=== PATIENT | male | born 1960 | race African-American/Black ===

== ENCOUNTER → 2017-02-08 | Outpatient (CLI) | payer MEDICARE ==
[~2017-02-08] MED LIST: ALBU18 IN; AMIO200T33 PO; ASPI81TA27 PO; ATEN50TA80; CARI-277 PO; FAM20T PO; FOLI1TAB6; IBU100LQ PO; LEVO125T66 PO; LISI40TA; LORA2TAB10 PO; MET50T GT; MULTTAB99 GT; NOR10T; QUET25TA37 PO
== END | disposition home or self-care (01) ==
LOC: Rad HDHVI 14:55
PROVIDERS: ATTEND Internal Medicine Cardiovascular Disease
DX: I11.0 Hypertensive heart disease with heart failure (principal); I50.9 Heart failure, unspecified; J44.9 Chronic obstructive pulmonary disease, unspecified; R06.01 Orthopnea; Z95.2 Presence of prosthetic heart valve; Z86.73 Personal history of transient ischemic attack (TIA), and cerebral infarction without residual deficits
CPT/HCPCS: 93306

== ENCOUNTER → 2017-04-04 | Outpatient (CLI) | payer MEDICARE ==
[2017-04-04 12:26] LABS: Urine Bilirubin Negative (Negative); Urine Blood Negative /uL (Negative); Urine Color Yellow (Yellow); Urine Glucose Normal (Normal); Urine Ketone Negative (Negative); Urine Nitrite Negative (Negative); Urine Urobilinogen Normal (Negative); Urine pH 5.5 (5.0-8.0)
[2017-04-04 12:35] LABS: Basophils # (auto) 0 uL; Basophils % (auto) 0.8 % (0.0-2.0); CONDITION Y; Eosinophils # (auto) 0.4 uL; Eosinophils % (auto) 6.9 % (0.0-7.0); Hematocrit 39.3 % (41.0-53.0); Hemoglobin 13.4 g/dL (13.5-17.5); Lymphocytes # (auto) 0.9 uL; Lymphocytes % (auto) 15.2 % (10.0-50.0); Mean Corpuscular Hgb Conc. 34.2 g/dL (32.0-36.0); Mean Corpuscular Volume 99.6 fL (80.0-100.0); Mean Platelet Volume 7.2 fL (7.4-10.4); Monocytes # (auto) 0.5 uL; Monocytes % (auto) 7.9 % (0.0-12.0); Neutrophils # (auto) 4.1 uL; Neutrophils % (auto) 69.2 % (37.0-80.0); Platelet Count (auto) 284 10^3/uL (140-450); Red Cell Distribution Width 14.9 % (11.6-16.0)
[2017-04-04 13:04] LABS: Albumin 3.7 g/dL (3.4-5.0); BUN/Creatinine Ratio 20.5; Bilirubin, Direct 0.2 mg/dL (0-0.2); Bilirubin, Total 0.5 mg/dL (0.2-1.0); Calcium 8.9 mg/dL (8.5-10.1); Potassium 4.5 mmol/L (3.5-5.1); Total Protein 7.8 g/dL (6.4-8.2)
== END | disposition home or self-care (01) ==
LOC: LAB 08:28
PROVIDERS: ATTEND Internal Medicine Cardiovascular Disease
DX: I10 Essential (primary) hypertension (principal); E78.00 Pure hypercholesterolemia, unspecified; K74.1 Hepatic sclerosis; E11.9 Type 2 diabetes mellitus without complications; E03.9 Hypothyroidism, unspecified; D64.9 Anemia, unspecified; E55.9 Vitamin D deficiency, unspecified; N39.0 Urinary tract infection, site not specified
CPT/HCPCS: 36415; 80048; 80061; 80076; 81003; 82306; 83036; 84443; 85025

== ENCOUNTER → 2017-06-20 | Outpatient (CLI) | payer MEDICARE | END | disposition home or self-care (01) | LOC: LAB 09:14 | PROVIDERS: ATTEND Internal Medicine Cardiovascular Disease | DX: E03.9 Hypothyroidism, unspecified (principal) | CPT/HCPCS: 36415; 84443 ==

== ENCOUNTER → 2017-08-01 | Outpatient (CLI) | payer MEDICARE | END | disposition home or self-care (01) | LOC: Rad HDHVI 11:02 | PROVIDERS: ATTEND Internal Medicine Cardiovascular Disease | DX: M85.88 Other specified disorders of bone density and structure, other site (principal); Z96.643 Presence of artificial hip joint, bilateral ==

== ENCOUNTER 2017-08-03 17:26 | Emergency (ER) | payer MEDICARE ==
[~2017-08-03] VITALS: Ht 180.3 cm; Wt 62.1 kg
[2017-08-03 18:12] VITALS: BP 117/79
[2017-08-03 19:02] LABS: Albumin 2.9 g/dL (3.4-5.0); BUN/Creatinine Ratio 13.7; Bilirubin, Total 0.7 mg/dL (0.2-1.0); Calcium 8.2 mg/dL (8.5-10.1); Potassium 4.4 mmol/L (3.5-5.1); Total Protein 7.7 g/dL (6.4-8.2)
[2017-08-03 19:18] LABS: Basophils # (auto) 0 uL; Basophils % (auto) 0.3 % (0.0-2.0); Eosinophils # (auto) 0.4 uL; Eosinophils % (auto) 5.8 % (0.0-7.0); Hematocrit 37.7 % (41.0-53.0); Hemoglobin 12.3 g/dL (13.5-17.5); Lymphocytes # (auto) 0.5 uL; Lymphocytes % (auto) 7.9 % (10.0-50.0); Mean Corpuscular Hemoglobin 34.2 pg (28.0-32.0); Mean Corpuscular Hgb Conc. 32.6 g/dL (32.0-36.0); Mean Corpuscular Volume 104.8 fL (80.0-100.0); Mean Platelet Volume 6.4 fL (6.9-10.8); Monocytes # (auto) 0.5 uL; Monocytes % (auto) 7.8 % (0.0-12.0); Neutrophils # (auto) 4.8 uL; Neutrophils % (auto) 78.2 % (37.0-80.0); Platelet Count (auto) 181 10^3/uL (140-450); Red Cell Distribution Width 13.5 % (11.8-14.3); White Blood Cell 6.1 10^3/uL (4.4-10.8)
== END 2017-08-03 23:05 | disposition left against medical advice (07) ==
LOC: ER 17:36
DX: R50.9 Fever, unspecified (principal); Z53.21 Procedure and treatment not carried out due to patient leaving prior to being seen by health care provider
CPT/HCPCS: 36415; 80053; 85025

== ENCOUNTER → 2017-11-16 | Outpatient (CLI) | payer MEDICARE ==
[~2017-11-16] MED LIST changes: -IBU100LQ PO; +IBUP100S11 PO
[2017-11-16 12:07] LABS: Urine Blood TRACE /uL (Negative); Urine Specific Gravity 1.026 (1.001-1.035)
[2017-11-16 12:10] LABS: Basophils # (auto) 0.1 uL; Basophils % (auto) 0.9 % (0.0-2.0); Eosinophils # (auto) 0.4 uL; Hematocrit 38.6 % (41.0-53.0); Hemoglobin 12.8 g/dL (13.5-17.5); Lymphocytes # (auto) 0.7 uL; Lymphocytes % (auto) 10.4 % (10.0-50.0); Mean Corpuscular Hemoglobin 31.6 pg (28.0-32.0); Mean Corpuscular Hgb Conc. 33.2 g/dL (32.0-36.0); Mean Corpuscular Volume 95.2 fL (80.0-100.0); Monocytes # (auto) 0.5 uL; Monocytes % (auto) 7.8 % (0.0-12.0); Neutrophils % (auto) 74.9 % (37.0-80.0); Nucleated Red Blood Cells % 0.6 %; Platelet Count (auto) 262 10^3/uL (140-450); Red Blood Cells 4.05 10^6/uL (4.5-5.90); Red Cell Distribution Width 14.8 % (11.8-14.3); White Blood Cell 6.7 10^3/uL (4.4-10.8)
[2017-11-16 12:23] LABS: Free T4 (Free Thyroxine) 1.02 ng/dL (0.89-1.76); Prostate Specific Antigen 0.4 ng/mL (0.0-4.0)
[2017-11-16 12:30] LABS: Albumin 3.6 g/dL (3.4-5.0); BUN/Creatinine Ratio 20.7; Bilirubin, Direct 0.2 mg/dL (0-0.2); Bilirubin, Total 0.7 mg/dL (0.2-1.0); Calcium 8.9 mg/dL (8.5-10.1); Potassium 4.2 mmol/L (3.5-5.1); Total Protein 8.6 g/dL (6.4-8.2)
== END | disposition home or self-care (01) ==
LOC: Rad HDHVI 07:59
PROVIDERS: ATTEND Internal Medicine Cardiovascular Disease
DX: I34.0 Nonrheumatic mitral (valve) insufficiency (principal); E78.00 Pure hypercholesterolemia, unspecified; D64.9 Anemia, unspecified; E11.9 Type 2 diabetes mellitus without complications; E03.9 Hypothyroidism, unspecified; E55.9 Vitamin D deficiency, unspecified; K74.1 Hepatic sclerosis; R53.81 Other malaise; R97.20 Elevated prostate specific antigen [PSA]; I10 Essential (primary) hypertension; D51.9 Vitamin B12 deficiency anemia, unspecified
CPT/HCPCS: 36415; 80048; 80061; 80076; 81003; 82306; 82607; 83036; 84153; 84439; 84443; 85025; 93306

== ENCOUNTER → 2018-02-21 | Outpatient (CLI) | payer MEDICARE ==
[2018-02-21 16:11] LABS: Basophils # (auto) 0.1 uL; Basophils % (auto) 1.4 % (0.0-2.0); Eosinophils # (auto) 0.7 uL; Eosinophils % (auto) 9.6 % (0.0-7.0); Hemoglobin 12.5 g/dL (13.5-17.5); Lymphocytes # (auto) 0.6 uL; Lymphocytes % (auto) 8.3 % (10.0-50.0); Mean Corpuscular Hemoglobin 31.4 pg (28.0-32.0); Mean Corpuscular Hgb Conc. 33.8 g/dL (32.0-36.0); Mean Corpuscular Volume 92.9 fL (80.0-100.0); Monocytes # (auto) 0.5 uL; Monocytes % (auto) 6.7 % (0.0-12.0); Neutrophils # (auto) 5.5 uL; Nucleated Red Blood Cells % 0.2 %; Platelet Count (auto) 224 10^3/uL (140-450); Red Blood Cells 3.99 10^6/uL (4.5-5.90); White Blood Cell 7.5 10^3/uL (4.4-10.8)
[2018-02-21 16:16] LABS: INR 0.98 (0.9-1.15); Prothrombin Time 10.7 sec (9.37-12.3)
[2018-02-21 16:28] LABS: Albumin 3.4 g/dL (3.4-5.0); BUN/Creatinine Ratio 15.1; Bilirubin, Total 0.5 mg/dL (0.2-1.0); CRP High Sensitivity 5.56 mg/dL (< 0.3); Calcium 8.9 mg/dL (8.5-10.1); Potassium 4.2 mmol/L (3.5-5.1); Total Protein 8.4 g/dL (6.4-8.2)
== END | disposition home or self-care (01) ==
LOC: Rad HDHVI 13:51
PROVIDERS: ATTEND Internal Medicine Cardiovascular Disease
DX: Z01.818 Encounter for other preprocedural examination (principal); R10.2 Pelvic and perineal pain; I10 Essential (primary) hypertension; E03.9 Hypothyroidism, unspecified; E11.9 Type 2 diabetes mellitus without complications; E78.00 Pure hypercholesterolemia, unspecified; Z96.643 Presence of artificial hip joint, bilateral
CPT/HCPCS: 36415; 72192; 80053; 85025; 85610; 85652; 85730; 86141

== ENCOUNTER → 2018-03-08 | Outpatient (CLI) | payer MEDICARE | END | disposition home or self-care (01) | LOC: RT 12:24 | DX: Z01.818 Encounter for other preprocedural examination (principal); I10 Essential (primary) hypertension; E03.9 Hypothyroidism, unspecified; E11.9 Type 2 diabetes mellitus without complications; E78.00 Pure hypercholesterolemia, unspecified | CPT/HCPCS: 36600; 82805 ==

== ENCOUNTER → 2018-03-13 | Outpatient (CLI) | payer MEDICARE ==
[2018-03-13 16:23] LABS: Partial Thromboplastin Time 31.5 sec (23.78-33.04); Prothrombin Time 10.7 sec (9.27-12.13)
[2018-03-13 16:31] LABS: Albumin 3.5 g/dL (3.4-5.0); BUN/Creatinine Ratio 12.5; Basophils # (auto) 0.1 uL; Basophils % (auto) 0.9 % (0.0-2.0); Bilirubin, Total 0.5 mg/dL (0.2-1.0); CRP High Sensitivity 7.06 mg/dL (< 0.3); Calcium 8.7 mg/dL (8.5-10.1); Eosinophils # (auto) 0.8 uL; Eosinophils % (auto) 9.9 % (0.0-7.0); Hemoglobin 12.1 g/dL (13.5-17.5); Lymphocytes # (auto) 0.9 uL; Mean Corpuscular Hemoglobin 31.5 pg (28.0-32.0); Mean Corpuscular Hgb Conc. 33.7 g/dL (32.0-36.0); Mean Corpuscular Volume 93.5 fL (80.0-100.0); Monocytes # (auto) 0.6 uL; Monocytes % (auto) 7.2 % (0.0-12.0); Neutrophils # (auto) 5.9 uL; Nucleated Red Blood Cells % 0.1 %; Platelet Count (auto) 241 10^3/uL (140-450); Potassium 3.7 mmol/L (3.5-5.1); Red Blood Cells 3.85 10^6/uL (4.5-5.90); Red Cell Distribution Width 14.9 % (11.8-14.3); Total Protein 8.6 g/dL (6.4-8.2); White Blood Cell 8.3 10^3/uL (4.4-10.8)
== END | disposition home or self-care (01) ==
LOC: LAB 14:59
PROVIDERS: ATTEND Internal Medicine Cardiovascular Disease
DX: M25.551 Pain in right hip (principal); E03.9 Hypothyroidism, unspecified; E78.00 Pure hypercholesterolemia, unspecified; E11.9 Type 2 diabetes mellitus without complications; I10 Essential (primary) hypertension; D68.9 Coagulation defect, unspecified; Z96.641 Presence of right artificial hip joint; Z79.82 Long term (current) use of aspirin
CPT/HCPCS: 36415; 80053; 85025; 85610; 85652; 85730; 86141

== ENCOUNTER 2018-03-20 13:15 | Emergency (ER) | payer MEDICARE ==
[~2018-03-20] VITALS: Ht 180.3 cm; Wt 63.5 kg
[2018-03-20] MEDS ORDERED: HYDROmorphone HCL 2 MG/ML VL IV ONE (15:45)
[2018-03-20] MEDS ORDERED: ONDANSETRON HCL 4 MG/2 ML VIAL IV ONE (15:45)
[2018-03-20] MEDS ORDERED: SODIUM CHLORIDE 0.9% 500 ML IV ONE (15:45)
[2018-03-20 16:46] LABS: Basophils # (auto) 0.1 uL; Basophils % (auto) 0.8 % (0.0-2.0); Eosinophils # (auto) 0.6 uL; Eosinophils % (auto) 7.5 % (0.0-7.0); Hematocrit 38.1 % (41.0-53.0); Hemoglobin 12.8 g/dL (13.5-17.5); Lymphocytes # (auto) 0.6 uL; Lymphocytes % (auto) 7.3 % (10.0-50.0); Mean Corpuscular Hemoglobin 31.2 pg (28.0-32.0); Mean Corpuscular Hgb Conc. 33.5 g/dL (32.0-36.0); Monocytes # (auto) 0.4 uL; Monocytes % (auto) 5.2 % (0.0-12.0); Neutrophils # (auto) 6.2 uL; Neutrophils % (auto) 79.2 % (37.0-80.0); Nucleated Red Blood Cells % 0.2 %; Platelet Count (auto) 245 10^3/uL (140-450); Red Cell Distribution Width 14.7 % (11.8-14.3); White Blood Cell 7.8 10^3/uL (4.4-10.8)
[2018-03-20 17:01] LABS: Albumin 3.2 g/dL (3.4-5.0); BUN/Creatinine Ratio 12.7; Calcium 8.5 mg/dL (8.5-10.1); Magnesium 1.7 mg/dL (1.6-2.6)
[2018-03-20 17:04] LABS: Bilirubin, Total 0.3 mg/dL (0.2-1.0); Total Protein 8.5 g/dL (6.4-8.2)
[2018-03-20 17:26] LABS: INR 0.98 (0.9-1.15); Partial Thromboplastin Time 30.3 sec (23.78-33.04); Prothrombin Time 10.5 sec (9.27-12.13)
[2018-03-20] MEDS ORDERED: HYDROcodone-ACET 10/325MG TAB PO ONE (19:00)
[2018-03-20] MEDS ORDERED: MORPHINE SULF INJ 2 MG/ML SYRINGE 1ML ONE (20:54)
[2018-03-20] MEDS ORDERED: MORPHINE SULFATE 8mg/ml INJ SDV IV ONE (21:00)
[2018-03-20 21:47] VITALS: BP 153/87
== END 2018-03-20 22:31 | disposition left against medical advice (07) ==
LOC: ER 13:15
DX: T84.51XA Infection and inflammatory reaction due to internal right hip prosthesis, initial encounter (principal); M00.851 Arthritis due to other bacteria, right hip; I12.9 Hypertensive chronic kidney disease with stage 1 through stage 4 chronic kidney disease, or unspecified chronic kidney disease; N18.3 Chronic kidney disease, stage 3 (moderate); J44.9 Chronic obstructive pulmonary disease, unspecified; Z79.82 Long term (current) use of aspirin; Z86.73 Personal history of transient ischemic attack (TIA), and cerebral infarction without residual deficits; Z87.11 Personal history of peptic ulcer disease; Z95.1 Presence of aortocoronary bypass graft; Z96.643 Presence of artificial hip joint, bilateral; Z90.49 Acquired absence of other specified parts of digestive tract; Z88.1 Allergy status to other antibiotic agents
CPT/HCPCS: 36415; 73502; 73700; 80053; 83735; 85025; 85610; 85730; 94761; 96374; 96375; 99285; J1170; J2270; J2405; J7030

== ENCOUNTER → 2018-03-22 | Outpatient (CLI) | payer MEDICARE ==
[~2018-03-22] MED LIST changes: +ONDANSETRON HCL 4 MG/2 ML VIAL IV ONE; +ONDANSETRON HCL 4 MG/2 ML VIAL ONE
[2018-03-22 14:15] VITALS: BP 111/67
[2018-03-22 15:15] VITALS: BP 129/83
== END | disposition home or self-care (01) ==
LOC: Rad HDHVI 14:09
PROVIDERS: ATTEND Internal Medicine Cardiovascular Disease
DX: Z01.818 Encounter for other preprocedural examination (principal); I13.10 Hypertensive heart and chronic kidney disease without heart failure, with stage 1 through stage 4 chronic kidney disease, or unspecified chronic kidney disease; E11.22 Type 2 diabetes mellitus with diabetic chronic kidney disease; N18.3 Chronic kidney disease, stage 3 (moderate); E03.9 Hypothyroidism, unspecified; J44.9 Chronic obstructive pulmonary disease, unspecified; I70.0 Atherosclerosis of aorta; M25.551 Pain in right hip; E78.00 Pure hypercholesterolemia, unspecified; Z79.82 Long term (current) use of aspirin; Z90.49 Acquired absence of other specified parts of digestive tract; Z96.641 Presence of right artificial hip joint; Z95.1 Presence of aortocoronary bypass graft; Z86.73 Personal history of transient ischemic attack (TIA), and cerebral infarction without residual deficits
CPT/HCPCS: 71046; 93005; 96374; G0463; J2405

== ENCOUNTER 2018-08-17 16:21 | Emergency (ER) | payer MEDICARE, MEDICAID ==
[~2018-08-17 16:21] MED LIST changes: -ONDANSETRON HCL 4 MG/2 ML VIAL IV ONE; -ONDANSETRON HCL 4 MG/2 ML VIAL ONE
[2018-08-17 17:42] VITALS: BP 137/84
== END 2018-08-17 17:13 | disposition home or self-care (01) ==
LOC: EDBD 16:21 → ER 16:21 → EDUNIT# 16:21 → ER 17:13
DX: S76.011A Strain of muscle, fascia and tendon of right hip, initial encounter (principal); J44.9 Chronic obstructive pulmonary disease, unspecified; I10 Essential (primary) hypertension; E07.9 Disorder of thyroid, unspecified; Z86.73 Personal history of transient ischemic attack (TIA), and cerebral infarction without residual deficits; Z79.82 Long term (current) use of aspirin; Z79.899 Other long term (current) drug therapy; Z88.1 Allergy status to other antibiotic agents; W10.9XXA Fall (on) (from) unspecified stairs and steps, initial encounter; Y93.89 Activity, other specified; Y99.8 Other external cause status; Y92.89 Other specified places as the place of occurrence of the external cause
CPT/HCPCS: 73502

== ENCOUNTER → 2018-08-27 | Outpatient (CLI) | payer MEDICARE, MEDICAID | END | disposition home or self-care (01) | LOC: Rad HDHVI 14:03 | PROVIDERS: ATTEND Internal Medicine Cardiovascular Disease | DX: I08.1 Rheumatic disorders of both mitral and tricuspid valves (principal); I71.1 Thoracic aortic aneurysm, ruptured | CPT/HCPCS: 93306 ==

== ENCOUNTER 2019-01-08 18:33 | Emergency (ER) | payer MEDICARE, MEDICAID ==
[~2019-01-08] VITALS: Ht 152.4 cm; Wt 65.8 kg
[2019-01-08 18:43] VITALS: BP 120/73
[2019-01-08] MEDS ORDERED: ACETAMINOPHEN 325 MG TAB PO ONE (19:00)
[2019-01-08 19:16] LABS: Basophils # (auto) 0.1 uL; Basophils % (auto) 0.6 % (0.0-2.0); Eosinophils # (auto) 0.2 uL; Eosinophils % (auto) 1.6 % (0.0-7.0); Hematocrit 37.7 % (41.0-53.0); Hemoglobin 12.5 g/dL (13.5-17.5); Lymphocytes # (auto) 0.5 uL; Lymphocytes % (auto) 4.3 % (10.0-50.0); Mean Corpuscular Hemoglobin 31.3 pg (28.0-32.0); Mean Corpuscular Hgb Conc. 33.1 g/dL (32.0-36.0); Mean Corpuscular Volume 94.7 fL (80.0-100.0); Monocytes % (auto) 8.5 % (0.0-12.0); Neutrophils # (auto) 10.1 uL; Platelet Count (auto) 236 10^3/uL (140-450); Red Blood Cells 3.99 10^6/uL (4.5-5.90); Red Cell Distribution Width 13.7 % (11.8-14.3); White Blood Cell 11.9 10^3/uL (4.4-10.8)
[2019-01-08 19:37] LABS: Alanine Aminotransferase 76 U/L (16-61); Albumin 2.8 g/dL (3.4-5.0); Anion Gap 6 (5-15); Aspartate Aminotransferase 30 U/L (15-37); BUN/Creatinine Ratio 18.6; Blood Urea Nitrogen 19 mg/dL (7-18); Calcium 8.2 mg/dL (8.5-10.1); Carbon Dioxide 22 mmol/L (21-32); Chloride 110 mmol/L (98-107); GFR African American 96 mL/min; GFR Non-African American 80 mL/min; Glucose 117 mg/dL (74-106); INR 1.07 (0.9-1.15); Partial Thromboplastin Time 30.7 sec (23.78-33.04); Prothrombin Time 11.4 sec (9.27-12.13); Sodium 138 mmol/L (136-145)
[2019-01-08 19:47] LABS: Alkaline Phosphatase 202 U/L (45-117); Bilirubin, Total 1.4 mg/dL (0.2-1.0); Total Protein 7.5 g/dL (6.4-8.2)
== END 2019-01-08 21:20 | disposition home or self-care (01) ==
LOC: EDBD 18:33 → ER 18:37
DX: R07.89 Other chest pain (principal); J44.9 Chronic obstructive pulmonary disease, unspecified; I10 Essential (primary) hypertension; E07.9 Disorder of thyroid, unspecified; Z88.1 Allergy status to other antibiotic agents; Z79.899 Other long term (current) drug therapy; Z86.73 Personal history of transient ischemic attack (TIA), and cerebral infarction without residual deficits; Z90.49 Acquired absence of other specified parts of digestive tract; Z96.641 Presence of right artificial hip joint; Z95.1 Presence of aortocoronary bypass graft
CPT/HCPCS: 36415; 71045; 80053; 83735; 83880; 84484; 85025; 85610; 85730; 93005

== ENCOUNTER → 2019-01-09 | Outpatient (CLI) | payer MEDICARE, MEDICAID ==
[2019-01-09 15:44] LABS: Basophils # (auto) 0 uL; Basophils % (auto) 0.3 % (0.0-2.0); Eosinophils # (auto) 0.3 uL; Eosinophils % (auto) 1.9 % (0.0-7.0); Hematocrit 38.2 % (41.0-53.0); Hemoglobin 12.5 g/dL (13.5-17.5); Lymphocytes # (auto) 0.6 uL; Lymphocytes % (auto) 4.5 % (10.0-50.0); Mean Corpuscular Hemoglobin 31.4 pg (28.0-32.0); Mean Corpuscular Hgb Conc. 32.8 g/dL (32.0-36.0); Mean Corpuscular Volume 95.8 fL (80.0-100.0); Monocytes # (auto) 1.2 uL; Monocytes % (auto) 8.6 % (0.0-12.0); Neutrophils # (auto) 12.1 uL; Neutrophils % (auto) 84.7 % (37.0-80.0); Nucleated Red Blood Cells % 0.1 %; Platelet Count (auto) 267 10^3/uL (140-450); Red Blood Cells 3.99 10^6/uL (4.5-5.90); Red Cell Distribution Width 14.2 % (11.8-14.3); White Blood Cell 14.3 10^3/uL (4.4-10.8)
== END | disposition home or self-care (01) ==
LOC: LAB 13:26
PROVIDERS: ATTEND Internal Medicine Cardiovascular Disease
DX: R70.0 Elevated erythrocyte sedimentation rate (principal); D64.9 Anemia, unspecified; I10 Essential (primary) hypertension
CPT/HCPCS: 36415; 85025; 85652

== ENCOUNTER → 2019-01-15 | Outpatient (CLI) | payer MEDICARE, BC | END | disposition home or self-care (01) | LOC: Rad HDHVI 14:11 | PROVIDERS: ATTEND Internal Medicine Cardiovascular Disease | DX: I08.3 Combined rheumatic disorders of mitral, aortic and tricuspid valves (principal); I11.9 Hypertensive heart disease without heart failure; R00.2 Palpitations | CPT/HCPCS: 93306 ==

== ENCOUNTER 2019-01-24 10:01 | Inpatient (IN) | payer BC, MEDICARE, MEDICAID ==
[~2019-01-24] VITALS: Ht 172.7 cm; Wt 89.0 kg
[2019-01-24] MEDS ORDERED: cefTRIAXone 1GM/50ML D5W 50 ML IV ONE (10:30)
[2019-01-24] MEDS ORDERED: IOHEXOL 300 MG/ML 100ML BOTTLE IJ ONE (10:36)
[2019-01-24 11:20] LABS: Basophils # (auto) 0.1 uL; Basophils % (auto) 0.4 % (0.0-2.0); Eosinophils # (auto) 0.2 uL; Eosinophils % (auto) 1.4 % (0.0-7.0); Hematocrit 39.7 % (41.0-53.0); Hemoglobin 12.8 g/dL (13.5-17.5); Lymphocytes # (auto) 0.6 uL; Lymphocytes % (auto) 3.8 % (10.0-50.0); Mean Corpuscular Hemoglobin 30.1 pg (28.0-32.0); Mean Corpuscular Hgb Conc. 32.3 g/dL (32.0-36.0); Mean Corpuscular Volume 93.1 fL (80.0-100.0); Monocytes % (auto) 5.7 % (0.0-12.0); Neutrophils % (auto) 88.7 % (37.0-80.0); Platelet Count (auto) 362 10^3/uL (140-450); Red Blood Cells 4.26 10^6/uL (4.5-5.90); Red Cell Distribution Width 13.3 % (11.8-14.3); White Blood Cell 16.9 10^3/uL (4.4-10.8)
[2019-01-24 11:28] LABS: Alanine Aminotransferase 45 U/L (16-61); Albumin 2.8 g/dL (3.4-5.0); Anion Gap 8 (5-15); Blood Urea Nitrogen 21 mg/dL (7-18); Carbon Dioxide 21 mmol/L (21-32); Chloride 106 mmol/L (98-107); Glucose 103 mg/dL (74-106); Potassium 3.8 mmol/L (3.5-5.1); Sodium 135 mmol/L (136-145)
[2019-01-24 11:33] LABS: Alkaline Phosphatase 256 U/L (45-117); Aspartate Aminotransferase 26 U/L (15-37); BUN/Creatinine Ratio 18.8; Bilirubin, Total 0.5 mg/dL (0.2-1.0); GFR African American 87 mL/min; GFR Non-African American 72 mL/min; Total Protein 8.5 g/dL (6.4-8.2)
[2019-01-24 11:34] LABS: INR 1.08 (0.9-1.15); Prothrombin Time 11.5 sec (9.27-12.13)
[2019-01-24] MEDS ORDERED: ONDANSETRON HCL 4 MG/2 ML VIAL IV ONE (12:30)
[2019-01-24] MEDS ORDERED: HYDROcodone-ACET 5/325MG TAB PO ONE (12:30)
[2019-01-24] MEDS ORDERED: LEVOTHYROXINE SODIUM 50 MCG TAB PO ONE (16:00)
[2019-01-24] MEDS ORDERED: CLINDAMYCIN 600MG IV 50 ML IV ONE (16:15)
[2019-01-24] MEDS ORDERED: MORPHINE SULF INJ 2 MG/ML SYRINGE 1ML IV ONE (16:45)
[2019-01-24] MEDS ORDERED: NITROGLYCERIN 0.4 MG SL TAB SL PRN (17:00)
[2019-01-24] MEDS ORDERED: MORPHINE SULF INJ 2 MG/ML SYRINGE 1ML IV PRN (17:00)
[2019-01-24] MEDS ORDERED: VANCOMYCIN 1GM/250ML 250 ML IV ONE (17:00)
--- NOTE | 2019-01-24 18:41 | NUR ---
PRN MED NEB ASSESSMENT. PT DENIES SOB. NO DISTRESS NOTED AT THIS TIME. POX 95% ON RA HR 82 RR 18. BS ARE CLEAR AND DIMINISHED. TX NOT GIVEN.
--- NOTE | 2019-01-24 20:00 | NUR ---
Patient arrived on unit. Patient awake and alert. Patient is severely hard of hearing and vision impaired. Notice in patient room about hearing and vision impairment placed. Attempted to obtain phone number of family to update on status. Patient was not able to comprehend request. Patient able to see objects within reach but was not able to read written text. Patient orientated to room, call light within patient's reach. Bed locked in lowest position. Will continue to monitor.
[2019-01-24] MEDS: KETOROLAC TROMETH 30 MG/ML 1ML VIAL IV PRN (20:30)
[2019-01-24 22:00] VITALS: BP 110/61
[2019-01-24] MEDS: ATORVASTATIN 20 MG TAB PO SCH (22:29)
[2019-01-24] MEDS: ZOLPIDEM TARTRATE 5 MG TAB PO SCH (22:29)
[2019-01-24] MEDS: PREGABALIN 25 MG CAP PO SCH (22:30)
[2019-01-24] MEDS: METOPROLOL TARTRATE 25 MG TAB PO SCH (22:30)
[2019-01-25] MEDS: KETOROLAC TROMETH 30 MG/ML 1ML VIAL IV PRN ×3 (02:37→18:24)
[2019-01-25 02:49] VITALS: BP 110/59
[2019-01-25 04:49] VITALS: BP 115/48
--- NOTE | 2019-01-25 07:26 | NUR ---
PT. ASSESSED FOR PRN. MED NEB TX. , PT. SLEEPING AT THIS TIME, NO RESP. DISTRESS OR SOB NOTED. HR=68,SPO2 95% ON RA. BS. ARE CLEAR. PRN. TX. NOT INDICATED AT THIS TIME, PT. MAY CALL IF NEEDED.
[2019-01-25 08:10] VITALS: BP 104/62
[2019-01-25] MEDS: PREGABALIN 25 MG CAP PO SCH ×2 (08:46→21:33)
[2019-01-25] MEDS: cefTRIAXone 1GM/50ML D5W 50 ML IV SCH (08:46)
[2019-01-25] MEDS: LORazepam 0.5 MG TAB PO PRN ×2 (08:47→18:24)
[2019-01-25] MEDS: LEVOTHYROXINE SODIUM 100 MCG TAB PO SCH (08:47)
[2019-01-25] MEDS: METOPROLOL TARTRATE 25 MG TAB PO SCH ×2 (08:58→21:33)
[2019-01-25] MEDS: AMIODARONE HCL 200 MG TAB PO SCH (08:59)
[2019-01-25] MEDS: LISINOPRIL 20 MG TAB PO SCH (08:59)
--- NOTE | 2019-01-25 09:21 | NUR ---
ROUNDING Dr Dodson rounding on patient. New orders received and noted.
[2019-01-25] MEDS ORDERED: DOCUSATE SOD 100 MG CAP PO PRN (09:30)
--- NOTE | 2019-01-25 10:45 | NUR ---
SHERRY IN TO VISIT PATIENT
[2019-01-25 12:19] VITALS: BP 99/54
[2019-01-25 16:31] VITALS: BP 106/71
[2019-01-25] MEDS: ALBUTEROL SULF 2.5 MG/0.5ML(0.5%) NEB SOLN NEB PRN (18:24)
[2019-01-25] MEDS: ZOLPIDEM TARTRATE 5 MG TAB PO SCH (21:33)
[2019-01-25] MEDS: ATORVASTATIN 20 MG TAB PO SCH (21:33)
[2019-01-25 22:00] VITALS: BP 102/63
[2019-01-26] MEDS: KETOROLAC TROMETH 30 MG/ML 1ML VIAL IV PRN ×4 (00:40→21:20)
[2019-01-26 04:30] VITALS: BP 92/59
--- NOTE | 2019-01-26 07:50 | NUR ---
Opening Shift Note Assumed care of patient, awake and alert and oriented. Patient deaf, and using white board to write on. No S/S of distress/SOB. C/O headache, will administer PRN pain meds. Instructed on POC and to call for assist PRN, will continue to monitor for changes.
[2019-01-26] MEDS: LORazepam 0.5 MG TAB PO PRN ×2 (07:54→16:00)
--- NOTE | 2019-01-26 08:28 | NUR ---
DR Dodson paged and made aware that patient was stating vision was becoming worse. New order received for artificial tears, will continue to monitor.
[2019-01-26 08:30] VITALS: BP 106/62
[2019-01-26] MEDS: cefTRIAXone 1GM/50ML D5W 50 ML IV SCH (10:09)
[2019-01-26] MEDS: PREGABALIN 25 MG CAP PO SCH ×2 (10:10→21:29)
[2019-01-26] MEDS: LEVOTHYROXINE SODIUM 100 MCG TAB PO SCH (10:11)
[2019-01-26] MEDS: METOPROLOL TARTRATE 25 MG TAB PO SCH ×2 (10:11→21:19)
[2019-01-26] MEDS: LISINOPRIL 20 MG TAB PO SCH (10:11)
[2019-01-26] MEDS: AMIODARONE HCL 200 MG TAB PO SCH (10:11)
[2019-01-26] MEDS: ARTIFICIAL TEARS 15ml EACHEYE PRN ×3 (10:44→23:48)
[2019-01-26 13:00] VITALS: BP 109/64
[2019-01-26 17:00] VITALS: BP 111/62
--- NOTE | 2019-01-26 18:13 | NUR ---
RT NOTE PRN ASSESSMENT DONE PT SITTING UP IN BED NO DISTRESS NOTED. PT B/S ARE CLEAR.
[2019-01-26] MEDS: Ensure HIGH Protein Chocolate 8oz Bottle PO SCH ×2 (18:23→21:21)
--- NOTE | 2019-01-26 19:03 | NUR ---
Patient care and report handed off to Malia LOCK.
[2019-01-26] MEDS: ALBUTEROL SULF 2.5 MG/0.5ML(0.5%) NEB SOLN NEB PRN (19:39)
--- NOTE | 2019-01-26 20:15 | NUR ---
Opening Shift Note Assumed care of pt, sitting up in bed with family at bedside, awake and alert x4. No S/S of distress or SOB, no pain noted or reported at this time. Respirations are even and unlabored. Pt. is deaf, used white board to update pt. on POC and instructed to call for assistance as needed, pt. verbalized understanding. Bed locked in lowest position, side rails up x2, call light within reach. Will continue to monitor Q1HR and PRN.
[2019-01-26] MEDS: ZOLPIDEM TARTRATE 5 MG TAB PO SCH (21:18)
[2019-01-26] MEDS: ATORVASTATIN 20 MG TAB PO SCH (21:19)
[2019-01-26 22:00] VITALS: BP 110/61
[2019-01-27] MEDS: LORazepam 0.5 MG TAB PO PRN ×3 (04:22→21:19)
[2019-01-27] MEDS: KETOROLAC TROMETH 30 MG/ML 1ML VIAL IV PRN ×4 (04:22→22:29)
[2019-01-27 05:00] VITALS: BP 94/50
[2019-01-27] MEDS: Ensure HIGH Protein Chocolate 8oz Bottle PO SCH ×5 (06:00→21:21)
--- NOTE | 2019-01-27 07:14 | NUR ---
Respiratory note: PT IS IN NO DISTRESS. HEART RATE-71, RESP RATE-16. MEDNEB NOT INDICATED AT THIS TIME. RN WILL BE NOTIFIED.
[2019-01-27 08:00] VITALS: BP 91/52
--- NOTE | 2019-01-27 08:00 | NUR ---
Opening Shift Note Assumed care of patient, awake and alert and oriented. Patient deaf, and using white board to write on. No S/S of distress/SOB. Instructed on POC and to call for assist PRN, will continue to monitor for changes.
[2019-01-27] MEDS: AMIODARONE HCL 200 MG TAB PO SCH (10:33)
[2019-01-27] MEDS: PREGABALIN 25 MG CAP PO SCH ×2 (10:34→21:19)
[2019-01-27] MEDS: LEVOTHYROXINE SODIUM 100 MCG TAB PO SCH (10:34)
[2019-01-27] MEDS: cefTRIAXone 1GM/50ML D5W 50 ML IV SCH (10:34)
[2019-01-27] MEDS: LISINOPRIL 20 MG TAB PO SCH (10:35)
[2019-01-27] MEDS: METOPROLOL TARTRATE 25 MG TAB PO SCH ×2 (10:35→21:20)
[2019-01-27] MEDS: ARTIFICIAL TEARS 15ml EACHEYE PRN ×3 (10:36→22:29)
[2019-01-27 12:30] VITALS: BP 120/72
--- NOTE | 2019-01-27 15:40 | NUR ---
Midline dressing change performed aseptically due to dressing coming off partially. Patient tolerated procedure well, no s/s of infection noted to site. Will continue to monitor.
[2019-01-27 16:50] VITALS: BP 117/74
--- NOTE | 2019-01-27 18:08 | NUR ---
EKG 12-lead EKG done due to change in tele monitor of ST elevation. Patient in bed resting calmly on no c/o any CP or discomfort. Dr Dodson made aware of strip and NNO. Will continue to monitor.
--- NOTE | 2019-01-27 18:10 | NUR ---
Respiratory note: PT ASSESSED FOR PRN MED NEB TX. HR 68, RR 16, SPO2 97% ON R/A, BS CLEAR T/O. NO SIGNS OF ANY RESPIRATORY DISTRESS NOTED. ADVISED T TO PLEASE CALL IF NEEDED.
--- NOTE | 2019-01-27 19:02 | NUR ---
Patient care and report handed off to Malia LOCK.
--- NOTE | 2019-01-27 19:05 | NUR ---
Opening Shift Note Assumed care of pt, resting in bed watching television, awake and alert x4. No S/S of distress or SOB, no pain noted or reported at this time. Respirations are even and unlabored. Pt. is deaf, used white board to update pt. on POC and instructed to call for assistance as needed, pt. verbalized understanding. Bed locked in lowest position, side rails up x2, call light within reach. Will continue to monitor Q1HR and PRN.
[2019-01-27] MEDS: ATORVASTATIN 20 MG TAB PO SCH (21:20)
[2019-01-27] MEDS: ZOLPIDEM TARTRATE 5 MG TAB PO SCH (21:20)
[2019-01-27 21:39] VITALS: BP 118/67
[2019-01-28] MEDS: KETOROLAC TROMETH 30 MG/ML 1ML VIAL IV PRN ×4 (04:59→22:38)
[2019-01-28 05:08] VITALS: BP 125/65
[2019-01-28] MEDS: Ensure HIGH Protein Chocolate 8oz Bottle PO SCH ×4 (06:13→21:23)
[2019-01-28 08:20] VITALS: BP 105/68
[2019-01-28 09:10] VITALS: BP 105/68
[2019-01-28] MEDS: LISINOPRIL 20 MG TAB PO SCH (10:00)
[2019-01-28] MEDS: METOPROLOL TARTRATE 25 MG TAB PO SCH ×2 (10:00→21:23)
[2019-01-28] MEDS: cefTRIAXone 1GM/50ML D5W 50 ML IV SCH (10:23)
[2019-01-28] MEDS: AMIODARONE HCL 200 MG TAB PO SCH (10:23)
[2019-01-28] MEDS: PREGABALIN 25 MG CAP PO SCH ×2 (10:23→21:23)
[2019-01-28] MEDS: LEVOTHYROXINE SODIUM 100 MCG TAB PO SCH (10:23)
--- NOTE | 2019-01-28 11:42 | NUR ---
Respiratory note: PT ASSESSED FOR PRN MED NEB TX. POX 96% ON RA, RR 16, HR 86. B/S ARE CLEAR AND DIMINISHED THROUGHOUT. MED NEB TX IS NO INDICATED AT THIS TIME. NO SOB NOTED.
[2019-01-28 11:47] LABS: Basophils # (auto) 0.1 uL; Basophils % (auto) 0.4 % (0.0-2.0); Eosinophils # (auto) 0.3 uL; Eosinophils % (auto) 2.7 % (0.0-7.0); Hematocrit 33.8 % (41.0-53.0); Lymphocytes # (auto) 0.9 uL; Lymphocytes % (auto) 6.6 % (10.0-50.0); Mean Corpuscular Hemoglobin 29.8 pg (28.0-32.0); Mean Corpuscular Hgb Conc. 32.6 g/dL (32.0-36.0); Mean Corpuscular Volume 91.7 fL (80.0-100.0); Monocytes # (auto) 1.1 uL; Monocytes % (auto) 8.7 % (0.0-12.0); Neutrophils # (auto) 10.6 uL; Neutrophils % (auto) 81.6 % (37.0-80.0); Platelet Count (auto) 325 10^3/uL (140-450); Red Blood Cells 3.69 10^6/uL (4.5-5.90); Red Cell Distribution Width 13.2 % (11.8-14.3)
[2019-01-28 12:01] LABS: Calcium 8.6 mg/dL (8.5-10.1)
[2019-01-28 12:05] VITALS: BP 131/71
[2019-01-28] MEDS: LORazepam 0.5 MG TAB PO PRN (12:33)
--- NOTE | 2019-01-28 14:36 | NUR ---
NUTRITION ASSESSMENT NOTES Please refer to link notes of nutrition screen form filed under the intervention section of the plan of care for further details. Est. Needs: 1900 kcal to 2200 kcal (30-35 kcal/kgBW), 63 gms to 75 gms pro (1.0-1.2 gms/kgBW). Will continue to monitor pertinent labs and reassess nutrient need prn Thank you. Addendum: 01/28/19 at [address] Amended: Links added.
[2019-01-28 17:00] VITALS: BP 126/79
[2019-01-28] MEDS: HYDROcodone-ACET 10/325MG TAB PO PRN (20:09)
[2019-01-28] MEDS: ARTIFICIAL TEARS 15ml EACHEYE PRN (20:09)
[2019-01-28 21:17] VITALS: BP 121/71
[2019-01-28] MEDS: ZOLPIDEM TARTRATE 5 MG TAB PO SCH (21:21)
[2019-01-28] MEDS: ATORVASTATIN 20 MG TAB PO SCH (21:21)
--- NOTE | 2019-01-28 22:44 | NUR ---
Respiratory note: PT SEEN AND ASSESSED FOR PRN MED NEB TX AT 2244. TX NOT INDICATED AT THIS TIME. PT DISPLAYING NO SIGNS OF DISTRESS. HR 61 RR 18 POX 96% ON ROOM AIR. BREATH SOUNDS WERE CLEAR AND DIMINISHED BILATERALLY. PT AWARE TO CALL FOR RT IF ANY DISTRESS OCCURS.
[2019-01-29] MEDS: HYDROcodone-ACET 10/325MG TAB PO PRN ×4 (03:33→22:04)
[2019-01-29 05:00] VITALS: BP 117/64
[2019-01-29] MEDS: Ensure HIGH Protein Chocolate 8oz Bottle PO SCH ×4 (06:27→22:03)
[2019-01-29] MEDS: LEVOTHYROXINE SODIUM 25 MCG TAB PO SCH (06:37)
[2019-01-29] MEDS: LEVOTHYROXINE SODIUM 100 MCG TAB PO SCH (06:37)
[2019-01-29] MEDS: KETOROLAC TROMETH 30 MG/ML 1ML VIAL IV PRN ×2 (07:33→16:55)
[2019-01-29 08:30] VITALS: BP 98/66
[2019-01-29] MEDS: METOPROLOL TARTRATE 25 MG TAB PO SCH ×2 (09:39→22:00)
[2019-01-29] MEDS: LISINOPRIL 20 MG TAB PO SCH (09:43)
[2019-01-29] MEDS: PREGABALIN 25 MG CAP PO SCH ×2 (09:44→22:00)
[2019-01-29] MEDS: AMIODARONE HCL 200 MG TAB PO SCH (09:44)
[2019-01-29] MEDS: LORazepam 0.5 MG TAB PO PRN ×2 (09:44→18:39)
[2019-01-29] MEDS: cefTRIAXone 1GM/50ML D5W 50 ML IV SCH (09:45)
--- NOTE | 2019-01-29 10:00 | NUR ---
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 REASSESSED BP. BP 116/54. LOPRESSOR GIVEN, ZESTRIL HELD. PT REPORTS PAIN IN EYES AND FACE, PRN PAIN MEDICATION, GIVEN WILL CONTINUE TO MONITOR.
[2019-01-29 13:25] VITALS: BP 112/72
--- NOTE | 2019-01-29 15:00 | NUR ---
Respiratory note: PT ASSESSED FOR MEDNEB TX. PT IN NO RESPIRATORY DISTRESS. SPO2 92% ON RA HR 72 RR 14 B/S CLEAR. PT AWARE TO HAVE RT PAGE IF THEY BECOME SOB.
[2019-01-29] MEDS: ARTIFICIAL TEARS 15ml EACHEYE PRN ×2 (16:43→22:06)
[2019-01-29 16:44] VITALS: BP 120/62
--- NOTE | 2019-01-29 21:20 | NUR ---
Respiratory note: PT ASSESSED FOR PRN MED NEB TX. HR 75, RR 18, SPO2 95% ON R/A, BS CLEAR. NO SIGNS OF ANY RESPIRATORY DISTRESS NOTED. ADVISED PT TO PLEASE CALL IF TX IS NEEDED.
[2019-01-29 22:00] VITALS: BP 122/52
[2019-01-29] MEDS: ZOLPIDEM TARTRATE 5 MG TAB PO SCH (22:04)
[2019-01-29] MEDS: ATORVASTATIN 20 MG TAB PO SCH (22:04)
[2019-01-30 05:00] VITALS: BP 109/60
[2019-01-30] MEDS: Ensure HIGH Protein Chocolate 8oz Bottle PO SCH ×4 (05:58→21:57)
[2019-01-30] MEDS: LEVOTHYROXINE SODIUM 100 MCG TAB PO SCH (07:00)
[2019-01-30] MEDS: LEVOTHYROXINE SODIUM 25 MCG TAB PO SCH (07:00)
[2019-01-30] MEDS: HYDROcodone-ACET 10/325MG TAB PO PRN ×2 (07:01→17:12)
[2019-01-30] MEDS: ARTIFICIAL TEARS 15ml EACHEYE PRN ×2 (07:02→17:12)
[2019-01-30 08:17] VITALS: BP 120/74
--- NOTE | 2019-01-30 08:24 | NUR ---
LEFT MESSAGE FOR DR VERDE. PT EYES STILL VERY RED AND SWOLLEN, NOTIFIED MD AND REQUESTED TOPICAL MEDICINE FOR EYES, WILL CONTINUE TO MONITOR.
[2019-01-30] MEDS: cefTRIAXone 1GM/50ML D5W 50 ML IV SCH (09:19)
[2019-01-30] MEDS: PREGABALIN 25 MG CAP PO SCH ×2 (09:19→21:56)
[2019-01-30] MEDS: METOPROLOL TARTRATE 25 MG TAB PO SCH ×2 (09:20→21:57)
[2019-01-30] MEDS: LISINOPRIL 20 MG TAB PO SCH (09:20)
[2019-01-30] MEDS: AMIODARONE HCL 200 MG TAB PO SCH (09:21)
[2019-01-30] MEDS: LORazepam 0.5 MG TAB PO PRN (09:23)
[2019-01-30 12:17] VITALS: BP 114/65
--- NOTE | 2019-01-30 13:13 | NUR ---
NO WORD FROM DR VERDE YET, AWAITING CALL BACK.
--- NOTE | 2019-01-30 13:22 | NUR ---
Respiratory note: ASSESSED PT FOR PRN MEDNEB TX. HR 65, RR 16, POX 96% ON ROOM AIR. BREATH SOUNDS CLEAR/DIMINISHED THROUGHOUT. NO S/S OF RESPIRATORY DISTRESS. MEDNEB TX NOT INDICATED AT THIS TIME. ADVISED PT TO CALL FOR RT IF FEELING SOB.
--- NOTE | 2019-01-30 14:00 | NUR ---
PT SLEEPING IN BED, WILL CONTINUE TO MONITOR.
[2019-01-30 16:49] VITALS: BP 125/73
--- NOTE | 2019-01-30 17:42 | NUR ---
LEFT DR VERDE ANOTHER MESSAGE NOTIFYING THAT PT IS REQUESTING TORADOL FOR PAIN, AWAITING CALL BACK, WILL CONTINUE TO MONITOR.
--- NOTE | 2019-01-30 19:05 | NUR ---
AT BEDSIDE SPEAKING TO PATIENT AND HIS , DISCUSSING PLAN OF CARE.
--- NOTE | 2019-01-30 19:30 | NUR ---
DR VERDE LEFT MESSAGE TO GIVE TORADOL 30 MG IV Q 6HRS. NO FURTHER ORDERS.
[2019-01-30] MEDS: KETOROLAC TROMETH 30 MG/ML 1ML VIAL IV PRN (20:45)
[2019-01-30] MEDS: ATORVASTATIN 20 MG TAB PO SCH (21:57)
[2019-01-30] MEDS: ZOLPIDEM TARTRATE 5 MG TAB PO SCH (21:57)
[2019-01-30 22:34] VITALS: BP 104/56
[2019-01-31 05:38] VITALS: BP 100/65
[2019-01-31] MEDS: Ensure HIGH Protein Chocolate 8oz Bottle PO SCH ×4 (05:59→22:00)
--- NOTE | 2019-01-31 06:45 | NUR ---
IV Right hand found pulled out in bed IV catheter fully intact. No bleeding noted from site.
[2019-01-31] MEDS: LEVOTHYROXINE SODIUM 100 MCG TAB PO SCH (06:46)
[2019-01-31] MEDS: LEVOTHYROXINE SODIUM 25 MCG TAB PO SCH (06:46)
[2019-01-31] MEDS: ARTIFICIAL TEARS 15ml EACHEYE PRN ×2 (06:48→15:41)
[2019-01-31] MEDS: LORazepam 0.5 MG TAB PO PRN ×2 (08:25→15:47)
[2019-01-31 08:30] VITALS: BP 131/70
[2019-01-31] MEDS: cefTRIAXone 1GM/50ML D5W 50 ML IV SCH (09:33)
[2019-01-31] MEDS: AMIODARONE HCL 200 MG TAB PO SCH (09:34)
[2019-01-31] MEDS: KETOROLAC TROMETH 30 MG/ML 1ML VIAL IV PRN ×2 (09:34→15:41)
[2019-01-31] MEDS: PREGABALIN 25 MG CAP PO SCH ×2 (09:34→21:57)
[2019-01-31] MEDS: METOPROLOL TARTRATE 25 MG TAB PO SCH ×2 (09:35→21:56)
[2019-01-31] MEDS: LISINOPRIL 20 MG TAB PO SCH (09:35)
--- NOTE | 2019-01-31 12:34 | NUR ---
Nutrition Follow-up Notes Wt.: 64.3 kg as of yesterday. Pt's in isolation room, asleep, no immediate family member at bedside during rounds earlier. Pr's no signs of distress noted earlier, currently on 2 gms Na diet with Ensure High Prot 1 carton QID, has inadequate PO intake aeb <60% ave. consumed meals (x5) in last 2.5 days d/t pt refused, per nursing. Est. Needs: 1900 kcal to 2200 kcal (30-35 kcal/kgBW), 63 gms to 75 gms pro (1.0-1.2 gms/kgBW). Will continue to monitor pertinent labs and reassess nutrient need prn Labs: No new labs since 01/28/19 pertinent labs wnl except fo BUN 38 H Skin: [place] scale 19, low risk, skin intact per registered respiratory technician. GI: Pt had 1 BM yesterday per registered respiratory technician. PES: Altered nutrition related lab values r/t current/chronic medical condition aeb elev. BUN and mild hypoalbuminemia Will continue to monitor PO intake, skin status, pertinent labs and weight trend. F/u in 3 to 5 days. Rec.: 1.) Continue close supervision and feeding assistance prn during meals. 2.) If pt's PO intake remains inadequate (<50%), consider appetite stimulant prn if medically appropriate. 3.) Refer pt to CDE/RD for further nutrition education and weight monitoring upon discharge. 4.) Continue current plan of care.
[2019-01-31 12:45] VITALS: BP 102/67
[2019-01-31 16:04] VITALS: BP 102/67
[2019-01-31 17:10] VITALS: BP 115/70
--- NOTE | 2019-01-31 17:20 | NUR ---
Spoke with Kalpana and asked about patient's allergy regarding gentamicin, per pt had S/E of hearing loss and kidney failure when had Gentamicin. Pharmacist Whitney made aware.
[2019-01-31 17:33] LABS: Basophils # (auto) 0.1 uL; Basophils % (auto) 0.5 % (0.0-2.0); Eosinophils # (auto) 0.5 uL; Eosinophils % (auto) 3.4 % (0.0-7.0); Hemoglobin 11.3 g/dL (13.5-17.5); Lymphocytes # (auto) 0.9 uL; Lymphocytes % (auto) 6.2 % (10.0-50.0); Mean Corpuscular Hemoglobin 29.9 pg (28.0-32.0); Mean Corpuscular Hgb Conc. 32.4 g/dL (32.0-36.0); Mean Corpuscular Volume 92.4 fL (80.0-100.0); Monocytes # (auto) 1.2 uL; Monocytes % (auto) 8.4 % (0.0-12.0); Neutrophils % (auto) 81.5 % (37.0-80.0); Platelet Count (auto) 401 10^3/uL (140-450); Red Blood Cells 3.78 10^6/uL (4.5-5.90); Red Cell Distribution Width 13.2 % (11.8-14.3); White Blood Cell 14.7 10^3/uL (4.4-10.8)
[2019-01-31 17:38] LABS: Chloride 100 mmol/L (98-107); Potassium 4.4 mmol/L (3.5-5.1); Sodium 130 mmol/L (136-145)
[2019-01-31 17:42] LABS: Albumin 2.5 g/dL (3.4-5.0); Anion Gap 7 (5-15); Blood Urea Nitrogen 24 mg/dL (7-18); Calcium 8.8 mg/dL (8.5-10.1); Carbon Dioxide 23 mmol/L (21-32); Glucose 98 mg/dL (74-106)
[2019-01-31 17:45] LABS: Alanine Aminotransferase 64 U/L (16-61); Aspartate Aminotransferase 30 U/L (15-37); GFR African American 103 mL/min; GFR Non-African American 86 mL/min
[2019-01-31 17:48] LABS: Alkaline Phosphatase 298 U/L (45-117); Bilirubin, Total 0.5 mg/dL (0.2-1.0); Total Protein 8.1 g/dL (6.4-8.2)
[2019-01-31] MEDS: TOBRAMYCIN SULF 0.3% OPTH(EYE) SOLN 5ML EACHEYE SCH ×2 (18:13→21:55)
--- NOTE | 2019-01-31 18:22 | NUR ---
Respiratory note: ASSESSMENT FOR PRN MED NEB TX, PT PRESENTING NO RESPIRATORY DISTRESS AT THIS TIME. HR 67, SPO2 97% ON ROOM AIR, RR 17, BS CLEAR/DIMINISHED. PT AWARE TO HAVE RN PAGE RT FOR MED NEB TX IF NEEDED, WILL CONTINUE TO MONITOR.
--- NOTE | 2019-01-31 19:30 | NUR ---
OPENING SHIFT NOTE ASSUMED CARE, LAYING ON BED WITH NO SIGNS OF DISTRESS, STILL WITH PERIORBITAL EDEMA AND REDNESS OF BOTH EYES, ON ROOM AIR, SPO2 91%, MIDLINE TO THE LEFT UPPER ARM PATENT AND INTACT. BED IN LOWEST POSITION WITH SIDE RAILS UP, BED ALARM ON AND CALL LIGHT WITHIN REACH. WILL CONTINUE CARE.
--- NOTE | 2019-01-31 19:30 | NUR ---
Patient care and report handed off to Ashley LOCK.
[2019-01-31] MEDS: ATORVASTATIN 20 MG TAB PO SCH (21:56)
[2019-01-31] MEDS: ZOLPIDEM TARTRATE 5 MG TAB PO SCH (21:56)
[2019-01-31 21:58] VITALS: BP 122/65
[2019-01-31] MEDS: HYDROcodone-ACET 10/325MG TAB PO PRN (21:58)
--- NOTE | 2019-02-01 00:10 | NUR ---
AMBULATED TO THE RESTROOM WITH MINIMAL ASSIST, NO BM NOTED.
[2019-02-01] MEDS: KETOROLAC TROMETH 30 MG/ML 1ML VIAL IV PRN ×2 (00:21→12:59)
[2019-02-01] MEDS: TOBRAMYCIN SULF 0.3% OPTH(EYE) SOLN 5ML EACHEYE SCH ×6 (02:46→22:00)
[2019-02-01] MEDS: LORazepam 0.5 MG TAB PO PRN ×2 (02:48→18:23)
[2019-02-01 04:34] VITALS: BP 111/67
[2019-02-01] MEDS: Ensure HIGH Protein Chocolate 8oz Bottle PO SCH ×4 (06:00→22:00)
[2019-02-01] MEDS: LEVOTHYROXINE SODIUM 100 MCG TAB PO SCH (06:18)
[2019-02-01] MEDS: LEVOTHYROXINE SODIUM 25 MCG TAB PO SCH (06:19)
--- NOTE | 2019-02-01 08:00 | NUR ---
Patient asleep, no acute distress noted. Bed alarm on.
[2019-02-01 09:08] VITALS: BP 103/54
--- NOTE | 2019-02-01 09:30 | NUR ---
Called the Pharmacy that Lyrica is counted at 10, counted again at 10. Discrepancy as per Pyxis. Pulled out 1. Charge Nurse Missael made aware.
[2019-02-01] MEDS: cefTRIAXone 1GM/50ML D5W 50 ML IV SCH (09:38)
[2019-02-01] MEDS: PREGABALIN 25 MG CAP PO SCH ×2 (09:38→20:31)
[2019-02-01] MEDS: METOPROLOL TARTRATE 25 MG TAB PO SCH ×2 (09:39→22:00)
[2019-02-01] MEDS: LISINOPRIL 20 MG TAB PO SCH (09:40)
[2019-02-01] MEDS: HYDROcodone-ACET 10/325MG TAB PO PRN (09:40)
--- NOTE | 2019-02-01 09:40 | NUR ---
Patient stated he has headache. Jaroso 10/325 PO given for pain as ordered. .
[2019-02-01] MEDS: AMIODARONE HCL 200 MG TAB PO SCH (09:43)
--- NOTE | 2019-02-01 10:34 | NUR ---
RT NOTE: PT DECLINED NEED FOR TX AT THIS TIME. NO SIGNS OF RESPIRATORY DISTRESS. LUNG SOUNDS CLEAR T/O. ON RA SPO2 97 HR 61 RR 12. PT AWARE THAT HE CAN CALL FOR TX IF NEED ARISES. WILL CONTINUE TO MONITOR.
[2019-02-01 12:39] VITALS: BP 114/65
--- NOTE | 2019-02-01 12:59 | NUR ---
Ketorolac IVP given for pain as ordered.
--- NOTE | 2019-02-01 15:50 | NUR ---
Patient on physical therapy, walking on the hallway using walker, assisted by the physical therapist.
[2019-02-01 16:51] VITALS: BP 117/67
[2019-02-01] MEDS: ARTIFICIAL TEARS 15ml EACHEYE PRN (18:27)
--- NOTE | 2019-02-01 19:10 | NUR ---
PT ASSESSED FOR PRN BREATHING TX. TX IS NOT INDICATED AT THIS TIME. NO ACUTE DISTRESS NOTED. HR 67 RR 20 96% ON ROOM AIR. B/S ARE CLEAR THROUGHOUT. PT AWARE TO PAGE IF TX IS NEEDED.
[2019-02-01 20:00] VITALS: BP 103/54
[2019-02-01] MEDS: ZOLPIDEM TARTRATE 5 MG TAB PO SCH (20:31)
[2019-02-01] MEDS: ATORVASTATIN 20 MG TAB PO SCH (20:32)
[2019-02-01 23:00] VITALS: BP 123/61
[2019-02-02] MEDS: KETOROLAC TROMETH 30 MG/ML 1ML VIAL IV PRN ×4 (00:20→22:45)
[2019-02-02] MEDS: TOBRAMYCIN SULF 0.3% OPTH(EYE) SOLN 5ML EACHEYE SCH ×6 (02:00→21:39)
[2019-02-02 04:57] VITALS: BP 112/56
[2019-02-02] MEDS: LEVOTHYROXINE SODIUM 100 MCG TAB PO SCH (06:12)
[2019-02-02] MEDS: Ensure HIGH Protein Chocolate 8oz Bottle PO SCH ×4 (06:12→21:40)
[2019-02-02] MEDS: LEVOTHYROXINE SODIUM 25 MCG TAB PO SCH (06:13)
--- NOTE | 2019-02-02 06:14 | NUR ---
PT STATES HE KEEPS HIS EYE DROPS IN THE TOP DRAWER OF HIS HOSPITAL DRESSER;BUT A SEARCH REVEALS NOTHING. EYE DROPS ARE NOT IN PT'S CASSETTE;WILL NOTIFY PHARMACY .
[2019-02-02] MEDS: LORazepam 0.5 MG TAB PO PRN ×3 (06:28→22:10)
--- NOTE | 2019-02-02 07:35 | NUR ---
Patient in bed, asleep at this time. No acute distress noted.
--- NOTE | 2019-02-02 08:30 | NUR ---
Patient sitting on bed, breakfast at bedside table.
[2019-02-02 09:00] VITALS: BP 102/60
--- NOTE | 2019-02-02 10:27 | NUR ---
Patient stated he's in pain, at 8/10 at this time. Toradol IVP given for pain as ordered.
[2019-02-02] MEDS: PREGABALIN 25 MG CAP PO SCH ×2 (10:30→21:31)
[2019-02-02] MEDS: AMIODARONE HCL 200 MG TAB PO SCH (10:30)
[2019-02-02] MEDS: LISINOPRIL 20 MG TAB PO SCH (10:32)
[2019-02-02] MEDS: METOPROLOL TARTRATE 25 MG TAB PO SCH ×2 (10:32→21:35)
--- NOTE | 2019-02-02 10:58 | NUR ---
Respiratory note: ASSESSED PATIENT FOR PRN BREATHING TX. PATIENT IS AWAKE AND ALERT, NO RESPIRATORY DISTRESS IS NOTED AT THIS TIME. PATIENT IS ON ROOM AIR, SP02 95%, HR 69, RR 18, AND BREATH SOUNDS ARE CLEAR. PATIENT UNDERSTANDS TO HAVE RT PAGED IF BREATHING TX IS NEEDED. WILL CONTINUE TO MONITOR PATIENT.
--- NOTE | 2019-02-02 11:06 | NUR ---
Dr. Dodson came over. made aware patient still complained of eye pain (patient has conjunctivitis both eyes). Dr. Dodson said he put in orders for blood culture.
[2019-02-02 11:17] LABS: Basophils # (auto) 0.1 uL; Basophils % (auto) 0.4 % (0.0-2.0); Eosinophils # (auto) 0.4 uL; Eosinophils % (auto) 3.2 % (0.0-7.0); Hematocrit 31.7 % (41.0-53.0); Hemoglobin 10.6 g/dL (13.5-17.5); Lymphocytes # (auto) 0.6 uL; Lymphocytes % (auto) 4.6 % (10.0-50.0); Mean Corpuscular Hemoglobin 30.1 pg (28.0-32.0); Mean Corpuscular Hgb Conc. 33.4 g/dL (32.0-36.0); Mean Corpuscular Volume 90.1 fL (80.0-100.0); Monocytes % (auto) 7.6 % (0.0-12.0); Neutrophils # (auto) 11.2 uL; Neutrophils % (auto) 84.2 % (37.0-80.0); Nucleated Red Blood Cells % 0.1 %; Platelet Count (auto) 372 10^3/uL (140-450); Red Blood Cells 3.51 10^6/uL (4.5-5.90); Red Cell Distribution Width 13.4 % (11.8-14.3); White Blood Cell 13.3 10^3/uL (4.4-10.8)
[2019-02-02 11:38] LABS: Albumin 2.4 g/dL (3.4-5.0); Calcium 8.6 mg/dL (8.5-10.1); Potassium 4.1 mmol/L (3.5-5.1)
[2019-02-02 11:43] LABS: BUN/Creatinine Ratio 27.4; Bilirubin, Total 0.5 mg/dL (0.2-1.0); Total Protein 7.6 g/dL (6.4-8.2)
[2019-02-02 12:58] VITALS: BP 118/71
--- NOTE | 2019-02-02 15:20 | NUR ---
Patient asleep at this time. No acute distress noted.
--- NOTE | 2019-02-02 16:00 | NUR ---
Ativan PO given for anxiety as ordered.
[2019-02-02] MEDS: ARTIFICIAL TEARS 15ml EACHEYE PRN (16:02)
--- NOTE | 2019-02-02 16:02 | NUR ---
Tears Naturale eye drops administered as ordered.
--- NOTE | 2019-02-02 16:46 | NUR ---
Patient stated he's in pain, at 8/10 at this time. Toradol IVP given for pain as ordered.
[2019-02-02 16:59] VITALS: BP 101/65
--- NOTE | 2019-02-02 19:25 | NUR ---
Opening Shift Note Assumed care of patient from day shift HAYDE Dejesus. Patient is A/O X4 with even and unlabored respirations. No S/S of distress/SOB or pain at this time. He uses a hearing amplifier and prefers writing paper to assist with hearing. Bed is in lowest position, locked, and call light is in reach. Patient instructed on POC and to call for assist PRN, will continue to monitor for changes Q1hr and PRN.
--- NOTE | 2019-02-02 19:29 | NUR ---
Respiratory note: ASSESSED PT FOR PRN MED NEB AT THIS TIME, PT DENIES SOB AT THIS TIME, NO RESP DISTRESS NOTED, NO TX INDICATED, PULSE OX 95% ON RA, HR 75, RR 20, BILATERAL BS CLEAR.
[2019-02-02] MEDS: ATORVASTATIN 20 MG TAB PO SCH (21:31)
[2019-02-02] MEDS: ZOLPIDEM TARTRATE 5 MG TAB PO SCH (21:31)
[2019-02-02 21:44] VITALS: BP 105/64
--- NOTE | 2019-02-02 22:00 | NUR ---
Ensure Ensure is at administered. Patient placed at bedside and states that he will drink it later.
--- NOTE | 2019-02-03 | NUR ---
Telemetry Reading SR with a 1st degree heart block. 61 bpm
[2019-02-03] MEDS: TOBRAMYCIN SULF 0.3% OPTH(EYE) SOLN 5ML EACHEYE SCH ×6 (02:14→21:22)
--- NOTE | 2019-02-03 04:05 | NUR ---
Telemetry Reading SR with a 1st degree heart block. 62 bpm
[2019-02-03 04:32] VITALS: BP 110/65
[2019-02-03] MEDS: KETOROLAC TROMETH 30 MG/ML 1ML VIAL IV PRN ×3 (05:21→20:23)
[2019-02-03] MEDS: Ensure HIGH Protein Chocolate 8oz Bottle PO SCH ×4 (05:25→21:22)
--- NOTE | 2019-02-03 05:25 | NUR ---
ENSURE PATIENT REFUSED 0600 ENSURE. 2200 ENSURE STILL AT BEDSIDE. PATIENT STATES THAT HE DOES NOT WANT IT RIGHT NOW BUT MAY DRINK IT LATER.
[2019-02-03] MEDS: LEVOTHYROXINE SODIUM 100 MCG TAB PO SCH (06:28)
[2019-02-03] MEDS: LEVOTHYROXINE SODIUM 25 MCG TAB PO SCH (06:28)
--- NOTE | 2019-02-03 07:25 | NUR ---
CLOSING NOTE CARE TRANSFERRED TO DAY SHIFT HAYDE NOLAN
--- NOTE | 2019-02-03 07:30 | NUR ---
Patient in bed, asleep. No acute distress noted.
[2019-02-03 08:00] VITALS: BP 108/51
[2019-02-03 09:18] VITALS: BP 110/65
[2019-02-03] MEDS: LORazepam 0.5 MG TAB PO PRN ×2 (09:37→18:30)
--- NOTE | 2019-02-03 09:37 | NUR ---
Patient is anxious, asked for Ativan. Ativan PO given for anxiety as ordered.
[2019-02-03] MEDS: LISINOPRIL 20 MG TAB PO SCH (09:38)
[2019-02-03] MEDS: AMIODARONE HCL 200 MG TAB PO SCH (09:38)
[2019-02-03] MEDS: PREGABALIN 25 MG CAP PO SCH ×2 (09:38→21:20)
[2019-02-03] MEDS: METOPROLOL TARTRATE 25 MG TAB PO SCH ×2 (09:39→21:21)
--- NOTE | 2019-02-03 09:40 | NUR ---
Patient stated he feels the pain is going back. Explained to patient the Toradol IVP is not yet due at this time. Patient verbalized understanding.
--- NOTE | 2019-02-03 10:08 | NUR ---
Respiratory note: ASSESSED PT FOR PRN TX PT WAS ASLEEP, NO RESP DISTRESS NOTED. HR 70, RR 16, SPO2 98% ON ROOM AIR. BS ARE CLEAR, NO INDICATION FOR TX AT THIS TIME. PT KNOWS TO HAVE RT PAGED IF TX IS NEEDED.
--- NOTE | 2019-02-03 11:29 | NUR ---
Patient stated he's in pain. Toradol IVP given for pain as ordered.
[2019-02-03] MEDS: ARTIFICIAL TEARS 15ml EACHEYE PRN (11:32)
--- NOTE | 2019-02-03 11:32 | NUR ---
Tears Naturale for dry eyes administered as ordered.
[2019-02-03 11:51] LABS: Basophils # (auto) 0 uL; Basophils % (auto) 0.4 % (0.0-2.0); Eosinophils # (auto) 0.6 uL; Eosinophils % (auto) 4.1 % (0.0-7.0); Hematocrit 31.5 % (41.0-53.0); Hemoglobin 10.5 g/dL (13.5-17.5); Lymphocytes # (auto) 0.6 uL; Lymphocytes % (auto) 4.8 % (10.0-50.0); Mean Corpuscular Hemoglobin 30.2 pg (28.0-32.0); Mean Corpuscular Hgb Conc. 33.2 g/dL (32.0-36.0); Mean Corpuscular Volume 90.8 fL (80.0-100.0); Monocytes # (auto) 1.1 uL; Monocytes % (auto) 7.9 % (0.0-12.0); Neutrophils % (auto) 82.8 % (37.0-80.0); Platelet Count (auto) 398 10^3/uL (140-450); Red Blood Cells 3.47 10^6/uL (4.5-5.90); Red Cell Distribution Width 13.4 % (11.8-14.3); White Blood Cell 13.3 10^3/uL (4.4-10.8)
[2019-02-03 12:00] VITALS: BP 120/66
[2019-02-03 16:00] VITALS: BP 108/67
--- NOTE | 2019-02-03 20:30 | NUR ---
ENSURE & DINNER PATIENTS 1800 ENSURE AND DINNER IS STILL AT BEDSIDE UNTOUCHED. PATIENT STATES THAT HE IS IN TOO MUCH PAIN TO EAT. PAIN MEDICATION ADMINISTERED AND ICE APPLIED TO EYES. PATIENT REMOVED ICE STATES IT DOES NOT HELP.
--- NOTE | 2019-02-03 21:00 | NUR ---
Respiratory note: PT ASSESSED FOR PRN MED NEB TX. HR 96, RR 16, SPO2 95% ON R/A, BS CLEAR T/O. NO SIGNS PF ANY RESPIRATORY DISTRESS NOTED. ADVISED PT TO PLEASE CALL IF TX IS NEEDED.
[2019-02-03] MEDS: ATORVASTATIN 20 MG TAB PO SCH (21:20)
[2019-02-03] MEDS: ZOLPIDEM TARTRATE 5 MG TAB PO SCH (21:20)
[2019-02-03 22:00] VITALS: BP 114/65
[2019-02-04] MEDS: TOBRAMYCIN SULF 0.3% OPTH(EYE) SOLN 5ML EACHEYE SCH ×4 (02:00→15:26)
[2019-02-04] MEDS: KETOROLAC TROMETH 30 MG/ML 1ML VIAL IV PRN ×3 (02:34→17:27)
[2019-02-04 04:56] VITALS: BP 90/50
--- NOTE | 2019-02-04 05:22 | NUR ---
Respiratory note: PT NOT IN NEED OF MED NEB AT THIS TIME. PT IN NO DISTRESS. PT ADVISED TO NOTIFY RN IF SOB OCCURS. HEART RATE-65, RESP RATE-16, BS CLEAR TO DIM BILATERALLY.
[2019-02-04] MEDS: Ensure HIGH Protein Chocolate 8oz Bottle PO SCH ×4 (06:00→20:55)
[2019-02-04] MEDS: LEVOTHYROXINE SODIUM 25 MCG TAB PO SCH (06:33)
[2019-02-04] MEDS: LEVOTHYROXINE SODIUM 100 MCG TAB PO SCH (06:33)
--- NOTE | 2019-02-04 07:08 | NUR ---
CLOSING NOTE PATIENT IN NO DISTRESS. CARE TRANSFERRED TO DAY SHIFT HAYDE CANTU
--- NOTE | 2019-02-04 07:30 | NUR ---
Morning note patient resting in bed with eyes closed, respirations even and unlabored. Bed in low locked position with x2 side rails up. Call light within reach. Will continue to monitor q1hr & PRN.
[2019-02-04 08:00] VITALS: BP 120/72
[2019-02-04] MEDS: AMIODARONE HCL 200 MG TAB PO SCH (09:02)
[2019-02-04] MEDS: METOPROLOL TARTRATE 25 MG TAB PO SCH ×2 (09:02→20:41)
[2019-02-04] MEDS: LORazepam 0.5 MG TAB PO PRN ×3 (09:02→22:25)
[2019-02-04] MEDS: PREGABALIN 25 MG CAP PO SCH ×2 (09:02→20:41)
[2019-02-04] MEDS: LISINOPRIL 20 MG TAB PO SCH (09:03)
--- NOTE | 2019-02-04 10:45 | NUR ---
Patient's spouse at bedside updated on POC.
[2019-02-04 12:00] VITALS: BP 118/74
--- NOTE | 2019-02-04 14:02 | NUR ---
Patient requesting Ativan patient states "I feel like I'm withdrawing and that happens after 6 hours." Informed patient that the medication cannot be administered at this time due to MD's orders. Patient verbalized understanding. Informed patient of next available dose per MD's orders. Patient verbalized understanding.
--- NOTE | 2019-02-04 14:45 | NUR ---
RE: patient requesting to speak with MD Notified Dr. Dodson that patient is requesting to speak with him regarding the status of vision and POC. Will continue to monitor q1hr & PRN.
--- NOTE | 2019-02-04 15:28 | NUR ---
MD was at bedside - Dr. West LEIGH spoke with the patient and this RN. Orders received and read back to verify. Patient's concerns and questions addressed. Will continue to monitor q1hr & PRN.
--- NOTE | 2019-02-04 15:29 | NUR ---
RE: eye assessment Patient's left and right eye are noted to be puffy, right greater than the left. Left and right sclera is red. Patient has a constant clear drainage noted from both eyes. Patient states "my eyes were more watery the other day. Today they are still watery but not as bad." No foul odor or discolored drainage noted at this time. Patient rates the pain a 7/10 that is constant. Patient states "the other days I couldn't even open my eyes. The light made it worst. Today I can open my eyes at least but my vision in my right eye is blurry and really hard to see out of." Patient medicated per MD's orders. Dr. Dodson aware of patient's left and right eye status. Patient instructed again on fall precautions due to high fall risk. Patient verbalized understanding. Instructed patient to notify staff using the call light any time patient needs to exit the hospital bed. Patient verbalized understanding. Call light within reach. Bed in low locked position with x2 side rails up. Will continue to monitor q1hr & PRN.
[2019-02-04] MEDS ORDERED: IOHEXOL 300 MG/ML 100ML BOTTLE IJ ONE (15:54)
--- NOTE | 2019-02-04 16:10 | NUR ---
Patient off unit to radiology via wheelchair. No distress noted.
[2019-02-04 17:00] VITALS: BP 123/75
--- NOTE | 2019-02-04 18:45 | NUR ---
End of shift patient resting in bed with even and unlabored respirations, no distress noted. Bed in low locked position with x2 side rails, call light within reach.
[2019-02-04 20:20] VITALS: BP 104/71
[2019-02-04] MEDS: ZOLPIDEM TARTRATE 5 MG TAB PO SCH (20:40)
[2019-02-04] MEDS: ATORVASTATIN 20 MG TAB PO SCH (20:41)
[2019-02-04] MEDS: NEOMYCIN-POLYMY-DEXAMETH 0.1% OPTH(EYE) SUSP 5ML EACHEYE SCH (20:41)
--- NOTE | 2019-02-04 21:12 | NUR ---
NOTIFIED DR VERDE, THAT PATIENT DOESN'T HAVE ANY PAIN MEDICATIONS ORDER. TELEPHONE ORDER FROM DR. VERDE TO REORDER TORADOL 30MG IV Q6HRS PRN. ORDER PLACED.
--- NOTE | 2019-02-04 21:13 | NUR ---
MIDLINE DRESSING CHANGED USING ASEPTIC TECHNIQUE.
[2019-02-04] MEDS ORDERED: KETOROLAC TROMETH 30 MG/ML 1ML VIAL IV PRN (21:15)
--- NOTE | 2019-02-04 22:31 | NUR ---
PER PHARMACY PATIENT CANNOT HAVE ANYMORE TORADOL IV SINCE HE'S HAD IT FOR 5 DAYS. DISCONTINUED TORADOL AND TRAMADOL 100MG PO Q6H PRN PLACED PER TEL. ORDER BY DR. VERDE.
--- NOTE | 2019-02-04 22:35 | NUR ---
PT SEEN AND ASSESSED FOR PRN MED NEB TX AT 2235. TX NOT INDICATED AT THIS TIME. PT IS NOT DISPLAYING ANY SIGNS OF DISTRESS. PT WAS SLEEPING WHEN ENTERING THE ROOM. HR 63 RR 18 POX 96% ON ROOM AIR. BREATH SOUNDS WERE CLEAR AND DIMINISHED BILATERALLY. PT AWARE TO CALL FOR RT IF ANY DISTRESS OCCURS.
--- NOTE | 2019-02-04 22:50 | NUR ---
REPORT RECEIVED FROM KOBE LOCK, WILL ASSUME PT CARE.
[2019-02-05] MEDS: traMADol HCL 50 MG TAB PO PRN ×2 (01:14→08:22)
[2019-02-05 05:00] VITALS: BP 115/63
--- NOTE | 2019-02-05 05:22 | NUR ---
Respiratory note: PT NOT IN NEED OF MEDNEB AT THIS TIME. NO SOB OR DISTRESS. PT INFORMED TO NOTIFY NURSE IF SOB OCCURS. CLEAR BREATH SOUNDS BILATERALLY.
[2019-02-05] MEDS: Ensure HIGH Protein Chocolate 8oz Bottle PO SCH ×4 (05:36→21:42)
[2019-02-05] MEDS: LEVOTHYROXINE SODIUM 25 MCG TAB PO SCH (05:50)
[2019-02-05] MEDS: LEVOTHYROXINE SODIUM 100 MCG TAB PO SCH (05:50)
[2019-02-05] MEDS: PREGABALIN 25 MG CAP PO SCH ×2 (08:13→21:43)
[2019-02-05] MEDS: AMIODARONE HCL 200 MG TAB PO SCH (08:13)
[2019-02-05] MEDS: LISINOPRIL 20 MG TAB PO SCH (08:13)
[2019-02-05] MEDS: NEOMYCIN-POLYMY-DEXAMETH 0.1% OPTH(EYE) SUSP 5ML EACHEYE SCH ×2 (08:13→21:42)
[2019-02-05] MEDS: METOPROLOL TARTRATE 25 MG TAB PO SCH ×2 (08:14→21:43)
[2019-02-05 09:00] VITALS: BP 110/61
[2019-02-05] MEDS: LORazepam 0.5 MG TAB PO PRN ×3 (09:41→21:46)
--- NOTE | 2019-02-05 09:42 | NUR ---
Patient refusing breakfast meal at this time patient states "I'm probably not going to eat it right now. I feel like crap right now." Will continue to monitor q1hr & PRN.
--- NOTE | 2019-02-05 11:18 | NUR ---
Patient refusing physical therapy This RN notified by German, geophysical observer, that patient is refusing physical therapy at this time because he is not feeling well at this time.
--- NOTE | 2019-02-05 11:31 | NUR ---
RE: Pain management Informed Dr. Dodson that patient is reporting pain medication is not adequately managing his pain. Will wait for orders.
--- NOTE | 2019-02-05 11:59 | NUR ---
Patient resting in bed with even and unlabored respirations no distress noted. Fall precautions in place, bed in low locked position with x2 side rails up. Call light within reach. Will continue to monitor q1hr & PRN.
[2019-02-05 12:48] VITALS: BP 119/69
--- NOTE | 2019-02-05 13:01 | NUR ---
PT 1st AM visit, patient requested from this PTT to comeback after an hour. 2nd AM visit, patient refused to be OOB with c/o not feeling well and his eyes are hurting. Addendum: 02/05/19 at 1302 by INES WAYNE PTT Amended: Links added.
--- NOTE | 2019-02-05 14:29 | NUR ---
Nutrition Follow-up Notes Wt.: 64.3 kg as of yesterday. Pt's in isolation room, asleep, no signs of distress noted earlier, currently on 2 gms Na diet with Ensure High Prot 1 carton QID, has inadequate PO intake aeb <50% ave. consumed meals (x5) in last 2.5 days d/t pt refused, per nursing. Est. Needs: 1900 kcal to 2200 kcal (30-35 kcal/kgBW), 63 gms to 75 gms pro (1.0-1.2 gms/kgBW). Will continue to monitor pertinent labs and reassess nutrient need prn Labs: No new labs since 02/02/19 Na 134 L, BUN 20 H, ALP 275 H, Alb 2.4 L Skin: [place] scale 18, mod risk, skin intact per documentation spec. GI: Pt had 1 BM yesterday per documentation spec. PES: Altered nutrition related lab values r/t current/chronic medical condition aeb elev. BUN and mild hypoalbuminemia Will continue to monitor PO intake, skin status, pertinent labs and weight trend. F/u in 3 to 5 days. Rec.: 1.) Continue close supervision and feeding assistance prn during meals. 2.) Consider to continue monitoring pertinent labs;If Albumin level continues trending down, consider Prostat 1 pkt BID. 3.) If pt's PO intake remains inadequate (<50%), consider appetite stimulant prn if medically appropriate. 4.) Refer pt to RD for further nutrition education and weight monitoring upon discharge. 5.) Continue current plan of care.
--- NOTE | 2019-02-05 15:08 | NUR ---
Orders received - pain management Orders received and read back to verify.
--- NOTE | 2019-02-05 16:48 | NUR ---
MD was at bedside - Dr. West LIEGH to schedule patient an appointment with an workers compensation specialist. stated "I want the appointment to be STAT so that he goes straight from here to there."
[2019-02-05 17:23] VITALS: BP 119/72
--- NOTE | 2019-02-05 18:14 | NUR ---
RE: eye appointment Patient's called for a status update. Password obtained. Update given. Patient has a 1400 eye appointment that has been scheduled per the . Patient's stated "I got a message that an appointment had been scheduled for him."
[2019-02-05] MEDS: HYDROcodone-ACET 10/325MG TAB PO PRN (18:45)
--- NOTE | 2019-02-05 19:26 | NUR ---
Care endorsed to HAYDE Tyson.
--- NOTE | 2019-02-05 20:00 | NUR ---
RECEIVED PT IN BED, A/O X4, IN NO ACUTE DISTRESS, DENIES PAIN AT THIS TIME. BILATERAL CONJUNCTIVA APPEARS RED, EYES TEARY, EYE LIDS SWOLLEN. POC REVIEWED WITH PT, VERBALIZED UNDERSTANDING. CALL LIGHT WITHIN REACH, ENCOURAGED TO CALL IF HELP IS NEEDED, SIDE RAILS UP X2, BED IN LOWEST, LOCKED POSITION, NON SKID SOCKS ON. CONTINUE CARE.
--- NOTE | 2019-02-05 20:30 | NUR ---
IV insertion IV access obtained, via clean sterile technique by inserting 22 gauge catheter at L HAND after 1 attempt(s). IV secured properly. No trauma to site. Patient tolerated well. NOTE: IV removal IV DC'd with clean sterile technique, catheter fully intact. Pressure dressing applied to site. Patient tolerated well. NOTE:
[2019-02-05] MEDS: ZOLPIDEM TARTRATE 5 MG TAB PO SCH (21:42)
[2019-02-05] MEDS: ATORVASTATIN 20 MG TAB PO SCH (21:43)
[2019-02-05 22:00] VITALS: BP 121/62
--- NOTE | 2019-02-05 22:00 | NUR ---
pt assessed for prn tx. no resp distress noted. pt denies sob. tx not indicated at this time. pt is aware to page if tx needed. hr 60 rr 18 93% on room air. b/s clear but decreased
[2019-02-06] MEDS: HYDROcodone-ACET 10/325MG TAB PO PRN (02:50)
[2019-02-06 05:08] VITALS: BP 112/62
--- NOTE | 2019-02-06 05:58 | NUR ---
pt assessed for prn hhn tx. pt is on room air, spo2 94%, hr 57, rr 16. no s/s of respiratory distress. breathing tx not indicated at this time. will continue to monitor.
[2019-02-06] MEDS: LEVOTHYROXINE SODIUM 25 MCG TAB PO SCH (06:19)
[2019-02-06] MEDS: LEVOTHYROXINE SODIUM 100 MCG TAB PO SCH (06:19)
[2019-02-06] MEDS: Ensure HIGH Protein Chocolate 8oz Bottle PO SCH (06:19)
[2019-02-06] MEDS: LORazepam 0.5 MG TAB PO PRN ×2 (06:20→11:59)
--- NOTE | 2019-02-06 08:00 | NUR ---
Opening Shift Note Assumed care of patient, awake. Patient is deaf and communicates thru sign languages and thru writings. No S/S of distress/SOB or pain. Instructed on POC and to call for assist PRN, will continue to monitor for changes Q1hr and PRN.
[2019-02-06 08:33] VITALS: BP 112/62
[2019-02-06 09:00] VITALS: BP 106/68
[2019-02-06] MEDS: PREGABALIN 25 MG CAP PO SCH (09:43)
[2019-02-06] MEDS: NEOMYCIN-POLYMY-DEXAMETH 0.1% OPTH(EYE) SUSP 5ML EACHEYE SCH (09:43)
[2019-02-06] MEDS: AMIODARONE HCL 200 MG TAB PO SCH (09:44)
[2019-02-06] MEDS: LISINOPRIL 20 MG TAB PO SCH (09:44)
[2019-02-06] MEDS: METOPROLOL TARTRATE 25 MG TAB PO SCH (09:45)
--- NOTE | 2019-02-06 10:46 | NUR ---
PAGED DR. VERDE REGARDING POSSIBLE DISCHARGE PLANNING TODAY. WAITING FOR CALL BACK.
--- NOTE | 2019-02-06 11:11 | NUR ---
Dr. Dodson returned call, orders received. Patient is for discharge today. To follow up with his office in 1-2 weeks and follow up with Opthalmologist Dr. Velasquez today at 2:00pm.
[2019-02-06 11:29] VITALS: BP 105/69
--- NOTE | 2019-02-06 12:45 | NUR ---
Discharge instructions given as ordered. Encourage to follow up with PMD Dr. Dodson on 02/18/19 at 10:50am as instructed. For follow up with Opthalmologist Guy Dean today at 02/06/19 at 2:00pm #[phone] located at [address] [place] [address]. All questions and concerns addressed. Patient verbalized understanding. Medication reconciliation form completed and copy given to patient. IV removed with catheter intact, pressure dressing applied. Telemetry unit returned to [facility]. Patient taken to vehicle via wheelchair with all personal belongings, accompanied by staff and family member. No distress noted at time of departure.
[2019-02-06 13:00] VITALS: BP 124/71
== END 2019-02-06 12:45 | disposition home or self-care (01) | DRG 603 ==
LOC: EDBD 10:01 → ER 10:06 → TELE 17:13 → TELE-CENTR 19:41
PROVIDERS: ADMIT Internal Medicine Cardiovascular Disease; ATTEND Internal Medicine Cardiovascular Disease
DX: L03.213 Periorbital cellulitis (principal); E44.0 Moderate protein-calorie malnutrition; I10 Essential (primary) hypertension; E89.0 Postprocedural hypothyroidism; H05.20 Unspecified exophthalmos; Z96.643 Presence of artificial hip joint, bilateral; F32.9 Major depressive disorder, single episode, unspecified; I67.2 Cerebral atherosclerosis; J44.9 Chronic obstructive pulmonary disease, unspecified; Z86.73 Personal history of transient ischemic attack (TIA), and cerebral infarction without residual deficits; Z86.79 Personal history of other diseases of the circulatory system; Z87.11 Personal history of peptic ulcer disease; Z95.1 Presence of aortocoronary bypass graft; Z79.899 Other long term (current) drug therapy; Z90.49 Acquired absence of other specified parts of digestive tract; Z86.14 Personal history of Methicillin resistant Staphylococcus aureus infection
CPT/HCPCS: 36415; 70450; 70470; 70482; 71045; 80048; 80053; 82140; 84439; 84443; 84484; 85025; 85610; 85652; 85730; 87040; 87081; 93005; 93306; 94640; 94761; 96365; 96367; 96375; A6257; G0378; J0696; J1885; J2405; J3490

== ENCOUNTER → 2019-04-12 | Outpatient (CLI) | payer BC, MEDICARE ==
[2019-04-12 11:45] LABS: Urine Blood Negative /uL (Negative); Urine Specific Gravity 1.016 (1.001-1.035)
[2019-04-12 11:48] LABS: Hemoglobin 13.5 g/dL (13.5-17.5); Mean Corpuscular Hemoglobin 30.7 pg (28.0-32.0); Platelet Count (auto) 209 10^3/uL (140-450); Red Cell Distribution Width 16.8 % (11.8-14.3); White Blood Cell 8.2 10^3/uL (4.4-10.8)
[2019-04-12 11:58] LABS: Free T4 (Free Thyroxine) 2.57 ng/dL (0.89-1.76); Prostate Specific Antigen 0.62 ng/mL (0.0-4.0)
[2019-04-12 12:06] LABS: Albumin 3.6 g/dL (3.4-5.0); Bilirubin, Total 0.5 mg/dL (0.2-1.0); Calcium 9.4 mg/dL (8.5-10.1); Total Protein 7.3 g/dL (6.4-8.2)
[2019-04-12 12:13] LABS: Band Neutrophils % (manual) 0; Basophils % (manual) 0 (0.0-2.0); Blast Cells 0; Metamyelocytes % 0; Myelocytes % 0; Promyelocytes % 0; Reactive Lymphocytes 0
[2019-04-12 16:19] LABS: Eosinophils % (manual) 3 (0-7); Lymphocytes % (manual) 16 (10.0-50.0); Monocytes % (manual) 3 (0-12)
== END | disposition home or self-care (01) ==
LOC: Rad HDHVI 07:56
PROVIDERS: ATTEND Internal Medicine Cardiovascular Disease
DX: Z00.00 Encounter for general adult medical examination without abnormal findings (principal); E03.9 Hypothyroidism, unspecified; E55.9 Vitamin D deficiency, unspecified; C61 Malignant neoplasm of prostate; E29.1 Testicular hypofunction; D51.9 Vitamin B12 deficiency anemia, unspecified; N39.0 Urinary tract infection, site not specified; I11.0 Hypertensive heart disease with heart failure; I50.23 Acute on chronic systolic (congestive) heart failure; R42 Dizziness and giddiness; Z79.899 Other long term (current) drug therapy
CPT/HCPCS: 36415; 80053; 80061; 81003; 82306; 82607; 83036; 84153; 84403; 84439; 84443; 85007; 85027; 93306

== ENCOUNTER → 2019-11-20 | Outpatient (CLI) | payer BC, MEDICARE ==
[~2019-11-20] MED LIST changes: +ASPI-404 PO; -ASPI81TA27 PO
== END | disposition home or self-care (01) ==
LOC: Rad HDHVI 08:14
PROVIDERS: ATTEND Internal Medicine Cardiovascular Disease
DX: I67.2 Cerebral atherosclerosis (principal); G31.9 Degenerative disease of nervous system, unspecified; I67.82 Cerebral ischemia; M87.9 Osteonecrosis, unspecified; I50.9 Heart failure, unspecified; S09.90XA Unspecified injury of head, initial encounter; W19.XXXA Unspecified fall, initial encounter; Y93.89 Activity, other specified; Y92.89 Other specified places as the place of occurrence of the external cause; Y99.8 Other external cause status
CPT/HCPCS: 70450

== ENCOUNTER 2020-06-05 19:12 | Emergency (ER) | payer BC, MEDICARE ==
[~2020-06-05] VITALS: Ht 182.9 cm; Wt 74.8 kg
[~2020-06-05 19:12] MED LIST changes: -ASPI-404 PO; +ASPI-543 PO; -FAM20T PO; +FAMO20TA10 PO; -LISI40TA; +LISI40TA11; -LORA2TAB10 PO; +LORA2TAB12 PO
[2020-06-06] MEDS ORDERED: SODIUM CHLORIDE 0.9% 2,000 ML IV ONE (00:45)
[2020-06-06] MEDS ORDERED: MVI in SODIUM CHLORIDE 0.9% 1,010 ML ONE (01:35)
[2020-06-06] MEDS ORDERED: THIAMINE 100mg/ml INJ (200mg/2ml VIAL) ONE (01:35)
[2020-06-06 02:17] LABS: Urine Bacteria NONE SEEN /hpf (None Seen); Urine Blood Negative /uL (Negative); Urine Specific Gravity 1.006 (1.001-1.035); Urine WBC <1 /hpf (0 - 3)
[2020-06-06 02:26] LABS: Amphetamine Screen, Urine NEGATIVE (NEGATIVE); Barbiturate Scree,Urine NEGATIVE (NEGATIVE); Benzodiazephine Screen, Urine NEGATIVE (NEGATIVE); Cannabinoid Screen, Urine NEGATIVE (NEGATIVE); Cocaine Screen, Urine NEGATIVE (NEGATIVE); Opiate Scree,Urine NEGATIVE (NEGATIVE); Phencyclidine Screen, Urine NEGATIVE (NEGATIVE)
[2020-06-06 04:08] LABS: Basophils # (auto) 0.1 10 ^3/uL (0-0.2); Basophils % (auto) 1.2 % (0.0-2.0); Eosinophils # (auto) 0.5 10 ^3/uL (0-0.8); Eosinophils % (auto) 7.7 % (0.0-7.0); Hematocrit 37.6 % (41.0-53.0); Hemoglobin 12.6 g/dL (13.5-17.5); Lymphocytes # (auto) 1.2 10 ^3/uL (0.4-5.4); Lymphocytes % (auto) 18.2 % (10.0-50.0); Mean Corpuscular Hemoglobin 32.9 pg (28.0-32.0); Mean Corpuscular Hgb Conc. 33.4 g/dL (32.0-36.0); Mean Corpuscular Volume 98.6 fL (80.0-100.0); Monocytes # (auto) 0.6 10 ^3/uL (0-1.3); Monocytes % (auto) 8.5 % (0.0-12.0); Neutrophils # (auto) 4.3 10 ^3/uL (1.6-8.6); Neutrophils % (auto) 64.4 % (37.0-80.0); Platelet Count (auto) 171 10^3/uL (140-450); Red Blood Cells 3.81 10^6/uL (4.5-5.90); Red Cell Distribution Width 14.6 % (11.8-14.3); White Blood Cell 6.7 10^3/uL (4.4-10.8)
[2020-06-06 04:22] LABS: Acetaminophen < 2.0 ug/mL (10-30); Albumin 3.1 g/dL (3.4-5.0); Calcium 7.6 mg/dL (8.5-10.1); Magnesium 1.8 mg/dL (1.6-2.6); Potassium 3.6 mmol/L (3.5-5.1); Salicylate < 1.7 mg/dL (2.8-20.0)
[2020-06-06 04:27] LABS: BUN/Creatinine Ratio 18.2; Bilirubin, Total 1.1 mg/dL (0.2-1.0); Total Protein 6.2 g/dL (6.4-8.2)
[2020-06-06] MEDS ORDERED: LORazepam 0.5 MG TAB PO ONE (07:30)
[2020-06-06 10:30] VITALS: BP 157/80
[2020-06-06] MEDS ORDERED: FOLIC ACID 1 MG, MULTIPLE VITAMIN 10 ML, MAGNESIUM SULF SDV 50% 8 MEQ, THIAMINE INJ 100... INJ SCH ×5 (12:00)
== END 2020-06-06 10:50 | disposition home or self-care (01) ==
LOC: EDUNIT# 19:12 → EDBD 19:12 → ER 19:12
DX: S01.01XA Laceration without foreign body of scalp, initial encounter (principal); F10.129 Alcohol abuse with intoxication, unspecified; I11.0 Hypertensive heart disease with heart failure; I50.9 Heart failure, unspecified; J44.9 Chronic obstructive pulmonary disease, unspecified; E07.9 Disorder of thyroid, unspecified; F13.20 Sedative, hypnotic or anxiolytic dependence, uncomplicated; Y90.9 Presence of alcohol in blood, level not specified; X58.XXXA Exposure to other specified factors, initial encounter; Y93.89 Activity, other specified; Y92.89 Other specified places as the place of occurrence of the external cause; Y99.8 Other external cause status
CPT/HCPCS: 36415; 70450; 80053; 80307; 80320; 80329; 81001; 83735; 85025; 93005; 96361; 96365; 96366; 99285; J3411; J3475; J7030

== ENCOUNTER → 2020-08-20 | Outpatient (CLI) | payer BC, MEDICARE ==
[~2020-08-20] VITALS: Ht 180.3 cm; Wt 63.5 kg
[~2020-08-20] MED LIST changes: +ADENOSINE 53 MG in GIVE UN-DILUTED 0 ML IV ONE; +ADENOSINE 90 MG/30 ML INJ IV ONE
== END | disposition home or self-care (01) ==
LOC: Rad HDHVI 09:07
PROVIDERS: ATTEND Internal Medicine Cardiovascular Disease
DX: I11.0 Hypertensive heart disease with heart failure (principal); I50.33 Acute on chronic diastolic (congestive) heart failure; E78.5 Hyperlipidemia, unspecified; E11.9 Type 2 diabetes mellitus without complications; Z95.2 Presence of prosthetic heart valve; Z82.49 Family history of ischemic heart disease and other diseases of the circulatory system
CPT/HCPCS: 78452; 93005; 96374; 96375; A9500; J0153

== ENCOUNTER → 2020-08-27 | Outpatient (CLI) | payer BC, MEDICARE ==
[~2020-08-27] MED LIST changes: -ADENOSINE 53 MG in GIVE UN-DILUTED 0 ML IV ONE; -ADENOSINE 90 MG/30 ML INJ IV ONE
== END | disposition home or self-care (01) ==
LOC: Rad HDHVI 13:12
PROVIDERS: ATTEND Internal Medicine Cardiovascular Disease
DX: I50.33 Acute on chronic diastolic (congestive) heart failure (principal); R00.2 Palpitations
CPT/HCPCS: 93306

== ENCOUNTER → 2020-08-31 | Outpatient (CLI) | payer BC, MEDICARE ==
[2020-08-31 12:33] LABS: Potassium 3.5 mmol/L (3.5-5.1)
[2020-08-31 12:48] LABS: Albumin 3.5 g/dL (3.4-5.0); BUN/Creatinine Ratio 16.8; Bilirubin, Total 0.6 mg/dL (0.2-1.0); Calcium 8.4 mg/dL (8.5-10.1); Free T4 (Free Thyroxine) 1.38 ng/dL (0.89-1.76); Total Protein 7.2 g/dL (6.4-8.2)
[2020-08-31 12:49] LABS: Prostate Specific Antigen 0.5 ng/mL (0.0-4.0)
[2020-08-31 12:51] LABS: Urine Blood Negative /uL (Negative); Urine Specific Gravity 1.018 (1.001-1.035)
[2020-08-31 13:09] LABS: Basophils # (auto) 0.1 10 ^3/uL (0-0.2); Basophils % (auto) 1.2 % (0.0-2.0); Eosinophils # (auto) 0.8 10 ^3/uL (0-0.8); Eosinophils % (auto) 9.9 % (0.0-7.0); Hematocrit 41.3 % (41.0-53.0); Lymphocytes # (auto) 1.3 10 ^3/uL (0.4-5.4); Lymphocytes % (auto) 15.5 % (10.0-50.0); Mean Corpuscular Hemoglobin 32.6 pg (28.0-32.0); Mean Corpuscular Hgb Conc. 33.9 g/dL (32.0-36.0); Monocytes # (auto) 0.6 10 ^3/uL (0-1.3); Monocytes % (auto) 6.8 % (0.0-12.0); Neutrophils # (auto) 5.6 10 ^3/uL (1.6-8.6); Neutrophils % (auto) 66.6 % (37.0-80.0); Nucleated Red Blood Cells % 0.1 %; Platelet Count (auto) 190 10^3/uL (140-450); Red Cell Distribution Width 13.5 % (11.8-14.3); White Blood Cell 8.5 10^3/uL (4.4-10.8)
== END | disposition home or self-care (01) ==
LOC: LAB 08:25
PROVIDERS: ATTEND Internal Medicine Cardiovascular Disease
DX: C61 Malignant neoplasm of prostate (principal); D51.3 Other dietary vitamin B12 deficiency anemia; I10 Essential (primary) hypertension; E11.9 Type 2 diabetes mellitus without complications; E55.9 Vitamin D deficiency, unspecified; D64.9 Anemia, unspecified; R00.2 Palpitations; R53.1 Weakness; R30.0 Dysuria
CPT/HCPCS: 36415; 80053; 80061; 81003; 82306; 82607; 83036; 84153; 84403; 84439; 84443; 85025

== ENCOUNTER → 2021-01-13 | Outpatient (CLI) | payer BC, MEDICARE ==
[~2021-01-13] MED LIST changes: +LEVO125T PO; -LEVO125T66 PO
[2021-01-13 11:41] LABS: Basophils # (auto) 0.1 10 ^3/uL (0-0.2); Basophils % (auto) 0.8 % (0.0-2.0); Eosinophils # (auto) 0.5 10 ^3/uL (0-0.8); Eosinophils % (auto) 5.8 % (0.0-7.0); Hemoglobin 14.3 g/dL (13.5-17.5); Lymphocytes # (auto) 1.1 10 ^3/uL (0.4-5.4); Mean Corpuscular Hemoglobin 33.8 pg (28.0-32.0); Mean Corpuscular Hgb Conc. 34.9 g/dL (32.0-36.0); Mean Corpuscular Volume 96.9 fL (80.0-100.0); Monocytes # (auto) 0.6 10 ^3/uL (0-1.3); Monocytes % (auto) 7.1 % (0.0-12.0); Neutrophils % (auto) 73.3 % (37.0-80.0); Nucleated Red Blood Cells % 0.2 %; Platelet Count (auto) 190 10^3/uL (140-450); Red Blood Cells 4.23 10^6/uL (4.5-5.90); Red Cell Distribution Width 14.2 % (11.8-14.3); White Blood Cell 8.2 10^3/uL (4.4-10.8)
[2021-01-13 11:54] LABS: Potassium 4.4 mmol/L (3.5-5.1); Urine Blood TRACE /uL (Negative)
[2021-01-13 11:56] LABS: Free T4 (Free Thyroxine) 1.56 ng/dL (0.89-1.76); Prostate Specific Antigen 0.53 ng/mL (0.0-4.0)
[2021-01-13 12:13] LABS: Albumin 3.9 g/dL (3.4-5.0); Bilirubin, Total 0.7 mg/dL (0.2-1.0); Total Protein 7.8 g/dL (6.4-8.2)
== END | disposition home or self-care (01) ==
LOC: LAB 08:37
PROVIDERS: ATTEND Internal Medicine Cardiovascular Disease
DX: C61 Malignant neoplasm of prostate (principal); D51.3 Other dietary vitamin B12 deficiency anemia; I10 Essential (primary) hypertension; E11.9 Type 2 diabetes mellitus without complications; E55.9 Vitamin D deficiency, unspecified; D64.9 Anemia, unspecified; R00.2 Palpitations; R53.1 Weakness; R30.0 Dysuria
CPT/HCPCS: 36415; 80053; 80061; 81003; 82306; 82607; 83036; 84153; 84403; 84439; 84443; 85025

== ENCOUNTER 2021-01-15 14:05 | Inpatient (IN) | payer BC, MEDICARE ==
[~2021-01-15] VITALS: Ht 175.3 cm; Wt 63.0 kg
[2021-01-15] MEDS ORDERED: ONDANSETRON HCL 4 MG/2 ML VIAL IV ONE ×2 (15:45→19:00)
[2021-01-15] MEDS ORDERED: MORPHINE SULFATE 4 MG/ML SYR/VIAL IV ONE (15:45)
[2021-01-15 16:49] LABS: Basophils # (auto) 0.1 10 ^3/uL (0-0.2); Basophils % (auto) 0.7 % (0.0-2.0); Eosinophils # (auto) 0.2 10 ^3/uL (0-0.8); Eosinophils % (auto) 1.4 % (0.0-7.0); Hematocrit 41.3 % (41.0-53.0); Hemoglobin 13.9 g/dL (13.5-17.5); Lymphocytes # (auto) 0.9 10 ^3/uL (0.4-5.4); Lymphocytes % (auto) 8.8 % (10.0-50.0); Mean Corpuscular Hemoglobin 32.7 pg (28.0-32.0); Mean Corpuscular Hgb Conc. 33.8 g/dL (32.0-36.0); Mean Corpuscular Volume 96.8 fL (80.0-100.0); Monocytes # (auto) 0.7 10 ^3/uL (0-1.3); Monocytes % (auto) 6.9 % (0.0-12.0); Neutrophils # (auto) 8.8 10 ^3/uL (1.6-8.6); Neutrophils % (auto) 82.2 % (37.0-80.0); Nucleated Red Blood Cells % 0.1 %; Platelet Count (auto) 210 10^3/uL (140-450); Red Blood Cells 4.26 10^6/uL (4.5-5.90); White Blood Cell 10.7 10^3/uL (4.4-10.8)
[2021-01-15 17:09] LABS: Alanine Aminotransferase 49 U/L (16-61); Albumin 3.5 g/dL (3.4-5.0); Anion Gap 11 (5-15); Aspartate Aminotransferase 59 U/L (15-37); BUN/Creatinine Ratio 26.8; Blood Urea Nitrogen 22 mg/dL (7-18); Calcium 7.9 mg/dL (8.5-10.1); Carbon Dioxide 22 mmol/L (21-32); Chloride 105 mmol/L (98-107); GFR African American 123 mL/min; GFR Non-African American 102 mL/min; Glucose 88 mg/dL (74-106); INR 1.13 (0.9-1.15); Partial Thromboplastin Time 24.8 sec (23.0-31.2); Potassium 3.4 mmol/L (3.5-5.1); Sodium 138 mmol/L (136-145)
[2021-01-15 17:11] LABS: Alkaline Phosphatase 83 U/L (45-117); Bilirubin, Total 1.5 mg/dL (0.2-1.0); Total Protein 6.9 g/dL (6.4-8.2)
[2021-01-15] MEDS ORDERED: MORPHINE SULF INJ 2 MG/ML SYRINGE 1ML IV PRN ×2 (18:30→20:15)
[2021-01-15] MEDS ORDERED: NITROGLYCERIN 0.4 MG SL TAB SL PRN ×2 (18:30→20:15)
[2021-01-15] MEDS ORDERED: HYDROmorphone HCL 2 MG/ML VL IV ONE (19:00)
[2021-01-15] MEDS ORDERED: FOLIC ACID 1 MG TAB PO ONE (20:15)
[2021-01-15] MEDS ORDERED: ALUM & MAG HYDROX-SIMETH LIQ(MAALOX) 30 ML PO PRN (20:15)
[2021-01-15] MEDS ORDERED: CALCIUM GLUC 1,000mg/50ml-NS 50 ML IV ONE (20:15)
[2021-01-15] MEDS ORDERED: CLINDAMYCIN 600MG IV 50 ML IV ONE (20:15)
[2021-01-15] MEDS ORDERED: ONDANSETRON HCL 4 MG/2 ML VIAL IV PRN (20:15)
[2021-01-15] MEDS ORDERED: POTASSIUM CHL 20MEQ/100ML 100 ML IV ONE (20:15)
[2021-01-15] MEDS ORDERED: THIAMINE HCL 100 MG TAB PO ONE (20:15)
[2021-01-15] MEDS ORDERED: ACETAMINOPHEN 325 MG TAB PO PRN (20:15)
[2021-01-15] MEDS ORDERED: cefTRIAXone 1GM/50ML D5W 50 ML IV ONE (20:15)
[2021-01-15] MEDS ORDERED: DOCUSATE SOD 100 MG CAP PO PRN (20:15)
[2021-01-15] MEDS ORDERED: MAGNESIUM SULFATE 1GM/100ML 100 ML IV ONE (20:15)
[2021-01-15] MEDS ORDERED: MULTIPLE VITAMINS W/ MINERALS TAB PO ONE (20:15)
[2021-01-15] MEDS ORDERED: hydrALAZINE HCL 20 MG/ML VL IV PRN (20:15)
[2021-01-15] MEDS ORDERED: THIAMINE 100mg/ml INJ (200mg/2ml VIAL) IV ONE (20:15)
[2021-01-15 21:00] VITALS: BP 126/81
[2021-01-15] MEDS: LORazepam 2MG/ML-1ML VIAL IV PRN (21:57)
[2021-01-15] MEDS: METOPROLOL TARTRATE 50 MG TAB PO SCH (22:00)
[2021-01-15] MEDS: CLINDAMYCIN 600MG IV 50 ML IV SCH (22:00)
[2021-01-15] MEDS: QUEtiapine FUMARATE 25 MG TAB PO SCH (22:01)
[2021-01-15] MEDS: FAMOTIDINE 20 MG TAB PO SCH (22:02)
[2021-01-15 23:30] LABS: Cholesterol 99 mg/dL (< 200); HDL Cholesterol 43 mg/dL (40-59); LDL Cholesterol 25 mg/dL (< 100); Triglycerides 243 mg/dL (< 150)
[2021-01-15] MEDS: chlordiazePOXIDE HCL 25 MG CAP PO SCH (23:46)
[2021-01-16] MEDS: MORPHINE SULF INJ 2 MG/ML SYRINGE 1ML IV PRN ×5 (00:05→18:50)
[2021-01-16] MEDS: HYDROcodone-ACET 5/325MG TAB PO PRN ×2 (01:08→16:52)
[2021-01-16] MEDS: LORazepam 2MG/ML-1ML VIAL IV PRN ×2 (04:03→13:26)
[2021-01-16] MEDS: chlordiazePOXIDE HCL 25 MG CAP PO SCH ×4 (04:15→22:56)
[2021-01-16 05:19] VITALS: BP 107/62
[2021-01-16] MEDS: CLINDAMYCIN 600MG IV 50 ML IV SCH ×3 (06:27→22:57)
[2021-01-16 08:00] VITALS: BP 106/62
[2021-01-16] MEDS: CALCIUM W/VIT D (600MG/400IU) TAB PO SCH ×2 (08:00→18:40)
[2021-01-16 08:50] VITALS: BP 105/67
[2021-01-16] MEDS: cefTRIAXone 1GM/50ML D5W 50 ML IV SCH (09:30)
[2021-01-16] MEDS: CARISOPRODOL 350 MG TAB PO SCH (10:00)
[2021-01-16] MEDS: FOLIC ACID 1 MG TAB PO SCH (10:00)
[2021-01-16] MEDS: MULTIPLE VITAMINS W/ MINERALS TAB PO SCH (10:00)
[2021-01-16] MEDS: FAMOTIDINE 20 MG TAB PO SCH ×2 (10:00→22:56)
[2021-01-16] MEDS: THIAMINE HCL 100 MG TAB PO SCH (10:00)
[2021-01-16] MEDS: ENOXAPARIN SOD 40 MG/0.4 ML SYRINGE SC SCH (10:00)
[2021-01-16] MEDS: LISINOPRIL 20 MG TAB PO SCH (10:00)
[2021-01-16] MEDS: AMIODARONE HCL 200 MG TAB PO SCH (10:00)
[2021-01-16] MEDS: METOPROLOL TARTRATE 50 MG TAB PO SCH ×2 (10:00→22:07)
[2021-01-16] MEDS: ASPirin-EC 81 mg tab PO SCH (10:00)
[2021-01-16 10:23] LABS: Basophils # (auto) 0 10 ^3/uL (0-0.2); Basophils % (auto) 0.3 % (0.0-2.0); Eosinophils # (auto) 0.1 10 ^3/uL (0-0.8); Eosinophils % (auto) 0.7 % (0.0-7.0); Hematocrit 37.4 % (41.0-53.0); Hemoglobin 13.1 g/dL (13.5-17.5); Lymphocytes # (auto) 0.7 10 ^3/uL (0.4-5.4); Lymphocytes % (auto) 7.3 % (10.0-50.0); Mean Corpuscular Hemoglobin 33.4 pg (28.0-32.0); Mean Corpuscular Volume 95.3 fL (80.0-100.0); Monocytes % (auto) 10.6 % (0.0-12.0); Neutrophils # (auto) 7.5 10 ^3/uL (1.6-8.6); Neutrophils % (auto) 81.1 % (37.0-80.0); Platelet Count (auto) 176 10^3/uL (140-450); Red Blood Cells 3.92 10^6/uL (4.5-5.90); Red Cell Distribution Width 13.7 % (11.8-14.3); White Blood Cell 9.2 10^3/uL (4.4-10.8)
[2021-01-16 10:40] LABS: Albumin 3.3 g/dL (3.4-5.0); Anion Gap 8 (5-15); Calcium 8.3 mg/dL (8.5-10.1); Carbon Dioxide 24 mmol/L (21-32); Chloride 104 mmol/L (98-107); Glucose 133 mg/dL (74-106); Magnesium 2.4 mg/dL (1.6-2.6); Potassium 3.6 mmol/L (3.5-5.1); Sodium 136 mmol/L (136-145)
[2021-01-16 10:51] LABS: Alanine Aminotransferase 44 U/L (16-61); Alkaline Phosphatase 87 U/L (45-117); Aspartate Aminotransferase 42 U/L (15-37); BUN/Creatinine Ratio 22.8; Bilirubin, Total 1.2 mg/dL (0.2-1.0); Blood Urea Nitrogen 26 mg/dL (7-18); GFR African American 84 mL/min; GFR Non-African American 70 mL/min; Phosphorus 4.3 mg/dL (2.5-4.90); Total Protein 6.6 g/dL (6.4-8.2)
[2021-01-16 12:35] VITALS: BP 98/55
[2021-01-16 14:15] LABS: Partial Thromboplastin Time 35.8 sec (23.0-31.2)
[2021-01-16 16:41] VITALS: BP 101/59
[2021-01-16 22:00] VITALS: BP 109/67
[2021-01-16] MEDS: QUEtiapine FUMARATE 25 MG TAB PO SCH (22:57)
[2021-01-16] MEDS: LORazepam 0.5 MG TAB PO PRN (23:02)
[2021-01-17] MEDS: MORPHINE SULF INJ 2 MG/ML SYRINGE 1ML IV PRN (01:18)
[2021-01-17 05:00] VITALS: BP 82/44
[2021-01-17] MEDS: CLINDAMYCIN 600MG IV 50 ML IV SCH (06:37)
[2021-01-17] MEDS ORDERED: SODIUM CHLORIDE 0.9% 500 ML IV ONE (08:00)
[2021-01-17] MEDS: HYDROcodone-ACET 5/325MG TAB PO PRN (08:35)
[2021-01-17] MEDS: ASPirin-EC 81 mg tab PO SCH (08:36)
[2021-01-17] MEDS: MULTIPLE VITAMINS W/ MINERALS TAB PO SCH (08:36)
[2021-01-17] MEDS: FAMOTIDINE 20 MG TAB PO SCH (08:37)
[2021-01-17] MEDS: THIAMINE HCL 100 MG TAB PO SCH (08:37)
[2021-01-17] MEDS: ENOXAPARIN SOD 40 MG/0.4 ML SYRINGE SC SCH (08:37)
[2021-01-17] MEDS: LORazepam 0.5 MG TAB PO PRN (08:37)
[2021-01-17] MEDS: CALCIUM W/VIT D (600MG/400IU) TAB PO SCH (08:38)
[2021-01-17] MEDS: AMIODARONE HCL 200 MG TAB PO SCH (08:38)
[2021-01-17] MEDS: CARISOPRODOL 350 MG TAB PO SCH (08:38)
[2021-01-17] MEDS: LISINOPRIL 20 MG TAB PO SCH (08:39)
[2021-01-17] MEDS: METOPROLOL TARTRATE 50 MG TAB PO SCH (08:39)
[2021-01-17] MEDS: cefTRIAXone 1GM/50ML D5W 50 ML IV SCH (08:40)
[2021-01-17] MEDS: FOLIC ACID 1 MG TAB PO SCH (09:02)
[2021-01-17 09:10] VITALS: BP 95/61
[2021-01-17] MEDS ORDERED: chlordiazePOXIDE HCL 25 MG CAP PO SCH (10:00)
[2021-01-17 10:33] VITALS: BP 95/61
[2021-01-17 12:53] VITALS: BP 91/52
[2021-01-18] MEDS ORDERED: chlordiazePOXIDE HCL 25 MG CAP PO SCH (07:00)
== END 2021-01-17 13:00 | disposition home or self-care (01) | DRG 562 ==
LOC: EDBD 14:05 → ER 14:05 → TELE 18:22 → TELE-CENTR 21:00
PROVIDERS: ADMIT Hospitalist; ATTEND Hospitalist
DX: S42.202A Unspecified fracture of upper end of left humerus, initial encounter for closed fracture (principal); J69.0 Pneumonitis due to inhalation of food and vomit; I50.30 Unspecified diastolic (congestive) heart failure; I16.9 Hypertensive crisis, unspecified; R64 Cachexia; F11.20 Opioid dependence, uncomplicated; E78.5 Hyperlipidemia, unspecified; G89.4 Chronic pain syndrome; F41.9 Anxiety disorder, unspecified; F32.9 Major depressive disorder, single episode, unspecified; F17.200 Nicotine dependence, unspecified, uncomplicated; W10.8XXA Fall (on) (from) other stairs and steps, initial encounter; Z20.822 Contact with and (suspected) exposure to COVID-19; E03.9 Hypothyroidism, unspecified; J44.9 Chronic obstructive pulmonary disease, unspecified; I11.0 Hypertensive heart disease with heart failure; H91.90 Unspecified hearing loss, unspecified ear; F10.129 Alcohol abuse with intoxication, unspecified; Z79.899 Other long term (current) drug therapy; Z86.73 Personal history of transient ischemic attack (TIA), and cerebral infarction without residual deficits; Z90.49 Acquired absence of other specified parts of digestive tract; Z86.79 Personal history of other diseases of the circulatory system; Z87.11 Personal history of peptic ulcer disease; Z95.1 Presence of aortocoronary bypass graft; Z95.2 Presence of prosthetic heart valve; Z88.1 Allergy status to other antibiotic agents; Y93.89 Activity, other specified; Y92.89 Other specified places as the place of occurrence of the external cause; Y99.8 Other external cause status; Z68.20 Body mass index [BMI] 20.0-20.9, adult
CPT/HCPCS: 36415; 70450; 71045; 72192; 73060; 80053; 80061; 82306; 83735; 83880; 84100; 84443; 84484; 85025; 85610; 85730; 87040; 87426; 96374; 96375; 96376; G0378; J0696; J2405; J3480; J3490

== ENCOUNTER 2021-01-29 13:27 | Inpatient (IN) | payer BC, MEDICARE ==
[~2021-01-29] VITALS: Ht 180.3 cm; Wt 56.0 kg
[2021-01-29] MEDS ORDERED: diphenhdrAMINE HCL 25 MG CAP PO PRN (15:00)
[2021-01-29] MEDS ORDERED: MORPHINE SULF INJ 2 MG/ML SYRINGE 1ML IV PRN (15:00)
[2021-01-29] MEDS ORDERED: NITROGLYCERIN 0.4 MG SL TAB SL PRN (15:00)
[2021-01-29] MEDS ORDERED: ALBUTEROL SULF 2.5 MG/0.5ML(0.5%) NEB SOLN NEB SCH (15:00)
[2021-01-29] MEDS ORDERED: IBUPROFEN 800 MG TAB PO PRN (15:00)
[2021-01-29] MEDS ORDERED: LORazepam 0.5 MG TAB PO PRN (15:00)
[2021-01-29 15:49] VITALS: BP 133/83
[2021-01-29 16:26] LABS: Basophils # (auto) 0 10 ^3/uL (0-0.2); Basophils % (auto) 0.4 % (0.0-2.0); Eosinophils # (auto) 0.7 10 ^3/uL (0-0.8); Eosinophils % (auto) 6.5 % (0.0-7.0); Hematocrit 35.6 % (41.0-53.0); Hemoglobin 12.3 g/dL (13.5-17.5); Lymphocytes # (auto) 0.9 10 ^3/uL (0.4-5.4); Lymphocytes % (auto) 8.9 % (10.0-50.0); Mean Corpuscular Hemoglobin 33.3 pg (28.0-32.0); Mean Corpuscular Hgb Conc. 34.5 g/dL (32.0-36.0); Mean Corpuscular Volume 96.4 fL (80.0-100.0); Monocytes # (auto) 0.7 10 ^3/uL (0-1.3); Neutrophils # (auto) 8.1 10 ^3/uL (1.6-8.6); Neutrophils % (auto) 77.2 % (37.0-80.0); Platelet Count (auto) 306 10^3/uL (140-450); Red Blood Cells 3.69 10^6/uL (4.5-5.90); Red Cell Distribution Width 15.1 % (11.8-14.3); White Blood Cell 10.5 10^3/uL (4.4-10.8)
[2021-01-29 16:48] LABS: Albumin 3.4 g/dL (3.4-5.0); BUN/Creatinine Ratio 15.2; Calcium 8.5 mg/dL (8.5-10.1)
[2021-01-29] MEDS: HYDROcodone-ACET 10/325MG TAB PO PRN (16:48)
[2021-01-29 16:50] LABS: Bilirubin, Total 0.8 mg/dL (0.2-1.0); Total Protein 7.5 g/dL (6.4-8.2)
[2021-01-29 19:45] VITALS: BP 133/83
[2021-01-29 20:00] VITALS: BP 124/73
[2021-01-29] MEDS: PREGABALIN CAPSULE 75 MG CAP PO SCH (21:50)
[2021-01-29 22:00] VITALS: BP 124/73
[2021-01-30 05:00] VITALS: BP 107/64
[2021-01-30] MEDS: ALBUTEROL SULF 2.5 MG/0.5ML(0.5%) NEB SOLN NEB SCH ×5 (06:19→23:59)
[2021-01-30] MEDS: LEVOTHYROXINE SODIUM 50 MCG TAB PO SCH (06:38)
[2021-01-30] MEDS: HYDROcodone-ACET 10/325MG TAB PO PRN (06:39)
[2021-01-30 09:00] VITALS: BP 116/79
[2021-01-30] MEDS: AMIODARONE HCL 200 MG TAB PO SCH (09:10)
[2021-01-30] MEDS: amLODIPine BESYLATE 5 MG TAB PO SCH (09:11)
[2021-01-30] MEDS: PREGABALIN CAPSULE 75 MG CAP PO SCH ×2 (09:11→21:54)
[2021-01-30] MEDS: METOPROLOL SUCCINATE XL 50 MG TAB PO SCH (09:12)
[2021-01-30] MEDS: LISINOPRIL 20 MG TAB PO SCH (09:13)
[2021-01-30] MEDS ORDERED: HYDROmorphone HCL 2 MG/ML VL IV PRN (10:30)
[2021-01-30] MEDS: HYDROmorphone HCL 2 MG/ML VL IV PRN ×2 (10:50→21:54)
[2021-01-30 11:11] LABS: INR 1.1 (0.9-1.15)
[2021-01-30 13:00] VITALS: BP 105/69
[2021-01-30] MEDS: IBUPROFEN 800 MG TAB PO PRN (15:26)
[2021-01-30 16:32] VITALS: BP 107/64
[2021-01-30 21:44] VITALS: BP 117/75
[2021-01-31] MEDS: IBUPROFEN 800 MG TAB PO PRN ×2 (01:06→10:20)
[2021-01-31 04:47] VITALS: BP 95/54
[2021-01-31] MEDS: LEVOTHYROXINE SODIUM 50 MCG TAB PO SCH (06:31)
[2021-01-31] MEDS: HYDROcodone-ACET 10/325MG TAB PO PRN ×2 (06:31→14:41)
[2021-01-31] MEDS: ALBUTEROL SULF 2.5 MG/0.5ML(0.5%) NEB SOLN NEB SCH ×3 (06:46→18:35)
[2021-01-31] MEDS: HYDROmorphone HCL 2 MG/ML VL IV PRN ×2 (07:59→16:52)
[2021-01-31 09:00] VITALS: BP 115/70
[2021-01-31] MEDS: AMIODARONE HCL 200 MG TAB PO SCH (10:10)
[2021-01-31] MEDS: PREGABALIN CAPSULE 75 MG CAP PO SCH ×2 (10:10→21:22)
[2021-01-31] MEDS: amLODIPine BESYLATE 5 MG TAB PO SCH (10:10)
[2021-01-31] MEDS: METOPROLOL SUCCINATE XL 50 MG TAB PO SCH (10:11)
[2021-01-31] MEDS ORDERED: ALBUTEROL SULF 2.5 MG/0.5ML(0.5%) NEB SOLN ONE (11:45)
[2021-01-31] MEDS: LISINOPRIL 20 MG TAB PO SCH (12:32)
[2021-01-31 13:00] VITALS: BP 122/71
[2021-01-31 17:00] VITALS: BP 108/72
[2021-01-31 22:00] VITALS: BP 110/73
[2021-02-01] MEDS: ALBUTEROL SULF 2.5 MG/0.5ML(0.5%) NEB SOLN NEB SCH ×4 (00:07→21:12)
[2021-02-01] MEDS: HYDROmorphone HCL 2 MG/ML VL IV PRN ×2 (00:58→20:17)
[2021-02-01 05:00] VITALS: BP 91/61
[2021-02-01] MEDS: LEVOTHYROXINE SODIUM 50 MCG TAB PO SCH (06:19)
[2021-02-01] MEDS: IBUPROFEN 800 MG TAB PO PRN (06:42)
[2021-02-01 07:07] LABS: Basophils # (auto) 0.1 10 ^3/uL (0-0.2); Basophils % (auto) 0.8 % (0.0-2.0); Eosinophils # (auto) 0.7 10 ^3/uL (0-0.8); Eosinophils % (auto) 7.8 % (0.0-7.0); Hematocrit 34.8 % (41.0-53.0); Hemoglobin 11.9 g/dL (13.5-17.5); Lymphocytes # (auto) 1.4 10 ^3/uL (0.4-5.4); Lymphocytes % (auto) 14.3 % (10.0-50.0); Mean Corpuscular Hemoglobin 32.6 pg (28.0-32.0); Mean Corpuscular Hgb Conc. 34.1 g/dL (32.0-36.0); Mean Corpuscular Volume 95.7 fL (80.0-100.0); Monocytes # (auto) 0.7 10 ^3/uL (0-1.3); Monocytes % (auto) 7.2 % (0.0-12.0); Neutrophils # (auto) 6.7 10 ^3/uL (1.6-8.6); Neutrophils % (auto) 69.9 % (37.0-80.0); Platelet Count (auto) 258 10^3/uL (140-450); Red Blood Cells 3.64 10^6/uL (4.5-5.90); Red Cell Distribution Width 14.6 % (11.8-14.3); White Blood Cell 9.5 10^3/uL (4.4-10.8)
[2021-02-01 07:24] LABS: INR 1.09 (0.9-1.15)
[2021-02-01 07:28] LABS: Albumin 3.2 g/dL (3.4-5.0); Calcium 8.6 mg/dL (8.5-10.1); Potassium 3.9 mmol/L (3.5-5.1)
[2021-02-01 07:31] LABS: BUN/Creatinine Ratio 19.8
[2021-02-01 07:37] LABS: Bilirubin, Total 0.7 mg/dL (0.2-1.0); Total Protein 7.3 g/dL (6.4-8.2)
[2021-02-01 09:58] VITALS: BP 116/75
[2021-02-01] MEDS: amLODIPine BESYLATE 5 MG TAB PO SCH (10:24)
[2021-02-01] MEDS: PREGABALIN CAPSULE 75 MG CAP PO SCH ×2 (10:24→22:02)
[2021-02-01] MEDS: AMIODARONE HCL 200 MG TAB PO SCH (10:24)
[2021-02-01] MEDS: LISINOPRIL 20 MG TAB PO SCH (10:25)
[2021-02-01] MEDS: METOPROLOL SUCCINATE XL 50 MG TAB PO SCH (10:25)
[2021-02-01] MEDS: HYDROcodone-ACET 10/325MG TAB PO PRN (11:08)
[2021-02-01 13:00] VITALS: BP 111/71
[2021-02-01 16:49] VITALS: BP 124/76
[2021-02-01 22:00] VITALS: BP 111/77
[2021-02-01] MEDS: ZOLPIDEM TARTRATE 5 MG TAB PO PRN (23:04)
[2021-02-02 05:00] VITALS: BP 113/80
[2021-02-02] MEDS: LEVOTHYROXINE SODIUM 50 MCG TAB PO SCH (06:21)
[2021-02-02] MEDS ORDERED: ALBUTEROL SULF 2.5 MG/0.5ML(0.5%) NEB SOLN ONE (06:26)
[2021-02-02] MEDS: ALBUTEROL SULF 2.5 MG/0.5ML(0.5%) NEB SOLN NEB SCH ×4 (07:06→19:47)
[2021-02-02] MEDS: HYDROmorphone HCL 2 MG/ML VL IV PRN ×2 (08:42→18:57)
[2021-02-02] MEDS: LISINOPRIL 20 MG TAB PO SCH (08:43)
[2021-02-02] MEDS: AMIODARONE HCL 200 MG TAB PO SCH (08:43)
[2021-02-02] MEDS: amLODIPine BESYLATE 5 MG TAB PO SCH (08:43)
[2021-02-02] MEDS: METOPROLOL SUCCINATE XL 50 MG TAB PO SCH (08:44)
[2021-02-02] MEDS: PREGABALIN CAPSULE 75 MG CAP PO SCH ×2 (08:46→21:31)
[2021-02-02 09:00] VITALS: BP_SYST 119; BP_SYST 168; BP_DIAS 80; BP_DIAS 81
[2021-02-02] MEDS: HYDROcodone-ACET 10/325MG TAB PO PRN ×2 (12:48→15:25)
[2021-02-02 12:59] VITALS: BP 119/76
[2021-02-02 17:00] VITALS: BP 128/81
[2021-02-02 21:41] VITALS: BP 118/74
[2021-02-02] MEDS: ZOLPIDEM TARTRATE 5 MG TAB PO PRN (21:59)
[2021-02-03] MEDS: ALBUTEROL SULF 2.5 MG/0.5ML(0.5%) NEB SOLN NEB SCH ×4 (00:05→18:38)
[2021-02-03 04:54] VITALS: BP 94/64
[2021-02-03] MEDS: LEVOTHYROXINE SODIUM 50 MCG TAB PO SCH (06:58)
[2021-02-03 09:00] VITALS: BP 118/74
[2021-02-03] MEDS: amLODIPine BESYLATE 5 MG TAB PO SCH (10:54)
[2021-02-03] MEDS: METOPROLOL SUCCINATE XL 50 MG TAB PO SCH (10:54)
[2021-02-03] MEDS: LISINOPRIL 20 MG TAB PO SCH (10:54)
[2021-02-03] MEDS: AMIODARONE HCL 200 MG TAB PO SCH (10:55)
[2021-02-03] MEDS: PREGABALIN CAPSULE 75 MG CAP PO SCH (10:55)
[2021-02-03] MEDS: HYDROmorphone HCL 2 MG/ML VL IV PRN (10:56)
[2021-02-03] MEDS ORDERED: ALBUTEROL SULF 2.5 MG/0.5ML(0.5%) NEB SOLN ONE ×2 (12:01→18:13)
[2021-02-03 13:00] VITALS: BP 105/69
[2021-02-03] MEDS: HYDROcodone-ACET 10/325MG TAB PO PRN (15:43)
[2021-02-03 16:47] VITALS: BP 123/93
[2021-02-03 18:47] VITALS: BP 118/74
== END 2021-02-03 19:56 | disposition home or self-care (01) | DRG 563 ==
LOC: CENTRAL 13:57
PROVIDERS: ADMIT Internal Medicine Cardiovascular Disease; ATTEND Internal Medicine Cardiovascular Disease
DX: S42.202A Unspecified fracture of upper end of left humerus, initial encounter for closed fracture (principal); M87.852 Other osteonecrosis, left femur; M87.851 Other osteonecrosis, right femur; Z20.822 Contact with and (suspected) exposure to COVID-19; I11.0 Hypertensive heart disease with heart failure; I50.9 Heart failure, unspecified; Z96.643 Presence of artificial hip joint, bilateral; E78.5 Hyperlipidemia, unspecified; E89.0 Postprocedural hypothyroidism; M19.012 Primary osteoarthritis, left shoulder; Z95.2 Presence of prosthetic heart valve; Z88.8 Allergy status to other drugs, medicaments and biological substances; Z79.899 Other long term (current) drug therapy
CPT/HCPCS: 36415; 71045; 73200; 80053; 85025; 85610; 85730; 86850; 86900; 86901; 87081; 87426; 94640; G0378

== ENCOUNTER → 2021-02-17 | Outpatient (CLI) | payer BC, MEDICARE ==
[~2021-02-17] MED LIST changes: +AMLO-489 PO; +CHOL200021 PO; +DIPH25CA66 PO; +FLUO0.054 TOP; +IBUP800T27 PO; +LORA-655 PO; +METO25TA93 PO; +ZOLP10TA PO
== END | disposition home or self-care (01) ==
LOC: Rad HDHVI 12:37
PROVIDERS: ATTEND Internal Medicine Cardiovascular Disease
DX: Z01.818 Encounter for other preprocedural examination (principal); I51.7 Cardiomegaly
CPT/HCPCS: 71046

== ENCOUNTER → 2021-02-18 | Outpatient (CLI) | payer MEDICARE, BC ==
[2021-02-18 15:24] LABS: Urine Blood Negative /uL (Negative); Urine Specific Gravity 1.014 (1.001-1.035)
[2021-02-18 15:34] LABS: BUN/Creatinine Ratio 17.1; Calcium 8.6 mg/dL (8.5-10.1); Potassium 3.7 mmol/L (3.5-5.1)
[2021-02-18 15:37] LABS: Bilirubin, Total 0.7 mg/dL (0.2-1.0); Total Protein 7.9 g/dL (6.4-8.2)
[2021-02-18 15:47] LABS: Basophils # (auto) 0.1 10 ^3/uL (0-0.2); Basophils % (auto) 1.1 % (0.0-2.0); Eosinophils # (auto) 0.5 10 ^3/uL (0-0.8); Eosinophils % (auto) 4.2 % (0.0-7.0); Hematocrit 39.9 % (41.0-53.0); Hemoglobin 13.4 g/dL (13.5-17.5); Lymphocytes % (auto) 9.4 % (10.0-50.0); Mean Corpuscular Hemoglobin 31.9 pg (28.0-32.0); Mean Corpuscular Hgb Conc. 33.5 g/dL (32.0-36.0); Mean Corpuscular Volume 95.2 fL (80.0-100.0); Monocytes # (auto) 0.9 10 ^3/uL (0-1.3); Monocytes % (auto) 7.9 % (0.0-12.0); Neutrophils # (auto) 8.6 10 ^3/uL (1.6-8.6); Neutrophils % (auto) 77.4 % (37.0-80.0); Nucleated Red Blood Cells % 0.1 %; Platelet Count (auto) 267 10^3/uL (140-450); Red Blood Cells 4.19 10^6/uL (4.5-5.90); Red Cell Distribution Width 14.2 % (11.8-14.3); White Blood Cell 11.1 10^3/uL (4.4-10.8)
[2021-02-18 16:08] LABS: INR 1.12 (0.9-1.15); Partial Thromboplastin Time 31.7 sec (23.0-31.2)
== END | disposition home or self-care (01) ==
LOC: Rad HDHVI 11:09
PROVIDERS: ATTEND Internal Medicine Cardiovascular Disease
DX: Z01.812 Encounter for preprocedural laboratory examination (principal); I11.0 Hypertensive heart disease with heart failure; I50.30 Unspecified diastolic (congestive) heart failure
CPT/HCPCS: 36415; 80053; 81003; 85025; 85610; 85730

== ENCOUNTER → 2021-02-18 | Outpatient (CLI) | payer BC, MEDICARE ==
[~2021-02-18] VITALS: Ht 180.3 cm; Wt 59.4 kg
== END | disposition home or self-care (01) ==
LOC: LAB 12:35 → EDSTATUS 02-23 07:00
PROVIDERS: ATTEND Orthopaedic Surgery Sports Medicine
DX: Z01.818 Encounter for other preprocedural examination (principal); I50.9 Heart failure, unspecified; I72.8 Aneurysm of other specified arteries; I25.810 Atherosclerosis of coronary artery bypass graft(s) without angina pectoris; Z93.0 Tracheostomy status; D68.8 Other specified coagulation defects; Z79.899 Other long term (current) drug therapy; Z88.8 Allergy status to other drugs, medicaments and biological substances; Z20.822 Contact with and (suspected) exposure to COVID-19; Z98.890 Other specified postprocedural states

== ENCOUNTER 2021-02-21 09:17 | Inpatient (IN) | payer BC, MEDICARE ==
[~2021-02-21] VITALS: Ht 180.3 cm; Wt 60.9 kg
[~2021-02-21 09:17] MED LIST changes: -ASPI-543 PO; -ATEN50TA80; -CARI-277 PO; -FAMO20TA10 PO; -FOLI1TAB6; -IBUP100S11 PO; -LORA2TAB12 PO; -MET50T GT; -MULTTAB99 GT; -QUET25TA37 PO
[2021-02-21] MEDS ORDERED: SODIUM CHLORIDE 0.9% 1,000 ML IV ONE (09:30)
[2021-02-21 10:11] LABS: Albumin 3.7 g/dL (3.4-5.0); Anion Gap 7 (5-15); Blood Urea Nitrogen 17 mg/dL (7-18); Calcium 8.7 mg/dL (8.5-10.1); Carbon Dioxide 24 mmol/L (21-32); Chloride 104 mmol/L (98-107); Glucose 95 mg/dL (74-106); Potassium 3.9 mmol/L (3.5-5.1); Sodium 135 mmol/L (136-145)
[2021-02-21 10:14] LABS: Basophils # (auto) 0.1 10 ^3/uL (0-0.2); Basophils % (auto) 0.9 % (0.0-2.0); Eosinophils # (auto) 0.8 10 ^3/uL (0-0.8); Eosinophils % (auto) 9.4 % (0.0-7.0); Hematocrit 38.3 % (41.0-53.0); Hemoglobin 12.9 g/dL (13.5-17.5); Lymphocytes # (auto) 0.9 10 ^3/uL (0.4-5.4); Lymphocytes % (auto) 11.4 % (10.0-50.0); Mean Corpuscular Hemoglobin 31.5 pg (28.0-32.0); Mean Corpuscular Hgb Conc. 33.7 g/dL (32.0-36.0); Mean Corpuscular Volume 93.6 fL (80.0-100.0); Monocytes # (auto) 0.6 10 ^3/uL (0-1.3); Monocytes % (auto) 7.3 % (0.0-12.0); Neutrophils # (auto) 5.7 10 ^3/uL (1.6-8.6); Nucleated Red Blood Cells % 0.1 %; Red Blood Cells 4.09 10^6/uL (4.5-5.90); Red Cell Distribution Width 13.6 % (11.8-14.3)
[2021-02-21 10:17] LABS: Alanine Aminotransferase 24 U/L (16-61); Alkaline Phosphatase 83 U/L (45-117); Aspartate Aminotransferase 17 U/L (15-37); BUN/Creatinine Ratio 17.5; Bilirubin, Total 0.4 mg/dL (0.2-1.0); GFR African American 101 mL/min; GFR Non-African American 84 mL/min; Total Protein 7.8 g/dL (6.4-8.2)
[2021-02-21 10:28] LABS: INR 1.07 (0.9-1.15); Partial Thromboplastin Time 30.8 sec (23.0-31.2)
[2021-02-21] MEDS ORDERED: MORPHINE SULFATE INJECTION 2 MG/ML SYRG IV ONE (11:45)
[2021-02-21] MEDS ORDERED: ONDANSETRON HCL 4 MG/2 ML VIAL IV ONE (11:45)
[2021-02-21] MEDS ORDERED: ALBUTEROL SULF 2.5 MG/0.5ML(0.5%) NEB SOLN NEB ONE (12:15)
[2021-02-21] MEDS ORDERED: IPRATROPIUM BROM 0.5 MG/2.5ML INH SOL NEB ONE (12:15)
[2021-02-21 12:30] LABS: Urine Bacteria NONE SEEN /hpf (None Seen); Urine Blood Negative /uL (Negative); Urine Specific Gravity 1.007 (1.001-1.035); Urine WBC <1 /hpf (0 - 3)
[2021-02-21] MEDS ORDERED: MORPHINE SULFATE INJECTION 2 MG/ML SYRG IV PRN (14:15)
[2021-02-21] MEDS ORDERED: diphenhdrAMINE HCL 25 MG CAP PO PRN (14:15)
[2021-02-21] MEDS: HYDROcodone-ACET 10/325MG TAB PO SCH ×2 (14:15→15:05)
[2021-02-21] MEDS ORDERED: NITROGLYCERIN 0.4 MG SL TAB SL PRN (14:15)
[2021-02-21] MEDS: ALBUTEROL SULF 2.5 MG/0.5ML(0.5%) NEB SOLN NEB SCH ×2 (14:30→22:02)
[2021-02-21] MEDS: HYDROcodone-ACET 10/325MG TAB PO PRN (16:31)
[2021-02-21] MEDS: LORazepam 0.5 MG TAB PO SCH ×2 (18:16→22:03)
[2021-02-21 18:32] VITALS: BP 144/85
[2021-02-21] MEDS: ZOLPIDEM TARTRATE 5 MG TAB PO SCH (22:01)
[2021-02-21] MEDS: AMIODARONE HCL 200 MG TAB PO SCH (22:02)
[2021-02-21] MEDS: IBUPROFEN 800 MG TAB PO SCH (22:02)
[2021-02-21 23:03] VITALS: BP 130/67
[2021-02-22 01:21] VITALS: BP 130/67
[2021-02-22 05:32] VITALS: BP 135/90
[2021-02-22] MEDS: LORazepam 0.5 MG TAB PO SCH ×4 (06:14→21:42)
[2021-02-22] MEDS: LEVOTHYROXINE SODIUM 100 MCG TAB PO SCH (06:15)
[2021-02-22] MEDS: ALBUTEROL SULF 2.5 MG/0.5ML(0.5%) NEB SOLN NEB SCH ×3 (06:31→19:39)
[2021-02-22 08:00] VITALS: BP 124/74
[2021-02-22] MEDS: amLODIPine BESYLATE 5 MG TAB PO SCH (08:40)
[2021-02-22] MEDS: AMIODARONE HCL 200 MG TAB PO SCH ×2 (08:40→21:42)
[2021-02-22] MEDS: LISINOPRIL 20 MG TAB PO SCH (08:41)
[2021-02-22] MEDS: METOPROLOL SUCCINATE XL 50 MG TAB PO SCH (08:41)
[2021-02-22] MEDS: HYDROmorphone HCL 2 MG/ML VL IV PRN ×2 (10:17→21:41)
[2021-02-22 12:00] VITALS: BP 139/71
[2021-02-22 16:00] VITALS: BP 107/65
[2021-02-22] MEDS: ZOLPIDEM TARTRATE 5 MG TAB PO SCH (21:42)
[2021-02-22] MEDS: IBUPROFEN 800 MG TAB PO SCH ×2 (21:42→21:57)
[2021-02-22 22:00] VITALS: BP 138/86
[2021-02-23 05:00] VITALS: BP 106/68
[2021-02-23] MEDS: LORazepam 0.5 MG TAB PO SCH ×4 (05:10→21:35)
[2021-02-23] MEDS: LEVOTHYROXINE SODIUM 100 MCG TAB PO SCH (05:10)
[2021-02-23] MEDS: ALBUTEROL SULF 2.5 MG/0.5ML(0.5%) NEB SOLN NEB SCH ×3 (06:30→23:15)
[2021-02-23] MEDS ORDERED: BUPIVACAINE 0.25% INJ 50ML VIAL ONE (07:02)
[2021-02-23] MEDS ORDERED: TRANEXAMIC ACID 20 ML ONE (07:02)
[2021-02-23] MEDS ORDERED: BACITRACIN INJ 50000 UNIT VIAL ONE (07:03)
[2021-02-23] MEDS ORDERED: VANCOMYCIN HCL 1000 MG VL ONE (07:04)
[2021-02-23] MEDS ORDERED: MORPHINE SULF PF 2 MG/2 ML SYRG ONE (07:06)
[2021-02-23] MEDS ORDERED: KETOROLAC TROMETH 30 MG/ML 1ML VIAL ONE (07:06)
[2021-02-23] MEDS ORDERED: ceFAZolin 1GM/50ML 100 ML IV ONE (07:14)
[2021-02-23] MEDS ORDERED: MIDAZOLAM HCL 2MG/2ML 2ml VIAL (1mg/ml) ONE (07:46)
[2021-02-23] MEDS ORDERED: fentaNYL CITRATE 100 MCG/2 ML VL ONE ×2 (07:46→08:38)
[2021-02-23] MEDS ORDERED: MEPERIDINE HCL (50 MG/ML) 1 ML VIAL ONE (07:46)
[2021-02-23] MEDS ORDERED: DexAMETHasone SOD PHOS 10MG/1ML VIAL INJ ONE (07:51)
[2021-02-23] MEDS ORDERED: ETOMIDATE (2MG/ML) 20ML VIAL IV ONE (07:51)
[2021-02-23] MEDS ORDERED: fentaNYL CITRATE 5 ML ONE (08:02)
[2021-02-23] MEDS ORDERED: ONDANSETRON HCL 4 MG/2 ML VIAL IV PRN ×2 (08:45→17:00)
[2021-02-23] MEDS ORDERED: ePHEDrine SULFATE 50 MG/ML AMP IV PRN (08:45)
[2021-02-23] MEDS ORDERED: LABETALOL HCL 5 MG/ML 4ML SYRINGE IV PRN (08:45)
[2021-02-23] MEDS ORDERED: MORPHINE SULFATE 4 MG/ML SYR/VIAL IV PRN (08:45)
[2021-02-23] MEDS ORDERED: MIDAZOLAM HCL 2MG/2ML 2ml VIAL (1mg/ml) IV PRN (08:45)
[2021-02-23] MEDS ORDERED: ceFAZolin 1GM/50ML 50 ML IV SCH (11:00)
[2021-02-23] MEDS: HYDROmorphone HCL 2 MG/ML VL IV PRN ×3 (11:17→16:46)
[2021-02-23] MEDS: METOPROLOL SUCCINATE XL 50 MG TAB PO SCH (12:26)
[2021-02-23] MEDS: amLODIPine BESYLATE 5 MG TAB PO SCH (12:26)
[2021-02-23] MEDS: AMIODARONE HCL 200 MG TAB PO SCH ×2 (12:26→21:35)
[2021-02-23] MEDS: LISINOPRIL 20 MG TAB PO SCH (12:26)
[2021-02-23] MEDS: LACTATED RINGER'S 1,000 ML IV SCH ×2 (12:27→21:42)
[2021-02-23 13:00] VITALS: BP 139/76
[2021-02-23] MEDS: ceFAZolin 1GM/50ML 50 ML IV SCH ×2 (14:21→20:43)
[2021-02-23] MEDS: HYDROcodone-ACET 10/325MG TAB PO PRN ×2 (14:22→20:51)
[2021-02-23 17:00] VITALS: BP 137/85
[2021-02-23] MEDS: ZOLPIDEM TARTRATE 5 MG TAB PO SCH (21:34)
[2021-02-23] MEDS: IBUPROFEN 800 MG TAB PO SCH (21:36)
[2021-02-23 22:00] VITALS: BP 143/76
[2021-02-24] MEDS: HYDROmorphone HCL 2 MG/ML VL IV PRN ×3 (02:01→22:37)
[2021-02-24] MEDS: ceFAZolin 1GM/50ML 50 ML IV SCH (02:02)
[2021-02-24 05:00] VITALS: BP 123/72
[2021-02-24 06:04] LABS: Basophils # (auto) 0 10 ^3/uL (0-0.2); Basophils % (auto) 0.2 % (0.0-2.0); Eosinophils # (auto) 0 10 ^3/uL (0-0.8); Hematocrit 31.7 % (41.0-53.0); Hemoglobin 11.1 g/dL (13.5-17.5); Lymphocytes # (auto) 0.6 10 ^3/uL (0.4-5.4); Lymphocytes % (auto) 4.2 % (10.0-50.0); Mean Corpuscular Hemoglobin 32.5 pg (28.0-32.0); Mean Corpuscular Hgb Conc. 35.2 g/dL (32.0-36.0); Mean Corpuscular Volume 92.4 fL (80.0-100.0); Monocytes # (auto) 0.8 10 ^3/uL (0-1.3); Monocytes % (auto) 5.8 % (0.0-12.0); Neutrophils # (auto) 12.6 10 ^3/uL (1.6-8.6); Neutrophils % (auto) 89.8 % (37.0-80.0); Red Blood Cells 3.43 10^6/uL (4.5-5.90); Red Cell Distribution Width 13.5 % (11.8-14.3)
[2021-02-24 06:18] LABS: BUN/Creatinine Ratio 17.8; Calcium 8.8 mg/dL (8.5-10.1); Potassium 4.5 mmol/L (3.5-5.1)
[2021-02-24] MEDS: LORazepam 0.5 MG TAB PO SCH ×4 (06:25→22:35)
[2021-02-24] MEDS: LACTATED RINGER'S 1,000 ML IV SCH ×2 (06:25→17:00)
[2021-02-24] MEDS: LEVOTHYROXINE SODIUM 100 MCG TAB PO SCH (06:26)
[2021-02-24] MEDS: ALBUTEROL SULF 2.5 MG/0.5ML(0.5%) NEB SOLN NEB SCH ×3 (06:48→22:13)
[2021-02-24 09:00] VITALS: BP 120/70
[2021-02-24] MEDS: HYDROcodone-ACET 10/325MG TAB PO PRN (09:45)
[2021-02-24] MEDS: AMIODARONE HCL 200 MG TAB PO SCH ×2 (09:45→22:35)
[2021-02-24] MEDS: amLODIPine BESYLATE 5 MG TAB PO SCH (09:45)
[2021-02-24] MEDS: METOPROLOL SUCCINATE XL 50 MG TAB PO SCH (09:46)
[2021-02-24] MEDS: LISINOPRIL 20 MG TAB PO SCH (09:46)
[2021-02-24 13:00] VITALS: BP_SYST 112; BP_SYST 114; BP_SYST 132; BP_DIAS 63; BP_DIAS 66; BP_DIAS 70
[2021-02-24 16:57] VITALS: BP 112/66
[2021-02-24] MEDS ORDERED: HYDROmorphone HCL 2 MG/ML VL IV ONE (19:00)
[2021-02-24 22:09] VITALS: BP 112/71
[2021-02-24] MEDS: ZOLPIDEM TARTRATE 5 MG TAB PO SCH (22:35)
[2021-02-24] MEDS: IBUPROFEN 800 MG TAB PO SCH (22:37)
[2021-02-25 01:24] VITALS: BP 112/71
[2021-02-25] MEDS: LACTATED RINGER'S 1,000 ML IV SCH (03:00)
[2021-02-25 04:59] VITALS: BP 113/77
[2021-02-25] MEDS: LEVOTHYROXINE SODIUM 100 MCG TAB PO SCH (05:52)
[2021-02-25] MEDS: LORazepam 0.5 MG TAB PO SCH ×4 (05:54→22:15)
[2021-02-25] MEDS: ALBUTEROL SULF 2.5 MG/0.5ML(0.5%) NEB SOLN NEB SCH ×3 (06:20→22:46)
[2021-02-25 07:08] LABS: Hematocrit 32.6 % (41.0-53.0); Hemoglobin 10.8 g/dL (13.5-17.5)
[2021-02-25 09:16] VITALS: BP 134/68
[2021-02-25] MEDS: LISINOPRIL 20 MG TAB PO SCH (09:48)
[2021-02-25] MEDS: AMIODARONE HCL 200 MG TAB PO SCH ×2 (09:48→22:07)
[2021-02-25] MEDS: amLODIPine BESYLATE 5 MG TAB PO SCH (09:48)
[2021-02-25] MEDS: METOPROLOL SUCCINATE XL 50 MG TAB PO SCH (09:49)
[2021-02-25] MEDS: HYDROcodone-ACET 10/325MG TAB PO PRN (09:49)
[2021-02-25 13:12] VITALS: BP 154/72
[2021-02-25] MEDS: HYDROmorphone HCL 2 MG/ML VL IV PRN ×2 (14:39→23:48)
[2021-02-25 16:24] VITALS: BP 118/77
[2021-02-25 22:00] VITALS: BP 114/70
[2021-02-25] MEDS: IBUPROFEN 800 MG TAB PO SCH (22:08)
[2021-02-25] MEDS: ZOLPIDEM TARTRATE 5 MG TAB PO SCH (22:15)
[2021-02-26 05:22] VITALS: BP 135/83
[2021-02-26] MEDS: LORazepam 0.5 MG TAB PO SCH ×2 (06:27→12:11)
[2021-02-26] MEDS: LEVOTHYROXINE SODIUM 100 MCG TAB PO SCH (06:27)
[2021-02-26] MEDS: ALBUTEROL SULF 2.5 MG/0.5ML(0.5%) NEB SOLN NEB SCH ×2 (06:45→14:03)
[2021-02-26 07:06] LABS: Hematocrit 31.2 % (41.0-53.0); Hemoglobin 10.9 g/dL (13.5-17.5)
[2021-02-26] MEDS: HYDROmorphone HCL 2 MG/ML VL IV PRN (08:38)
[2021-02-26 08:58] VITALS: BP 127/61
[2021-02-26] MEDS: amLODIPine BESYLATE 5 MG TAB PO SCH (09:34)
[2021-02-26] MEDS: METOPROLOL SUCCINATE XL 50 MG TAB PO SCH (09:34)
[2021-02-26] MEDS: AMIODARONE HCL 200 MG TAB PO SCH (09:35)
[2021-02-26] MEDS: LISINOPRIL 20 MG TAB PO SCH (09:35)
[2021-02-26 12:49] VITALS: BP 138/66
[2021-02-26 13:04] VITALS: BP 127/61
== END 2021-02-26 15:55 | disposition home or self-care (01) | DRG 492 ==
LOC: EDBD 09:17 → ER 09:17 → TELE 14:10 → TELE-WESTW 17:57
PROVIDERS: ADMIT Internal Medicine Cardiovascular Disease; ATTEND Internal Medicine Cardiovascular Disease
PROC: 0PSG34Z Reposition Left Humeral Shaft with Internal Fixation Device, Percutaneous Approach (ICD-10-PCS; principal; 2021-02-23 07:35)
DX: S42.332A Displaced oblique fracture of shaft of humerus, left arm, initial encounter for closed fracture (principal); I71.00 Dissection of unspecified site of aorta; I38 Endocarditis, valve unspecified; M87.9 Osteonecrosis, unspecified; I13.0 Hypertensive heart and chronic kidney disease with heart failure and stage 1 through stage 4 chronic kidney disease, or unspecified chronic kidney disease; Z20.822 Contact with and (suspected) exposure to COVID-19; N18.30 Chronic kidney disease, stage 3 unspecified; E89.0 Postprocedural hypothyroidism; F10.129 Alcohol abuse with intoxication, unspecified; H91.90 Unspecified hearing loss, unspecified ear; I25.10 Atherosclerotic heart disease of native coronary artery without angina pectoris; I50.9 Heart failure, unspecified; J44.9 Chronic obstructive pulmonary disease, unspecified; M19.019 Primary osteoarthritis, unspecified shoulder; M81.0 Age-related osteoporosis without current pathological fracture; W18.39XA Other fall on same level, initial encounter; Z96.619 Presence of unspecified artificial shoulder joint; Z96.643 Presence of artificial hip joint, bilateral; D64.9 Anemia, unspecified; F32.9 Major depressive disorder, single episode, unspecified; Y93.89 Activity, other specified; Y92.89 Other specified places as the place of occurrence of the external cause; Y99.8 Other external cause status; Z86.73 Personal history of transient ischemic attack (TIA), and cerebral infarction without residual deficits; Z87.11 Personal history of peptic ulcer disease; Z95.1 Presence of aortocoronary bypass graft; Z95.2 Presence of prosthetic heart valve; Z79.899 Other long term (current) drug therapy; Z79.891 Long term (current) use of opiate analgesic; Z79.01 Long term (current) use of anticoagulants; Z79.82 Long term (current) use of aspirin; Z90.49 Acquired absence of other specified parts of digestive tract; Z83.511 Family history of glaucoma; Z83.42 Family history of familial hypercholesterolemia; Z88.1 Allergy status to other antibiotic agents; Z93.0 Tracheostomy status
CPT/HCPCS: 36415; 70450; 71045; 73060; 76000; 80048; 80053; 81001; 84484; 85014; 85018; 85025; 85610; 85730; 86850; 86900; 86901; 87081; 87426; 93005; 94640; 96361; 96374; 96375; 97110; 97116; 97163; 97530; C1713; G0378; J0690; J1100; J1885; J2250; J2405; J3490

== ENCOUNTER 2021-03-02 05:55 | Emergency (ER) | payer BC, MEDICARE ==
[~2021-03-02] VITALS: Ht 177.8 cm; Wt 68.9 kg
[2021-03-02 06:31] VITALS: BP 125/71
[2021-03-02] MEDS ORDERED: KETOROLAC TROMETH 60MG/2ML VIAL IM ONE (07:30)
== END 2021-03-02 09:48 | disposition home or self-care (01) ==
LOC: ER 05:55 → EDBD 05:55 → ER 09:48
DX: S46.912A Strain of unspecified muscle, fascia and tendon at shoulder and upper arm level, left arm, initial encounter (principal); I13.0 Hypertensive heart and chronic kidney disease with heart failure and stage 1 through stage 4 chronic kidney disease, or unspecified chronic kidney disease; N18.30 Chronic kidney disease, stage 3 unspecified; I50.9 Heart failure, unspecified; J44.9 Chronic obstructive pulmonary disease, unspecified; Z86.73 Personal history of transient ischemic attack (TIA), and cerebral infarction without residual deficits; Z86.2 Personal history of diseases of the blood and blood-forming organs and certain disorders involving the immune mechanism; Z90.49 Acquired absence of other specified parts of digestive tract; Z95.1 Presence of aortocoronary bypass graft; Z90.89 Acquired absence of other organs; Z79.1 Long term (current) use of non-steroidal anti-inflammatories (NSAID); Z79.899 Other long term (current) drug therapy; Z88.8 Allergy status to other drugs, medicaments and biological substances; W18.39XA Other fall on same level, initial encounter; Y93.89 Activity, other specified; Y92.89 Other specified places as the place of occurrence of the external cause; Y99.8 Other external cause status
CPT/HCPCS: 73060; 73090; 96372; 99284; J1885

== ENCOUNTER 2021-04-13 07:58 | Inpatient (IN) | payer BC, MEDICARE ==
[2021-04-12 09:33] LABS: Urine WBC None Seen /hpf (0 - 3)
[2021-04-12 09:42] LABS: Basophils # (auto) 0.1 10 ^3/uL (0-0.2); Basophils % (auto) 1.2 % (0.0-2.0); Eosinophils # (auto) 0.5 10 ^3/uL (0-0.8); Eosinophils % (auto) 5.4 % (0.0-7.0); Hematocrit 38.4 % (41.0-53.0); Hemoglobin 13.5 g/dL (13.5-17.5); Lymphocytes # (auto) 0.9 10 ^3/uL (0.4-5.4); Mean Corpuscular Hemoglobin 31.5 pg (28.0-32.0); Mean Corpuscular Volume 89.9 fL (80.0-100.0); Monocytes # (auto) 0.5 10 ^3/uL (0-1.3); Monocytes % (auto) 6.4 % (0.0-12.0); Neutrophils # (auto) 6.5 10 ^3/uL (1.6-8.6); Platelet Count (auto) 156 10^3/uL (140-450); Red Blood Cells 4.27 10^6/uL (4.5-5.90); White Blood Cell 8.5 10^3/uL (4.4-10.8)
[2021-04-12 09:43] LABS: Urine Bacteria NONE SEEN /hpf (None Seen); Urine Blood Negative /uL (Negative); Urine Specific Gravity 1.022 (1.001-1.035)
[2021-04-12 10:00] LABS: Calcium 8.4 mg/dL (8.5-10.1); Potassium 3.6 mmol/L (3.5-5.1)
[2021-04-12 10:05] LABS: BUN/Creatinine Ratio 25.5; Bilirubin, Total 0.5 mg/dL (0.2-1.0); Total Protein 7.3 g/dL (6.4-8.2)
[~2021-04-13] VITALS: Ht 180.3 cm; Wt 68.3 kg
[2021-04-13] MEDS ORDERED: ceFAZolin 1GM/50ML 100 ML IV ONE (09:21)
[2021-04-13] MEDS ORDERED: BUPIVACAINE HCL 50 ML ONE (10:22)
[2021-04-13] MEDS ORDERED: TRANEXAMIC ACID 20 ML ONE (10:22)
[2021-04-13] MEDS ORDERED: ePHEDrine SULFATE 50 MG/ML AMP IV ONE (10:33)
[2021-04-13] MEDS ORDERED: NEOSTIGMINE 1 MG/ML INJ (10mg/10ML VIAL) IV ONE (10:33)
[2021-04-13] MEDS ORDERED: fentaNYL CITRATE 100 MCG/2 ML VL ONE (10:59)
[2021-04-13] MEDS ORDERED: MIDAZOLAM HCL 1MG/1ML-2 ML VIAL ONE (11:00)
[2021-04-13] MEDS ORDERED: PROPOFOL 10 MG/ML 20 ML IV ONE (11:06)
[2021-04-13] MEDS ORDERED: ONDANSETRON HCL 4 MG/2 ML VIAL ONE (11:06)
[2021-04-13] MEDS ORDERED: LIDOCAINE 2% (LOCAL ANESTH.) PF 5ml SDV ONE (11:06)
[2021-04-13] MEDS ORDERED: VANCOMYCIN HCL 1000 MG VL ONE (11:47)
[2021-04-13] MEDS ORDERED: GLYCOPYRROLATE 0.2 MG/ML 1ML VIAL ONE ×2 (11:49→14:15)
[2021-04-13] MEDS ORDERED: BACITRACIN INJ 50000 UNIT VIAL ONE (11:57)
[2021-04-13] MEDS ORDERED: ROCURONIUM 10MG/ML 10ML VIAL IV ONE (11:58)
[2021-04-13] MEDS: LACTATED RINGER'S 1,000 ML IV SCH ×2 (14:30→23:54)
[2021-04-13] MEDS: ceFAZolin 1GM/50ML 50 ML IV SCH ×2 (14:30→20:33)
[2021-04-13] MEDS ORDERED: ONDANSETRON HCL 4 MG/2 ML VIAL IV PRN (14:30)
[2021-04-13] MEDS ORDERED: NITROGLYCERIN 0.4 MG SL TAB SL PRN (14:30)
[2021-04-13] MEDS ORDERED: MORPHINE SULF INJ 2 MG/ML SYRINGE 1ML IV PRN (14:30)
[2021-04-13] MEDS ORDERED: ACETAMINOPHEN 325 MG TAB PO PRN (14:30)
[2021-04-13] MEDS ORDERED: HYDROmorphone HCL 2 MG/ML VL IV PRN ×2 (14:45)
[2021-04-13] MEDS: HYDROmorphone HCL 2 MG/ML VL IV PRN ×3 (14:57→22:20)
[2021-04-13] MEDS: LORazepam 0.5 MG TAB PO SCH ×2 (17:47→22:00)
[2021-04-13 20:00] VITALS: BP 133/72
[2021-04-13] MEDS: AMIODARONE HCL 200 MG TAB PO SCH (21:42)
[2021-04-13] MEDS: DOCUSATE SOD 100 MG CAP PO SCH (21:42)
[2021-04-13] MEDS: ZOLPIDEM TARTRATE 5 MG TAB PO SCH (21:43)
[2021-04-13] MEDS: FLUOCINONIDE 0.05% TOP CREAM 15GM TOP SCH (21:49)
[2021-04-13 22:00] VITALS: BP 133/72
[2021-04-14] MEDS: HYDROmorphone HCL 2 MG/ML VL IV PRN ×6 (00:32→19:46)
[2021-04-14] MEDS: ceFAZolin 1GM/50ML 50 ML IV SCH (02:24)
[2021-04-14] MEDS: HYDROcodone-ACET 5/325MG TAB PO PRN ×2 (02:27→11:10)
[2021-04-14 05:00] VITALS: BP 136/67
[2021-04-14] MEDS: LORazepam 0.5 MG TAB PO SCH ×4 (05:15→21:23)
[2021-04-14 07:19] LABS: Basophils # (auto) 0 10 ^3/uL (0-0.2); Basophils % (auto) 0.3 % (0.0-2.0); Eosinophils # (auto) 0.1 10 ^3/uL (0-0.8); Eosinophils % (auto) 0.6 % (0.0-7.0); Hematocrit 43.1 % (41.0-53.0); Hemoglobin 14.4 g/dL (13.5-17.5); Lymphocytes # (auto) 1.1 10 ^3/uL (0.4-5.4); Lymphocytes % (auto) 6.7 % (10.0-50.0); Mean Corpuscular Hemoglobin 30.5 pg (28.0-32.0); Mean Corpuscular Hgb Conc. 33.4 g/dL (32.0-36.0); Mean Corpuscular Volume 91.4 fL (80.0-100.0); Monocytes # (auto) 1.4 10 ^3/uL (0-1.3); Monocytes % (auto) 8.7 % (0.0-12.0); Neutrophils % (auto) 83.7 % (37.0-80.0); Nucleated Red Blood Cells % 0.1 %; Platelet Count (auto) 150 10^3/uL (140-450); Red Blood Cells 4.71 10^6/uL (4.5-5.90); Red Cell Distribution Width 14.3 % (11.8-14.3); White Blood Cell 16.7 10^3/uL (4.4-10.8)
[2021-04-14 07:34] LABS: Calcium 8.4 mg/dL (8.5-10.1); Potassium 3.7 mmol/L (3.5-5.1)
[2021-04-14 07:38] LABS: BUN/Creatinine Ratio 15.9
[2021-04-14 08:37] VITALS: BP 101/59
[2021-04-14] MEDS: amLODIPine BESYLATE 5 MG TAB PO SCH (09:37)
[2021-04-14] MEDS: CHOLECALCIFEROL (VITD3) 1,000UNIT=25mCg TAB PO SCH (09:37)
[2021-04-14] MEDS: TAMSULOSIN HYDROCHLORIDE 0.4 MG CAP PO SCH (09:37)
[2021-04-14] MEDS: METOPROLOL SUCCINATE XL 50 MG TAB PO SCH (09:37)
[2021-04-14] MEDS: AMIODARONE HCL 200 MG TAB PO SCH ×2 (09:37→21:27)
[2021-04-14] MEDS: DOCUSATE SOD 100 MG CAP PO SCH ×2 (09:37→21:23)
[2021-04-14] MEDS: FLUOCINONIDE 0.05% TOP CREAM 15GM TOP SCH ×2 (09:38→21:23)
[2021-04-14] MEDS: LACTATED RINGER'S 1,000 ML IV SCH (09:38)
[2021-04-14 12:47] VITALS: BP 110/69
[2021-04-14 17:00] VITALS: BP 120/68
[2021-04-14 22:00] VITALS: BP 111/68
[2021-04-14] MEDS: ZOLPIDEM TARTRATE 5 MG TAB PO SCH (22:38)
[2021-04-15] MEDS: HYDROmorphone HCL 2 MG/ML VL IV PRN ×8 (00:49→22:59)
[2021-04-15 04:46] VITALS: BP 100/63
[2021-04-15] MEDS: ceFAZolin 1GM/50ML 50 ML IV SCH ×3 (06:03→22:07)
[2021-04-15] MEDS: LACTATED RINGER'S 1,000 ML IV SCH ×3 (06:03→16:30)
[2021-04-15] MEDS: LORazepam 0.5 MG TAB PO SCH ×4 (06:04→21:37)
[2021-04-15 06:17] LABS: Hematocrit 31.3 % (41.0-53.0)
[2021-04-15 09:00] VITALS: BP 114/66
[2021-04-15] MEDS: DOCUSATE SOD 100 MG CAP PO SCH ×2 (11:06→22:07)
[2021-04-15] MEDS: TAMSULOSIN HYDROCHLORIDE 0.4 MG CAP PO SCH (11:08)
[2021-04-15] MEDS: AMIODARONE HCL 200 MG TAB PO SCH ×2 (11:08→22:07)
[2021-04-15] MEDS: amLODIPine BESYLATE 5 MG TAB PO SCH (11:08)
[2021-04-15] MEDS: CHOLECALCIFEROL (VITD3) 1,000UNIT=25mCg TAB PO SCH (11:10)
[2021-04-15] MEDS: METOPROLOL SUCCINATE XL 50 MG TAB PO SCH (11:11)
[2021-04-15] MEDS: FLUOCINONIDE 0.05% TOP CREAM 15GM TOP SCH ×2 (11:13→22:07)
[2021-04-15 13:00] VITALS: BP 108/67
[2021-04-15 17:00] VITALS: BP 111/71
[2021-04-15 20:45] VITALS: BP 121/78
[2021-04-15] MEDS: ZOLPIDEM TARTRATE 5 MG TAB PO SCH (22:07)
[2021-04-16] MEDS: HYDROcodone-ACET 5/325MG TAB PO PRN (00:09)
[2021-04-16] MEDS: HYDROmorphone HCL 2 MG/ML VL IV PRN ×8 (03:34→23:06)
[2021-04-16 04:27] VITALS: BP 120/76
[2021-04-16] MEDS: ceFAZolin 1GM/50ML 50 ML IV SCH ×3 (05:31→22:59)
[2021-04-16] MEDS: LORazepam 0.5 MG TAB PO SCH ×4 (05:31→22:00)
[2021-04-16 05:39] LABS: Hematocrit 27.8 % (41.0-53.0)
[2021-04-16 09:00] VITALS: BP 130/77
[2021-04-16] MEDS: TAMSULOSIN HYDROCHLORIDE 0.4 MG CAP PO SCH (09:09)
[2021-04-16] MEDS: AMIODARONE HCL 200 MG TAB PO SCH ×2 (09:09→22:59)
[2021-04-16] MEDS: DOCUSATE SOD 100 MG CAP PO SCH ×2 (09:09→22:59)
[2021-04-16] MEDS: CHOLECALCIFEROL (VITD3) 1,000UNIT=25mCg TAB PO SCH (09:10)
[2021-04-16] MEDS: METOPROLOL SUCCINATE XL 50 MG TAB PO SCH (09:10)
[2021-04-16] MEDS: amLODIPine BESYLATE 5 MG TAB PO SCH (09:10)
[2021-04-16] MEDS: FLUOCINONIDE 0.05% TOP CREAM 15GM TOP SCH ×2 (09:10→22:00)
[2021-04-16 09:49] VITALS: BP 130/77
[2021-04-16 13:00] VITALS: BP 122/80
[2021-04-16 17:00] VITALS: BP 109/77
[2021-04-16 22:00] VITALS: BP 124/76
[2021-04-16] MEDS: ZOLPIDEM TARTRATE 5 MG TAB PO SCH (22:00)
[2021-04-17] MEDS: HYDROmorphone HCL 2 MG/ML VL IV PRN ×8 (01:33→21:09)
[2021-04-17 05:00] VITALS: BP 119/69
[2021-04-17] MEDS: LORazepam 0.5 MG TAB PO SCH ×4 (06:00→22:00)
[2021-04-17] MEDS: ceFAZolin 1GM/50ML 50 ML IV SCH ×3 (06:16→22:52)
[2021-04-17 09:00] VITALS: BP 114/72
[2021-04-17] MEDS: FLUOCINONIDE 0.05% TOP CREAM 15GM TOP SCH ×2 (10:00→22:00)
[2021-04-17] MEDS: DOCUSATE SOD 100 MG CAP PO SCH ×2 (10:15→22:53)
[2021-04-17] MEDS: TAMSULOSIN HYDROCHLORIDE 0.4 MG CAP PO SCH (10:15)
[2021-04-17] MEDS: amLODIPine BESYLATE 5 MG TAB PO SCH (10:16)
[2021-04-17] MEDS: METOPROLOL SUCCINATE XL 50 MG TAB PO SCH (10:16)
[2021-04-17] MEDS: CHOLECALCIFEROL (VITD3) 1,000UNIT=25mCg TAB PO SCH (10:16)
[2021-04-17] MEDS: AMIODARONE HCL 200 MG TAB PO SCH ×2 (10:16→22:54)
[2021-04-17 13:00] VITALS: BP 115/78
[2021-04-17 17:00] VITALS: BP 122/86
[2021-04-17 21:55] VITALS: BP 110/72
[2021-04-17] MEDS: ZOLPIDEM TARTRATE 5 MG TAB PO SCH (22:52)
[2021-04-18] MEDS: HYDROmorphone HCL 2 MG/ML VL IV PRN ×8 (00:29→22:27)
[2021-04-18 05:00] VITALS: BP 122/76
[2021-04-18] MEDS: LORazepam 0.5 MG TAB PO SCH ×4 (06:00→21:14)
[2021-04-18] MEDS: ceFAZolin 1GM/50ML 50 ML IV SCH ×3 (06:01→21:14)
[2021-04-18 08:00] VITALS: BP 114/69
[2021-04-18] MEDS: DOCUSATE SOD 100 MG CAP PO SCH ×2 (08:15→21:14)
[2021-04-18] MEDS: AMIODARONE HCL 200 MG TAB PO SCH ×2 (08:16→21:14)
[2021-04-18] MEDS: TAMSULOSIN HYDROCHLORIDE 0.4 MG CAP PO SCH (08:16)
[2021-04-18] MEDS: amLODIPine BESYLATE 5 MG TAB PO SCH (08:17)
[2021-04-18] MEDS: CHOLECALCIFEROL (VITD3) 1,000UNIT=25mCg TAB PO SCH (08:19)
[2021-04-18] MEDS: METOPROLOL SUCCINATE XL 50 MG TAB PO SCH (08:19)
[2021-04-18] MEDS: FLUOCINONIDE 0.05% TOP CREAM 15GM TOP SCH ×2 (08:20→21:15)
[2021-04-18 08:33] VITALS: BP 114/69
[2021-04-18 12:47] VITALS: BP 123/76
[2021-04-18 16:19] VITALS: BP 145/85
[2021-04-18] MEDS: ZOLPIDEM TARTRATE 5 MG TAB PO SCH (21:14)
[2021-04-18 22:00] VITALS: BP 125/75
[2021-04-19] MEDS: HYDROmorphone HCL 2 MG/ML VL IV PRN ×8 (00:21→21:14)
[2021-04-19 05:00] VITALS: BP 130/84
[2021-04-19] MEDS: LORazepam 0.5 MG TAB PO SCH ×4 (05:25→23:04)
[2021-04-19] MEDS: ceFAZolin 1GM/50ML 50 ML IV SCH ×3 (05:25→23:03)
[2021-04-19 09:00] VITALS: BP 127/70
[2021-04-19 09:40] LABS: Basophils # (auto) 0 10 ^3/uL (0-0.2); Basophils % (auto) 0.7 % (0.0-2.0); Eosinophils # (auto) 0.4 10 ^3/uL (0-0.8); Eosinophils % (auto) 6.9 % (0.0-7.0); Hematocrit 32.3 % (41.0-53.0); Hemoglobin 11.1 g/dL (13.5-17.5); Lymphocytes # (auto) 0.5 10 ^3/uL (0.4-5.4); Lymphocytes % (auto) 8.8 % (10.0-50.0); Mean Corpuscular Hemoglobin 30.6 pg (28.0-32.0); Mean Corpuscular Hgb Conc. 34.2 g/dL (32.0-36.0); Mean Corpuscular Volume 89.5 fL (80.0-100.0); Monocytes # (auto) 0.5 10 ^3/uL (0-1.3); Monocytes % (auto) 9.3 % (0.0-12.0); Neutrophils % (auto) 74.3 % (37.0-80.0); Platelet Count (auto) 207 10^3/uL (140-450); Red Blood Cells 3.61 10^6/uL (4.5-5.90); Red Cell Distribution Width 14.3 % (11.8-14.3); White Blood Cell 5.4 10^3/uL (4.4-10.8)
[2021-04-19] MEDS: amLODIPine BESYLATE 5 MG TAB PO SCH (09:55)
[2021-04-19] MEDS: AMIODARONE HCL 200 MG TAB PO SCH ×2 (09:55→23:04)
[2021-04-19] MEDS: DOCUSATE SOD 100 MG CAP PO SCH ×2 (09:55→23:04)
[2021-04-19] MEDS: TAMSULOSIN HYDROCHLORIDE 0.4 MG CAP PO SCH (09:55)
[2021-04-19] MEDS: CHOLECALCIFEROL (VITD3) 1,000UNIT=25mCg TAB PO SCH (09:55)
[2021-04-19] MEDS: FLUOCINONIDE 0.05% TOP CREAM 15GM TOP SCH ×2 (09:56→22:00)
[2021-04-19 09:57] LABS: BUN/Creatinine Ratio 11.9; Calcium 8.4 mg/dL (8.5-10.1); Potassium 3.4 mmol/L (3.5-5.1)
[2021-04-19 09:59] LABS: Bilirubin, Total 0.4 mg/dL (0.2-1.0); Total Protein 6.6 g/dL (6.4-8.2)
[2021-04-19] MEDS: METOPROLOL SUCCINATE XL 50 MG TAB PO SCH (09:59)
[2021-04-19 13:00] VITALS: BP 138/75
[2021-04-19] MEDS: ARTIFICIAL TEARS 15ml EACHEYE PRN (14:24)
[2021-04-19 17:23] VITALS: BP 126/74
[2021-04-19 22:00] VITALS: BP 139/81
[2021-04-19] MEDS: ZOLPIDEM TARTRATE 5 MG TAB PO SCH (23:03)
[2021-04-19] MEDS: HYDROcodone-ACET 5/325MG TAB PO PRN (23:05)
[2021-04-20] MEDS: HYDROmorphone HCL 2 MG/ML VL IV PRN ×8 (00:37→23:14)
[2021-04-20 05:00] VITALS: BP 119/73
[2021-04-20] MEDS: LORazepam 0.5 MG TAB PO SCH ×4 (05:59→22:41)
[2021-04-20] MEDS: ceFAZolin 1GM/50ML 50 ML IV SCH ×3 (05:59→22:41)
[2021-04-20 09:00] VITALS: BP 118/76
[2021-04-20] MEDS: TAMSULOSIN HYDROCHLORIDE 0.4 MG CAP PO SCH (09:14)
[2021-04-20] MEDS: AMIODARONE HCL 200 MG TAB PO SCH ×2 (09:14→22:42)
[2021-04-20] MEDS: ARTIFICIAL TEARS 15ml EACHEYE PRN (09:14)
[2021-04-20] MEDS: FLUOCINONIDE 0.05% TOP CREAM 15GM TOP SCH ×2 (09:14→22:00)
[2021-04-20] MEDS: CHOLECALCIFEROL (VITD3) 1,000UNIT=25mCg TAB PO SCH (09:15)
[2021-04-20] MEDS: amLODIPine BESYLATE 5 MG TAB PO SCH (09:15)
[2021-04-20] MEDS: METOPROLOL SUCCINATE XL 50 MG TAB PO SCH (09:15)
[2021-04-20] MEDS: DOCUSATE SOD 100 MG CAP PO SCH ×2 (09:15→22:41)
[2021-04-20 13:00] VITALS: BP 125/78
[2021-04-20 17:00] VITALS: BP 136/74
[2021-04-20 21:41] VITALS: BP 124/79
[2021-04-20] MEDS: ZOLPIDEM TARTRATE 5 MG TAB PO SCH (22:41)
[2021-04-21] MEDS: HYDROmorphone HCL 2 MG/ML VL IV PRN ×9 (01:15→22:29)
[2021-04-21 05:45] VITALS: BP 117/80
[2021-04-21] MEDS: ceFAZolin 1GM/50ML 50 ML IV SCH ×3 (06:37→21:26)
[2021-04-21] MEDS: LORazepam 0.5 MG TAB PO SCH ×4 (06:37→21:26)
[2021-04-21 09:00] VITALS: BP 124/81
[2021-04-21] MEDS: FLUOCINONIDE 0.05% TOP CREAM 15GM TOP SCH ×2 (10:00→22:00)
[2021-04-21] MEDS: DOCUSATE SOD 100 MG CAP PO SCH ×2 (10:03→21:26)
[2021-04-21] MEDS: TAMSULOSIN HYDROCHLORIDE 0.4 MG CAP PO SCH (10:04)
[2021-04-21] MEDS: METOPROLOL SUCCINATE XL 50 MG TAB PO SCH (10:04)
[2021-04-21] MEDS: amLODIPine BESYLATE 5 MG TAB PO SCH (10:04)
[2021-04-21] MEDS: AMIODARONE HCL 200 MG TAB PO SCH ×2 (10:04→21:27)
[2021-04-21] MEDS: CHOLECALCIFEROL (VITD3) 1,000UNIT=25mCg TAB PO SCH (10:05)
[2021-04-21] MEDS ORDERED: POTASSIUM EFFERVESENT TAB 25 MEQ PO ONE (15:00)
[2021-04-21] MEDS: HYDROcodone-ACET 5/325MG TAB PO PRN (16:02)
[2021-04-21 17:00] VITALS: BP 116/76
[2021-04-21] MEDS: ZOLPIDEM TARTRATE 5 MG TAB PO SCH (21:26)
[2021-04-21 22:25] VITALS: BP 125/70
[2021-04-22] MEDS: HYDROmorphone HCL 2 MG/ML VL IV PRN ×9 (00:28→22:10)
[2021-04-22 05:54] VITALS: BP 142/83
[2021-04-22] MEDS: LORazepam 0.5 MG TAB PO SCH ×4 (07:07→22:10)
[2021-04-22] MEDS: ceFAZolin 1GM/50ML 50 ML IV SCH ×3 (07:07→22:11)
[2021-04-22 08:30] VITALS: BP 140/76
[2021-04-22] MEDS: FLUOCINONIDE 0.05% TOP CREAM 15GM TOP SCH ×2 (09:37→22:12)
[2021-04-22] MEDS: DOCUSATE SOD 100 MG CAP PO SCH ×2 (09:38→22:10)
[2021-04-22] MEDS: METOPROLOL SUCCINATE XL 50 MG TAB PO SCH (09:38)
[2021-04-22] MEDS: amLODIPine BESYLATE 5 MG TAB PO SCH (09:38)
[2021-04-22] MEDS: AMIODARONE HCL 200 MG TAB PO SCH ×2 (09:39→22:10)
[2021-04-22] MEDS: TAMSULOSIN HYDROCHLORIDE 0.4 MG CAP PO SCH (09:39)
[2021-04-22] MEDS: CHOLECALCIFEROL (VITD3) 1,000UNIT=25mCg TAB PO SCH (09:39)
[2021-04-22 12:30] VITALS: BP 143/80
[2021-04-22 17:00] VITALS: BP 126/75
[2021-04-22 22:00] VITALS: BP 113/62
[2021-04-22] MEDS: ZOLPIDEM TARTRATE 5 MG TAB PO SCH (22:10)
[2021-04-23 05:00] VITALS: BP 115/60
[2021-04-23] MEDS: LORazepam 0.5 MG TAB PO SCH ×2 (05:28→12:35)
[2021-04-23] MEDS: ceFAZolin 1GM/50ML 50 ML IV SCH (05:29)
[2021-04-23] MEDS: HYDROmorphone HCL 2 MG/ML VL IV PRN ×3 (05:29→14:59)
[2021-04-23 09:00] VITALS: BP 130/83
[2021-04-23] MEDS: DOCUSATE SOD 100 MG CAP PO SCH (10:42)
[2021-04-23] MEDS: AMIODARONE HCL 200 MG TAB PO SCH (10:43)
[2021-04-23] MEDS: TAMSULOSIN HYDROCHLORIDE 0.4 MG CAP PO SCH (10:43)
[2021-04-23] MEDS: amLODIPine BESYLATE 5 MG TAB PO SCH (10:46)
[2021-04-23] MEDS: METOPROLOL SUCCINATE XL 50 MG TAB PO SCH (10:46)
[2021-04-23] MEDS: CHOLECALCIFEROL (VITD3) 1,000UNIT=25mCg TAB PO SCH (10:47)
[2021-04-23] MEDS: FLUOCINONIDE 0.05% TOP CREAM 15GM TOP SCH (10:47)
[2021-04-23 13:00] VITALS: BP 104/66
== END 2021-04-23 16:35 | disposition home or self-care (01) | DRG 493 ==
LOC: SUR 07:58 → TELE 14:45 → TELE-EAST 15:57
PROVIDERS: ADMIT Orthopaedic Surgery Sports Medicine; ATTEND Orthopaedic Surgery Sports Medicine
PROC: 0PSG04Z Reposition Left Humeral Shaft with Internal Fixation Device, Open Approach (ICD-10-PCS; principal; 2021-04-13 11:03)
DX: S42.302A Unspecified fracture of shaft of humerus, left arm, initial encounter for closed fracture (principal); E87.1 Hypo-osmolality and hyponatremia; M87.9 Osteonecrosis, unspecified; Z20.822 Contact with and (suspected) exposure to COVID-19; Z96.643 Presence of artificial hip joint, bilateral; Y90.9 Presence of alcohol in blood, level not specified; W18.39XA Other fall on same level, initial encounter; F10.10 Alcohol abuse, uncomplicated; Z95.2 Presence of prosthetic heart valve; Z79.899 Other long term (current) drug therapy; Y93.89 Activity, other specified; Y92.89 Other specified places as the place of occurrence of the external cause; Y99.8 Other external cause status
CPT/HCPCS: 36415; 73060; 76001; 80048; 80053; 81001; 85014; 85018; 85025; 85049; 86850; 86900; 86901; 97116; 97530; G0378; J0690; J2001; J2250; J2405; J2704; J3490

== ENCOUNTER → 2022-04-25 | Outpatient (CLI) | payer BC, MEDICARE | END | disposition home or self-care (01) | LOC: Rad HDHVI 15:36 | PROVIDERS: ATTEND Internal Medicine Cardiovascular Disease | DX: Z01.818 Encounter for other preprocedural examination (principal); M47.814 Spondylosis without myelopathy or radiculopathy, thoracic region; T84.090A Other mechanical complication of internal right hip prosthesis, initial encounter; X58.XXXA Exposure to other specified factors, initial encounter | CPT/HCPCS: 71046 ==

== ENCOUNTER → 2022-12-27 | Outpatient (CLI) | payer BC | END | disposition home or self-care (01) | LOC: Rad HDHVI 13:55 | PROVIDERS: ATTEND Internal Medicine Cardiovascular Disease | DX: I08.8 Other rheumatic multiple valve diseases (principal); I10 Essential (primary) hypertension; R07.89 Other chest pain | CPT/HCPCS: 93306 ==

== ENCOUNTER 2023-05-01 13:02 | Emergency (ER) | payer BC ==
[~2023-05-01] VITALS: Ht 182.9 cm; Wt 68.2 kg
[~2023-05-01 13:02] MED LIST changes: -AMLO-489 PO; +AMLO1TAB22 PO; +IBUP-1456 PO; -IBUP800T27 PO; -LISI40TA11; +LISI40TA16
[2023-05-01] MEDS ORDERED: ONDANSETRON ODT 4 MG TAB PO ONE (16:30)
[2023-05-01] MEDS ORDERED: MORPHINE SULFATE 4 MG/ML SYR/VIAL IM ONE (16:30)
[2023-05-01 17:01] VITALS: BP 136/80
== END 2023-05-01 17:11 | disposition home or self-care (01) ==
LOC: EDBD 13:02 → ER 13:02 → EDUNIT# 13:02 → ER 17:11
DX: M25.551 Pain in right hip (principal); F32.9 Major depressive disorder, single episode, unspecified; I11.0 Hypertensive heart disease with heart failure; I50.89 Other heart failure; Z88.8 Allergy status to other drugs, medicaments and biological substances; Z79.899 Other long term (current) drug therapy; Z86.73 Personal history of transient ischemic attack (TIA), and cerebral infarction without residual deficits; Z90.49 Acquired absence of other specified parts of digestive tract; Z90.89 Acquired absence of other organs; Z98.890 Other specified postprocedural states
CPT/HCPCS: 73502; 96372; 99283; J2270; Q0162

== ENCOUNTER 2023-07-04 17:20 | Inpatient (IN) | payer BC, MEDICARE ==
[~2023-07-04] VITALS: Ht 180.3 cm; Wt 52.3 kg
[2023-07-04 22:00] VITALS: BP 146/74; PULSE 55; RESP 17; TEMP 97.5; O2SAT 93
[2023-07-04 22:06] VITALS: BP 146/74; PULSE 55; PULSE 56; RESP 17; RESP 18; TEMP 97.5; TEMP 97.7; O2SAT 94
[2023-07-04] MEDS ORDERED: ATOR10TA52 PO (23:13)
[2023-07-04] MEDS ORDERED: FLUT1AER3 IN (23:13)
[2023-07-05] VITALS (9 sets, daily range): BP systolic 105–146; BP diastolic 51–78; PULSE 45–58; RESP 17–20; TEMP 97.3–97.9; O2SAT 93–99
[2023-07-05] MEDS: PIPERACILLIN-TAZO 4.5GM 100 ML IV SCH ×3 (00:20→18:35)
[2023-07-05] MEDS: LORazepam 0.5 MG TAB PO PRN ×4 (00:31→20:45)
[2023-07-05] MEDS: HYDROcodone-ACET 10/325MG TAB PO PRN ×3 (03:31→18:42)
[2023-07-05] MEDS: LEVOTHYROXINE SODIUM 50 MCG TAB PO SCH (06:07)
[2023-07-05 06:19] LABS: Basophils # (auto) 0.1 10 ^3/uL (0-0.2); Basophils % (auto) 1.2 % (0.0-2.0); Eosinophils # (auto) 0.6 10 ^3/uL (0-0.8); Eosinophils % (auto) 6.8 % (0.0-7.0); Hematocrit 40.2 % (41.0-53.0); Hemoglobin 13.9 g/dL (13.5-17.5); Lymphocytes # (auto) 1.6 10 ^3/uL (0.4-5.4); Mean Corpuscular Hemoglobin 32.9 pg (28.0-32.0); Mean Corpuscular Hgb Conc. 34.6 g/dL (32.0-36.0); Mean Corpuscular Volume 95.1 fL (80.0-100.0); Monocytes # (auto) 0.8 10 ^3/uL (0-1.3); Monocytes % (auto) 9.3 % (0.0-12.0); Neutrophils # (auto) 5.4 10 ^3/uL (1.6-8.6); Neutrophils % (auto) 63.7 % (37.0-80.0); Nucleated Red Blood Cells % 0.2 %; Red Blood Cells 4.23 10^6/uL (4.5-5.90); Red Cell Distribution Width 13.9 % (11.8-14.3); White Blood Cell 8.4 10^3/uL (4.4-10.8)
[2023-07-05 06:28] LABS: Alanine Aminotransferase 23 U/L (7-40); Albumin 4.3 g/dL (3.2-4.8); Alkaline Phosphatase 67 U/L (46-116); Anion Gap 4 (5-15); Aspartate Aminotransferase 21 U/L (13-40); BUN/Creatinine Ratio 11.7 (10.0-20.0); Bilirubin, Total 0.5 mg/dL (0.2-1.0); Blood Urea Nitrogen 13 mg/dL (9-23); Calcium 9.1 mg/dL (8.7-10.4); Carbon Dioxide 26 mmol/L (20-30); Chloride 106 mmol/L (98-107); Glucose 102 mg/dL (74-106); Potassium 4.2 mmol/L (3.5-5.1); Sodium 136 mmol/L (136-145); Total Protein 6.8 g/dL (5.7-8.2)
[2023-07-05] MEDS: METOPROLOL SUCCINATE XL 50 MG TAB PO SCH ×2 (10:00→21:01)
[2023-07-05] MEDS: AMIODARONE HCL 200 MG TAB PO SCH (10:23)
[2023-07-05] MEDS: LISINOPRIL 20 MG TAB PO SCH (10:24)
[2023-07-05] MEDS: amLODIPine BESYLATE 5 MG TAB PO SCH (10:25)
[2023-07-05] MEDS: ATORVASTATIN 20 MG TAB PO SCH (20:59)
[2023-07-06] VITALS (11 sets, daily range): BP systolic 113–151; BP diastolic 68–85; PULSE 50–62; RESP 16–18; TEMP 97.6–98.4; O2SAT 93–100
[2023-07-06] MEDS: PIPERACILLIN-TAZO 4.5GM 100 ML IV SCH ×3 (01:00→17:51)
[2023-07-06] MEDS: LORazepam 0.5 MG TAB PO PRN ×4 (01:04→21:03)
[2023-07-06] MEDS: HYDROcodone-ACET 10/325MG TAB PO PRN ×3 (01:11→19:49)
[2023-07-06] MEDS: LEVOTHYROXINE SODIUM 50 MCG TAB PO SCH (06:10)
[2023-07-06] MEDS: AMIODARONE HCL 200 MG TAB PO SCH (08:58)
[2023-07-06] MEDS: LISINOPRIL 20 MG TAB PO SCH (08:58)
[2023-07-06] MEDS: amLODIPine BESYLATE 5 MG TAB PO SCH (08:59)
[2023-07-06] MEDS: METOPROLOL SUCCINATE XL 50 MG TAB PO SCH ×2 (09:00→21:02)
[2023-07-06] MEDS: IPRATROPIUM BROM 0.5 MG/2.5ML INH SOL NEB PRN ×2 (10:13→15:59)
[2023-07-06] MEDS: ATORVASTATIN 20 MG TAB PO SCH (21:01)
[2023-07-07] MEDS: PIPERACILLIN-TAZO 4.5GM 100 ML IV SCH ×2 (03:43→09:12)
[2023-07-07] MEDS: HYDROcodone-ACET 10/325MG TAB PO PRN ×3 (03:44→14:49)
[2023-07-07] MEDS: LORazepam 0.5 MG TAB PO PRN ×3 (04:22→16:18)
[2023-07-07 05:00] VITALS: BP 150/83; PULSE 56; RESP 18; TEMP 97.7; O2SAT 95
[2023-07-07] MEDS: LEVOTHYROXINE SODIUM 50 MCG TAB PO SCH (07:29)
[2023-07-07 08:00] VITALS: PULSE 59; RESP 18; O2SAT 98
[2023-07-07 09:00] VITALS: BP 116/68; PULSE 52; RESP 15; TEMP 97.9; O2SAT 94
[2023-07-07] MEDS: METOPROLOL SUCCINATE XL 50 MG TAB PO SCH (09:17)
[2023-07-07] MEDS: AMIODARONE HCL 200 MG TAB PO SCH (09:17)
[2023-07-07] MEDS: amLODIPine BESYLATE 5 MG TAB PO SCH (09:17)
[2023-07-07] MEDS: LISINOPRIL 20 MG TAB PO SCH (09:17)
[2023-07-07 12:05] VITALS: O2SAT 93
[2023-07-07 16:43] VITALS: BP 126/76; PULSE 64; RESP 17; TEMP 98; O2SAT 94
== END 2023-07-07 17:20 | disposition home or self-care (01) | DRG 556 ==
LOC: UNDOADMIN 19:17 → EAST 19:17
PROVIDERS: ADMIT Internal Medicine Cardiovascular Disease; ATTEND Internal Medicine Cardiovascular Disease
DX: M25.551 Pain in right hip (principal); I10 Essential (primary) hypertension; Z96.643 Presence of artificial hip joint, bilateral; H91.90 Unspecified hearing loss, unspecified ear; I11.9 Hypertensive heart disease without heart failure; R29.6 Repeated falls; Z95.2 Presence of prosthetic heart valve; Z88.8 Allergy status to other drugs, medicaments and biological substances
CPT/HCPCS: 36415; 72192; 78315; 80053; 85025; 94640; G0378; J2543

== ENCOUNTER → 2023-12-04 | Outpatient (CLI) | payer BC, MEDICARE ==
[~2023-12-04] MED LIST changes: +ATOR10TA52 PO; +FLUT1AER3 IN
== END | disposition home or self-care (01) ==
LOC: Rad HDHVI 13:59
PROVIDERS: ATTEND Internal Medicine Cardiovascular Disease
DX: I08.3 Combined rheumatic disorders of mitral, aortic and tricuspid valves (principal); R07.89 Other chest pain; I11.9 Hypertensive heart disease without heart failure
CPT/HCPCS: 93306

== ENCOUNTER → 2024-06-10 | Outpatient (CLI) | payer BC | END | disposition home or self-care (01) | LOC: Rad HDHVI 14:35 | PROVIDERS: ATTEND Internal Medicine Cardiovascular Disease | DX: I82.402 Acute embolism and thrombosis of unspecified deep veins of left lower extremity (principal) | CPT/HCPCS: 93931 ==

== ENCOUNTER → 2024-08-06 | Outpatient (CLI) | payer BC | END | disposition home or self-care (01) | LOC: Rad HDHVI 15:46 | PROVIDERS: ATTEND Internal Medicine Cardiovascular Disease | DX: R00.2 Palpitations (principal); I10 Essential (primary) hypertension | CPT/HCPCS: 93306 ==

== ENCOUNTER → 2025-01-10 | Outpatient (CLI) | payer BC ==
[2025-01-10 10:50] LABS: Urine Bacteria None Seen /hpf (None Seen)
[2025-01-10 11:25] LABS: Basophils # (auto) 0.1 10 ^3/uL (0-0.2); Eosinophils # (auto) 0.7 10 ^3/uL (0-0.8); Eosinophils % (auto) 9.9 % (0.0-7.0); Hematocrit 40.2 % (41.0-53.0); Hemoglobin 13.6 g/dL (13.5-17.5); Lymphocytes % (auto) 15.3 % (10.0-50.0); Mean Corpuscular Hemoglobin 32.6 pg (28.0-32.0); Mean Corpuscular Hgb Conc. 33.8 g/dL (32.0-36.0); Mean Corpuscular Volume 96.3 fL (80.0-100.0); Monocytes # (auto) 0.5 10 ^3/uL (0-1.3); Monocytes % (auto) 7.4 % (0.0-12.0); Neutrophils # (auto) 4.4 10 ^3/uL (1.6-8.6); Neutrophils % (auto) 66.4 % (37.0-80.0); Platelet Count (auto) 185 10^3/uL (140-450); Red Blood Cells 4.17 10^6/uL (4.5-5.90); Red Cell Distribution Width 13.4 % (11.8-14.3); White Blood Cell 6.7 10^3/uL (4.4-10.8)
[2025-01-10 11:43] LABS: Anion Gap 8 (5-15); Carbon Dioxide 27 mmol/L (20-31); Chloride 98 mmol/L (98-107); Potassium 3.9 mmol/L (3.5-5.1)
[2025-01-10 11:44] LABS: Calcium 9.6 mg/dL (8.7-10.4)
[2025-01-10 11:48] LABS: Sodium 133 mmol/L (136-145); Urine Blood Negative /uL (Negative); Urine Clarity Clear (Clear); Urine Color Light-Yellow (Yellow); Urine Protein, UAD Negative (Negative); Urine Specific Gravity 1.011 (1.001-1.035); Urine Squamous Epithelial Cell None Seen /hpf (<5); Urine Urobilinogen Normal (Negative)
[2025-01-10 11:49] LABS: BUN/Creatinine Ratio 14.7 (10.0-20.0); Blood Urea Nitrogen 14 mg/dL (9-23); Glucose 106 mg/dL (74-106); Triglycerides 68 mg/dL (< 150)
[2025-01-10 11:50] LABS: LDL Cholesterol 89 mg/dL (< 100)
[2025-01-10 11:51] LABS: Cholesterol 155 mg/dL (< 200); HDL Cholesterol 53 mg/dL (40-59); Urine WBC < 1 /HPF (0-3)
== END | disposition home or self-care (01) ==
LOC: LAB 10:30
PROVIDERS: ATTEND Internal Medicine Cardiovascular Disease
DX: C61 Malignant neoplasm of prostate (principal); I10 Essential (primary) hypertension; E11.9 Type 2 diabetes mellitus without complications; E55.9 Vitamin D deficiency, unspecified; D64.9 Anemia, unspecified
CPT/HCPCS: 36415; 80048; 80061; 81001; 83036; 84153; 84403; 84443; 85025